=== PATIENT | male | born 1950 | race Caucasian/White ===

== ENCOUNTER 2017-02-04 16:15 | Outpatient (CLI) ==
[2015-03-07 20:37] VITALS: BMI 20.8
--- NOTE | 2017-02-04 17:00 | CT ---
Exam: CT exam of the brain without intravenous contrast. Comparison: 10/20/2013. Reason for exam: Hypertension. FINDINGS: No acute intracranial hemorrhage, mass effect, ventricular dilatation, or territorial inf arction. The quadrigeminal and ambient cisterns are patent. There is no extraaxial fluid collection . Parenchymal changes are seen throughout consistent with chronic microvascular disease. Hypodensit ies in the basal ganglia, thalamus, and vaughn are consistent with previous infarcts. The calvarium is intact. There is extensive edematous change in the white matter tracts. There is a small air-fluid level in the left frontal sinus and left sphenoid sinus. The remainder o f the imaged paranasal sinuses and mastoid air cells are unopacified. Impression: 1. No acute intracranial findings. 2. Chronic microvascular disease with old lacunar, thalamic, and pontine infarcts with edematous isaias nges in the white matter tracts. Imaging findings are likely related to hypertensive encephalopathy. Recommend noncontrast MRI of the brain on outpatient basis for further evaluation. Report faxed to [facility] at 1655 hours on 02/04/2017
--- NOTE | 2017-02-04 17:01 | US ---
EXAM: Ultrasound bilateral carotid duplex. HISTORY: Hypertension. Previous cerebrovascular accident. COMPARISON: None available. TECHNIQUE: Multiple chavis scale and color Doppler images were obtained. FINDINGS: Please note that estimates of internal carotid artery stenoses are based upon NASCET regina garsia. Right carotid: Calcified plaquing present, greatest in the carotid bulb and mid right internal madera tid artery. Possible 50% stenosis in the carotid bulb although no 50% stenosis identified in the in ternal carotid artery. Peak systolic velocity measurement in the right internal carotid artery is 0 .7 meters per second. Right internal to common carotid artery peak systolic velocity ratio measures 1.9. End diastolic velocity measurement in the right internal carotid artery is 0.2 meters per sec ond. Flow in the right vertebral artery is antegrade. Left carotid: Mixed plaquing present without visualized 50% or greater stenosis in the internal car otid artery. Plaquing is greatest in the carotid bulb, which could cause 50% stenosis. Peak systol ic velocity measurement in the left internal carotid artery is 0.9 meters per second. Left internal to common carotid artery peak systolic velocity ratio measures 1.3. End diastolic velocity measure ment in the left internal carotid artery measures 0.4 meters per second. Flow in the left vertebral artery is antegrade. IMPRESSION: 1. Mild, less than 50%, stenosis in the right and left internal carotid arteries by velocity measur ements. 2. Antegrade flow in both vertebral arteries.
[2017-02-04 17:14] VITALS: BMI 20.2
== END 2017-02-04 16:16 | disposition home or self-care (01) ==
LOC: RAD 16:15
PROVIDERS: ATTEND General Practice
DX: I10 Essential (primary) hypertension (principal); I63.9 Cerebral infarction, unspecified; E78.5 Hyperlipidemia, unspecified; E11.9 Type 2 diabetes mellitus without complications; R27.0 Ataxia, unspecified

== ENCOUNTER 2017-02-04 16:22 | Inpatient (IN) ==
[2017-02-04 17:14] VITALS: BMI 20.2
[2017-02-04] MEDS ORDERED: COZAAR ONE (18:08)
[2017-02-04] MEDS: NORVASC PO SCH (18:09)
[2017-02-04] MEDS: COZAAR PO SCH ×3 (18:09→21:02)
[2017-02-04] MEDS: SODIUM CHLORIDE 1,000 ML IV SCH (18:12)
[2017-02-04 18:13] LABS: BASOPHILS % (AUTO) 0.4 % (0.0-3.0); EOSINOPHILS % (AUTO) 0.4 % (0.0-7.0); HEMATOCRIT 50.4 % (42.0-52.0); HEMOGLOBIN 17.4 g/dl (14.0-18.0); IMMATURE GRANULOCYTE % (AUTO) 0.2 % (0.0-5.0); LYMPHOCYTES # (AUTO) 2.9 K/uL (0.60-3.4); LYMPHOCYTES % (AUTO) 34.1 (10.0-50.0); MEAN CORPUSCULAR HEMOGLOBIN 31.2 pg (27.0-31.0); MEAN CORPUSCULAR HGB CONC 34.5 (31.8-35.4); MEAN CORPUSCULAR VOLUME 90.5 fl (80.0-94.0); MONOCYTES # (AUTO) 0.8 K/uL (0.4-2.0); NEUTROPHILS # (AUTO) 4.8 K/ul (2.0-6.9); NEUTROPHILS % (AUTO) 55.9; PLATELET COUNT 207 10^3/uL (140-440); RED BLOOD COUNT 5.57 10^6/ul (4.70-6.10); WHITE BLOOD COUNT 8.48 K/ul (4.2-10.2)
[2017-02-04 18:47] LABS: BILIRUBIN,URINE Negative (NEGATIVE); KETONES,URINE Negative (NEGATIVE); LEUKOCYTE ESTERASE ,URINE Negative (NEGATIVE); NITRITE,URINE Negative (NEGATIVE); PROTEIN,URINE Negative (NEGATIVE); URINE, BLOOD Trace-intact (NEGATIVE)
[2017-02-04 18:48] LABS: ADD URINE MICROSCOPIC YES
[2017-02-04 18:52] LABS: ALBUMIN/GLOBULIN RATIO 1.14; ANION GAP 12.6; CALCIUM 9.8 mg/dL (8.2-10.2); POTASSIUM 3.6 mmol/L (3.5-5.1); TOTAL PROTEIN 7.5 g/dL (5.8-8.1)
[2017-02-04 18:53] LABS: BILIRUBIN,TOTAL 0.91 mg/dL (0.00-1.20); BUN/CREATININE RATIO 12.6; CHOL/HDL RATIO 5.1 (4.5-6.4); CREATININE 1.19 mg/dL (0.60-1.10)
--- NOTE | 2017-02-04 20:48 | CT ---
Exam: CT thorax without contrast. Clinical indication: Chronic cough and chronic smoker. Coarse lung sounds. TECHNIQUE: Axial unenhanced CT images of the thorax were obtained followed by coronal and sagittal reformats. Comparison is made to the prior study dated 03/07/2015. Findings: There is severe underlying centrilobular emphysema. There are pulmonary granulomas scattered bilaterally, consistent with incidental old healed granulom atous disease. There are no worrisome pulmonary parenchymal nodules. There is a calcified pleural plaque at the right lung base. The remainder of the pleural surface is unremarkable. There are no enlarged axillary, hilar or mediastinal lymph nodes, by size criteria. There are coronary artery calcifications. There are two left-sided nonobstructive renal calculi and the largest of which measures 0.5 cm in di ameter. There are two right-sided renal calculi the largest of which measures 0.3 cm in diameter. The visualized bony structures are unremarkable for the patient's age. Impression: 1. Severe underlying centrilobular emphysema. 2. Coronary artery calcifications. 3. Bilateral nonobstructive renal calculi. 4. Incidental evidence of old healed granulomatous disease.
[2017-02-04] MEDS: LOVENOX SUBCUT SCH (21:02)
[2017-02-05] MEDS: HUMULIN R SUBCUT PRN ×2 (06:06→11:59)
[2017-02-05] MEDS ORDERED: MAG-OX PO SCH (09:00)
[2017-02-05] MEDS ORDERED: NON-FORMULARY MEDICATION (Zinc [Zinc] 50 MG) PO SCH (09:00)
[2017-02-05] MEDS ORDERED: EPA PO SCH (09:00)
[2017-02-05] MEDS ORDERED: DHA PO SCH (09:00)
[2017-02-05] MEDS ORDERED: FISH OIL PO SCH (09:00)
[2017-02-05] MEDS: LOVENOX SUBCUT SCH (09:22)
[2017-02-05] MEDS: NORVASC PO SCH (09:23)
[2017-02-05] MEDS: COZAAR PO SCH ×2 (09:23→20:09)
[2017-02-05] MEDS: ZINC-220 PO SCH (09:23)
[2017-02-05] MEDS: NON-FORMULARY MEDICATION (Cinnamon Bark [Cinnamon] 1,500 MG) PO SCH (09:24)
[2017-02-05] MEDS: MAGNESIUM 600 MG PO SCH (09:25)
[2017-02-05] MEDS: OMEGA-3 FISH OIL PO SCH (09:28)
--- NOTE | 2017-02-05 12:11 | MRI ---
EXAM: MRI brain without IV contrast. DATE: 05 Feb 2017. HISTORY: Right-sided weakness, hypertension, encephalopathy. TECHNIQUE: Sagittal T1W, axial T2W, axial FLAIR, axial T1W, axial DWI, and coronal T2W GRE sequence s of the brain were obtained using 1.2 Sachi magnet. No IV contrast. COMPARISON: CT head 02/04/2017. FINDINGS: The lateral ventricles, temporal tips, third ventricle, Sylvian fissures and many frontal lobe sulci are enlarged due to atrophy. No midline shift, mass effect or abnormal extra-axial flui d collection is apparent. No acute hemorrhage or neoplasm is identified. Broad areas of T2W/FLAIR hyperintensity are observed in the white matter abutting each lateral ventricle, and extending into the miller radiata and centrum semiovale bilaterally. Small number of subcentimeter T2W/FLAIR brigh t foci are scattered within the subcortical white matter of both cerebral hemispheres. Old right ba karl ganglia infarct (9.5 x 13 mm), left internal capsule infarct (2.7 x 4 mm), and left putamen infa rct (2 mm) are demonstrated on axial image #14. Old right parietal subcortical white matter lacunar infarct (4 mm) is seen on axial image #16. A nearby small region of T2W/FLAIR hyperintensity is de tected. Old left paramidline pontine infarct (5 x 3 mm) is evident. Small areas of IR hyperintens e are also seen within the brachium pontis bilaterally. T2W/T1W slightly bright, DWI bright, acute infarcts are observed within right thalamus (4.5 mm focus ), left thalamus (6.5 mm focus), right external capsule/basal ganglia extending into the right front al miller radiata ( 8 x 5 x 10 mm focus), and left high parietal centrum semiovale / subcortical whi te matter ( 8 x 6.5 x 10 mm focus). The chavis - white matter differentiation is overall normal. The 7th/8th cranial nerve complexes, cerebellopontine angles, and visible cervical spinal cord are norm al. There is no cerebellar tonsillar ectopia. The pituitary gland is small in size, with CSF filli ng part of the pituitary fossa. Corpus callosum body is bowed upward due to ventricular prominence. Flow voids are present in the major intracranial arteries and in the dural venous sinuses. No ane urysm, AVM or dural venous sinus thrombosis is apparent. No orbit abnormality is identified. The m astoid air cells are unremarkable. There is no acute sinusitis. No neck mass or lymphadenopathy is detected. No calvarial neoplasm or acute fracture is evident. Disc space narrowing, small posterio r osteophytes, and mild central canal stenoses are evident at C3-4. IMPRESSIONS: 1. Acute, non-hemorrhagic bilateral thalamic, right basal ganglia/frontal chorionic, and left parie last infarcts. Consider embolic event. No associated vasogenic edema or mass effect. 2. Old bilateral basal ganglia, right parietal lobe, and left internal capsule infarcts. 3. No acute hemorrhage, neoplasm or hydrocephalus. 4. Mild cerebral and minor cerebellar atrophy. 5. Marked supratentorial white matter changes. DDX: Small vessel disease or chronic hypertensive e ncephalopathy is likely. Demyelinating disease (multiple sclerosis), vasculitis, sequelae of infect ion, or metabolic disorders could look similar. 6. C3-4 disc disease and mild central stenosis. 7. Small pituitary gland. No pituitary lesion.
[2017-02-05] MEDS: ASPIRIN EC PO SCH (14:10)
[2017-02-05] MEDS: PLAVIX PO SCH (14:10)
[2017-02-06] MEDS: SODIUM CHLORIDE 1,000 ML IV SCH (02:20)
[2017-02-06] MEDS: ASPIRIN EC PO SCH (08:08)
[2017-02-06] MEDS: ZINC-220 PO SCH (08:08)
[2017-02-06] MEDS: COZAAR PO SCH ×2 (08:08→20:18)
[2017-02-06] MEDS: OMEGA-3 FISH OIL PO SCH (08:08)
[2017-02-06] MEDS: NORVASC PO SCH (08:08)
[2017-02-06] MEDS: PLAVIX PO SCH (08:09)
[2017-02-06] MEDS: NON-FORMULARY MEDICATION (Cinnamon Bark [Cinnamon] 1,500 MG) PO SCH (08:09)
[2017-02-06] MEDS: MAGNESIUM 600 MG PO SCH (08:09)
[2017-02-06] MEDS: HUMULIN R SUBCUT PRN ×2 (11:04→17:24)
[2017-02-06] MEDS: HYDROCHLOROTHIAZIDE PO SCH (20:41)
[2017-02-07 05:01] LABS: BASOPHILS % (AUTO) 0.3 % (0.0-3.0); EOSINOPHILS # (AUTO) 0.1 K/ul (0.0-0.7); EOSINOPHILS % (AUTO) 0.9 % (0.0-7.0); HEMATOCRIT 45.3 % (42.0-52.0); HEMOGLOBIN 15.4 g/dl (14.0-18.0); IMMATURE GRANULOCYTE % (AUTO) 0.4 % (0.0-5.0); LYMPHOCYTES # (AUTO) 3.2 K/uL (0.60-3.4); MEAN CORPUSCULAR HEMOGLOBIN 30.7 pg (27.0-31.0); MEAN CORPUSCULAR VOLUME 90.4 fl (80.0-94.0); MONOCYTES # (AUTO) 0.8 K/uL (0.4-2.0); MONOCYTES % (AUTO) 9.7 (0-10); NEUTROPHILS # (AUTO) 3.9 K/ul (2.0-6.9); NEUTROPHILS % (AUTO) 48.7; PLATELET COUNT 203 10^3/uL (140-440); RED BLOOD COUNT 5.01 10^6/ul (4.70-6.10); WHITE BLOOD COUNT 7.97 K/ul (4.2-10.2)
[2017-02-07 05:57] LABS: ALBUMIN 3.4 g/dL (3.4-5.0); ALBUMIN/GLOBULIN RATIO 1.21; ANION GAP 11.7; BILIRUBIN,TOTAL 1.08 mg/dL (0.00-1.20); BUN/CREATININE RATIO 13.59; CALCIUM 9.3 mg/dL (8.2-10.2); CREATININE 1.03 mg/dL (0.60-1.10); POTASSIUM 3.7 mmol/L (3.5-5.1); TOTAL PROTEIN 6.2 g/dL (5.8-8.1)
[2017-02-07] MEDS: HYDROCHLOROTHIAZIDE PO SCH (08:00)
[2017-02-07] MEDS: NORVASC PO SCH (08:01)
[2017-02-07] MEDS: COZAAR PO SCH ×2 (08:01→20:28)
[2017-02-07] MEDS: ZINC-220 PO SCH (08:01)
[2017-02-07] MEDS: PLAVIX PO SCH (08:01)
[2017-02-07] MEDS: ASPIRIN EC PO SCH (08:01)
[2017-02-07] MEDS: OMEGA-3 FISH OIL PO SCH (08:01)
[2017-02-07] MEDS: NON-FORMULARY MEDICATION (Cinnamon Bark [Cinnamon] 1,500 MG) PO SCH (08:02)
[2017-02-07] MEDS: MAGNESIUM 600 MG PO SCH (08:02)
[2017-02-07] MEDS: HUMULIN R SUBCUT PRN (11:02)
[2017-02-07] MEDS: SODIUM CHLORIDE 1,000 ML IV SCH (12:17)
[2017-02-07] MEDS ORDERED: CRESTOR PO SCH (22:00)
[2017-02-08] MEDS: HUMULIN R SUBCUT PRN ×2 (06:17→11:23)
[2017-02-08] MEDS: ASPIRIN EC PO SCH (08:21)
[2017-02-08] MEDS: NON-FORMULARY MEDICATION (Cinnamon Bark [Cinnamon] 1,500 MG) PO SCH (08:21)
[2017-02-08] MEDS: COZAAR PO SCH (08:22)
[2017-02-08] MEDS: HYDROCHLOROTHIAZIDE PO SCH (08:23)
[2017-02-08] MEDS: MAGNESIUM 600 MG PO SCH (08:24)
[2017-02-08] MEDS: NORVASC PO SCH (08:27)
[2017-02-08] MEDS: OMEGA-3 FISH OIL PO SCH (08:28)
[2017-02-08] MEDS: PLAVIX PO SCH (08:29)
[2017-02-08] MEDS: ZINC-220 PO SCH (08:29)
--- NOTE | 2017-02-08 08:41 | ECHO2D ---
Date of Exam: 02/05/17 [facility] Reason for Echo: THROMBOEMBOLIC CVA, SOB, DM, HTN, DYSLIPIDEMIA M-Mode Normal Adult Results LV Dimensions Normal Adult Results AoV Opening excursions >1.6 >1.6 LVEDD-base- 3.5-5.8 4.7 Ao root dimensions 2.0-3.7 3.3 LVESD-base- 3.1-4.6 L. Atrium dimensions 1.9-3.8 3.7 Post. Wall thickness 0.8-1.1 1.2 IV septum (thickness) 0.7-1.2 1.2 Post. Wall excursion 0.72-1.3 NORMAL Septal motion NORMAL Systolic motion R. Ventricular cavity 1.5-2.0 NORMAL LVEF 60% 51% Paradoxical septal wall motion NORMAL 2-D : 2-D M Mode Echocardiogram was performed using apical four chamber and left parasternal long and short axis views. Mitral, tricuspid and aortic valves appear to be normal. Contractility of the left ventricle seems to be normal, so is the cavity size. Left atrial cavity size and aortic root appear to be normal. There is no pericardial effusion. There is no thrombus noted in the left ventricular or left aortic cavity. No mitral valve prolapse noted. M-MODE: MV: NORMAL AV: NORMAL TV: NORMAL PV: CHAMBER SIZE: NORMAL WALL MOTION: NORMAL PERICARDIUM: NORMAL INTERPRETATION: 1. BORDERLINE LEFT VENTRICULAR HYPERTROPHY 2. NORMAL LEFT VENTRICULAR CONTRACTILITY--NORMAL VALVES (SUBCOSTAL APPROACH BECAUSE OF COPD) MTDD
--- NOTE | 2017-02-08 12:05 | RS.PTINEVL ---
Subjective - Patient information Date of Evaluation: 02/08/17 Date of Arrival on Unit: 02/04/17 Usual Living Arrangement: With Spouse Living Arrangement Comments: lives with Home Environment: House Medical History: Hypertension, CVA/TIA, COPD, Diabetes Subjective Information/ Patient Comments:: Patient reports having trouble walking. States at home he was bumping into stacy and holding onto furniture. - Level of function Prior to this admission, the patient could do the following:: Independent Selfcare, Independent ADL's, Independent Ambulation Interventions - Objective Patient Orientation: Person, Place, Time, Situation Current Interventions: IV's Range of Motion - ROM Right Upper Extremity AROM: WFL's Left Upper Extremity AROM: WFL's Right Lower Extremity AROM: WFL's Left Lower Extremity AROM: WFL's Muscle Strength - Muscle Strength Right Upper Extremity Strength: Normal Left Upper Extremity Strength: Normal Right Lower Extremity Strength: Mild Weakness Left Lower Extremity Strength: Normal Balance - Sitting Balance and Reactions Static Sitting Balance: Good Dynamic Sitting Balance: Good - Standing Balance and Reactions Static Standing Balance: Fair (+) Dynamic Standing Balance: Fair Functional Mobility - Bed Mobility Rolling R/L: Independent Scooting: Independent Supine to Sit: Independent Sit to Supine: Independent - Transfers Sit to Stand: Independent Stand to Sit: Independent Stand Pivot Transfers: Supervision - Safety Awareness Safety Awareness: Fair (patient is impulsive) Ambulation - Ambulation Weight Bearing Status: FWB Assistance needed with Ambulation: Supervision, CGA Quality of Ambulation: Pt amb. without walker, with a straight cane, and with a rolling walker. Without an assistive device or using st. cane, patient is unsteady and presents to be at a high risk for falls. With rolling walker, patient is much steadier and safe. He agrees that he is safer with using the RW. Ambulation Comments: Patient demonstrates decreased right hip and knee flexion during swing phase. Also demonstrates less right ankle DF with fatigue. Patient does not consistently clear his right foot. Factors Affecting Ambulation: Decreased Safety Treatment time - Units charged Gait trainin - Time with patient Total treatment time: 28 (mins) Patient Education - Education Patient Education: Education of diagnosis, Home Safety Assessment - Assessment Comments: Recommend 5 inch fixed wheeled walker for safety with ambulation. Plan Duration of Treatment: One Time Treatment Anticipated Discharge Destination: Home
[2017-02-08 14:11] VITALS: BP 143/86; TEMP 97.9
--- NOTE | 2017-02-09 15:23 | HP ---
CHIEF COMPLAINT: Weakness right upper and lower extremities. SOURCE OF HISTORY: Patient and . HISTORY OF PRESENT ILLNESS: The patient, last January 22, 2017 about 6 p.m., stood up from sitting and had problems with the right leg. He claimed that the right foot is digging into the carpet. He fell soon after that striking the right shoulder against the wall and hitting his right buttock on the floor. He since then had been dragging the right foot until 02/01/2017, when he was able to bring his foot better. He denied any speech problems or headaches. The patient never presented to the emergency room even at the urging of his . He was seen at the office on the day of admission and the patient still has weakness of the right upper and lower extremity. CT scan of the head was done on as an outpatient showing no acute intracranial findings, chronic microvascular disease with old lacunar infarct, thalamic and pontine infarcts with edematous changes in the white matter. Imaging findings are likely related to hypertensive encephalopathy. Recommend noncontrast MRI of the brain. The carotid ultrasound showed less than 50% stenosis of the right and left internal carotid. Antegrade flow of both vertebral arteries. The patient was advised admission because of the weakness of the right upper and lower extremities and also because of the edema of the brain. The patient was agreeable. PAST PERSONAL HISTORY: This patient had cerebral vascular accident in 2008. A cyst was removed in his head in 1963. Injections to the left eye probably secondary to macular degeneration. Cerebral vascular accident in 03/2009. Vasectomy years ago. Medical conditions consisted of hypertension, peripheral arterial disease and diabetes mellitus. The patient has markedly diminished hearing. FAMILY HISTORY: Father of gastric malignancy at age 51. Mother had diabetes mellitus. SOCIAL HISTORY: The patient is and retired from one job and began working with another job. He works at [employer]. His children are grown and he returned to smoking after four months without and smokes about a pack or more a day. He used to smoke more than 2 packs a day. The patient had stopped all of his medications, except over the counter medications and I had not seen him for about two years. MEDICATIONS: Prior to admission. Vitamin E 800 units daily Fish oil 1,200 mg four a day Cinnamon bark 1,500 mg daily Vitamin B complex one daily Zinc 50 mg tablet daily Saw Ripley 1,350 mg daily Magnesium 600 mg daily Red yeast rice 600 mg capsule daily Other over the counter medications daily ALLERGIES: No known drug allergies. REVIEW OF SYSTEMS: CONSTITUTIONAL: The patient had no fever and no chills, but has some fatigue with weakness of the right upper and lower extremity. 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 He denies any seizures or syncopal episodes. He had fallen because of the weakness of the right lower extremity. VISUAL: The patient has problems with the left eye and had injection from the retina MD. He denies any double vision or transient loss of vision. He had been to the retinologist on the day that he was seen at the office since the retina MD told him to come and see his primary provider. AUDITORY: The patient has markedly decreased hearing, but denies any tinnitus, pain or drainage. RESPIRATORY: The patient has cough that is chronic. This patient is known to have chronic obstructive pulmonary disease and had respiratory failure at one time and shortness of breath, plus wheezing. This patient had stopped smoking lasting for about four months, but is back to the old habit of smoking. He claims that he smokes a pack or more a day. CARDIOVASCULAR: Denies any chest pain or chest oppression. GASTROINTESTINAL: The patient denies any anorexia or nausea or change in bowel habits. GENITOURINARY: Denies any pain, frequency or urgency or urination. MUSCULOSKELETAL: The patient has pain in the right shoulder, which is much, much less now and also pain in the right buttock, but also much less. That did not bother him with his ambulation. He still has weakness of the right lower extremity. 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 INTEGUMENT: No rash or pruritus. ENDOCRINE: The patient has diabetes mellitus, but no polyuria or polydipsia. He had stopped his medications. HEMATOLOGIC: No history of prolonged bleeding. No easy bruising. PSYCHIATRIC: Negative. Affect appears to be normal. PHYSICAL EXAMINATION: GENERAL: We have a 66 year old male admitted to the hospital because of weakness on the right upper and lower extremities since 01/22/2017, sudden onset. VITAL SIGNS: Blood pressure was elevated at the office beyond 200 systolic. Vital signs on admission showed a temperature 97.1, pulse 84, blood pressure, left 207/112, right 207/113. Respiratory rate 14, oxygen saturation 96 on room air. He is 5'11" and 144 pounds and 14.4 ounces. BMI 20.2. HEAD: Unremarkable. FACE: Symmetrical and equal with no facial weakness and no significant tenderness in the frontal or maxillary sinus areas to palpation under pressure. EYES: Pupils are widely dilated. These had been dilated at the Retinologist office. EARS: No inflammation of the external canals. No significant cerumen. Light reflects good. MOUTH: No dentures. THROAT: No inflammation, tumors or exudate. NECK: No masses. No bruit. No tenderness. No rigidity. CHEST: Essentially symmetrical and equal with good expansion and no remarkable tenderness. LUNGS: Breath sounds are heard in both sides and diminished and no wheezing. HEART: Audible and regular with good tones. No murmurs. ABDOMEN: Flat, soft with no remarkable tenderness. No guarding. Bowel sounds are active. No masses palpable and no bruit. EXTERNAL GENITALIA: Not examined. RECTAL: Not performed. LOWER EXTREMITIES: Essentially symmetrical with no significant edema. No tenderness in the calf muscles. Tibial pulses are absent. Right lower extremity is slightly weaker than the left. UPPER EXTREMITIES: Symmetrical and equal. 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 ASSESSMENT: 1. RIGHT HEMIPARESIS, SECONDARY TO LEFT CVA 2. HYPERTENSION, UNCONTROLLED 3. DIABETES MELLITUS TYPE II BY HISTORY 4. PERIPHERAL ARTERIAL DISEASE, ABSENT POSTERIOR AND ANTERIOR TIBIALS 5. HISTORY OF CVA ON PLAVIX 2008 6. HISTORY OF CHRONIC TOBACCO USE AND ABUSE, PERSISTENT 7. HISTORY OF NECK PAIN 8. 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 HISTORY OF MASS RIGHT LATERAL LEFT PROGNOSIS: Guarded. Note: The patient also had fallen again on 01/23/2017 while in the kitchen and his had to get him up since he was unable to get up without assistance. He also had staggered in the bathroom, but had not fallen according to him. This patient is noncompliant and I did advise him that he needed to take his medication, since that more or less reduces the chances of having another stroke. This patient probably should have an MRA to see if his condition had completely stabilized. He will be given Plavix, as well as Aspirin and the anti -hypertensive medication. He probably also will need statin medication. He is advised to stop smoking. MTDD
--- NOTE | 2017-02-10 10:52 | PN ---
DATE OF VISIT: 02/05/17 SUBJECTIVE: The patient is alert and responsive with movement of both upper and lower extremities. Temperature is 97.9, pulse 73, blood pressure 180/108, respiratory rate 20 and oxygen saturation 95% at room. The patient's blood pressure is down from where it was. We will try to bring it down to 160. We will see what the blood pressure is by tomorrow. LUNG: Diminished breath sounds in both sides. Some course rales, few. HEART: Normal sinus rhythm. ABDOMEN: Non tender. MTDD
--- NOTE | 2017-02-10 10:57 | PN ---
DATE OF VISIT: 02/06/17 SUBJECTIVE: The patient is alert and oriented times four and no dyspneic and tachypneic. His color is good. Temperature 97.2,. pulse 68, blood pressure 178/98, respiratory rate 20 and oxygen saturation 96% at room air. Hydrochlorothiazide will be added to his regimen. MTDD
--- NOTE | 2017-02-10 11:04 | PN ---
DATE OF VISIT: 02/07/17 SUBJECTIVE: Today the patient is alert and oriented times and responsive with good movement of both upper and lower extremities. The patient denies any dragging of his left leg or foot anymore. His strength has improved remarkably. The patient was advised that I needed an evaluation for physical therapy since he would need that at least for the next six weeks and it could be done as an outpatient. I would also refer him to a neurologist who had seen before when he had a previous CVA and see if they agree with the present regimen consisting of Plavix 75mg plus aspiring 81mg. I repeated again that he could not smoke anymore with his problems of COPD that is severe as well as the cerebral vascular accident that had repeated. VITAL SIGNS: Temperature 97.1, pulse 66, blood pressure 174/96, respiratory rate 20 and oxygen saturation 95% at room air. Hydrochlorothiazide was added to the regimen and hopefully bringing the blood pressure down to 160 and maybe to 150. It was will be initiated on a Statin, Crestor. JUAN
--- NOTE | 2017-02-16 11:45 | DS ---
PATIENT IDENTIFICATION: 66 year old male admitted to the hospital from the office because of weakness of the right upper and lower extremities beginning January 22, 2017 about 6 p.m. The patient claimed that he was sitting in a chair and tried to stand up and noted that his right leg is digging into the carpet and meaning that he is not able to lift it up. The patient fell to the floor landing on his right shoulder and his right buttock. He had fallen a couple of times and needed assistance from his to get him up. This patient had drug his right lower extremity until 02/01/2017. He still had persistent weakness. He was seen at the office on 02/04/[address] scan of the head showing no acute intracranial findings, chronic microvascular disease with old lacunar, thalamic and pontine infarcts. Some edematous changes in the white matter. Findings related to hypertensive encephalopathy. This patient was admitted to the hospital because of these findings, as well as the persistent right hemiparesis. This patient had a previous CVA in 2008. The patient had stopped all of his medications, except over the counter medications since about two years ago. HOSPITAL COURSE: VITAL SIGNS: The patient's vital signs on admission revealed a temperature of 97.1 at 5:01 p.m. 02/04/2017. Blood pressure 207/112 and 207/113. Respiratory rate 14, oxygen saturation 96 at room air. 5'11", 144 pounds and 14 ounces, BMI 20. EYES: Pupils were widely dilated, since it was dilated at the [facility] office. MOUTH: Mouth has no dentures. NECK: No masses and no bruit and no rigidity. CHEST: Symmetrical and equal with good expansion. No remarkable tenderness. LUNGS: Breath sounds are diminished, but no wheezing and no rales. HEART: Normal sinus rhythm with good tones. No murmurs. ABDOMEN: Flat, soft with no remarkable tenderness. No guarding. Bowel sounds are active. No masses palpable. LOWER EXTREMITIES: The right leg is weaker than the left side, slight. UPPER EXTREMITIES: Right upper extremity is also slightly weaker compared to left on hand virginia line attendant. The patient was admitted with right hemiparesis, hypertension uncontrolled, history of diabetes mellitus type II, peripheral arterial disease, posterior anterior tibials absent. He had a history of CVA in 2008. The patient while in the hospital remained alert with movement of the right lower and upper extremities with no significant headaches and no visual disturbances. CT of the chest done 02/04/2017 showed severe underlying centrilobular emphysema, coronary artery calcifications, bilateral nonobstructive renal calculi, old healed granulomatous disease of the lung. CT of the head showed some edematous white matter on 02/04/2017 and MRI without contrast done 02/05/2017 revealed acute nonhemorrhagic bilateral thalamic infarct, right basal ganglia/frontal chorionic and left parietal infarcts. Consider embolic event. No associated vasogenic edema or mass effect. Old bilateral basal ganglia, right parietal lobe and left internal capsule infarcts. No acute hemorrhage, neoplasm or hydrocephalus. The patient had been placed on his previous medications of Plavix 75 mg a day, as well as Aspirin 81 mg daily. This patient also was advised to stop smoking, more so that this is the second episode of cerebral vascular accident. The next one would probably be devastating. The patient's labs, CBC times two showed no significant abnormalities, no significant changes. Chemistry showed some mild changes. Fasting blood sugar 122, A1C 6.4. Repeat chemistry on 02/07/17 showed the sugar 135. The Fructosamine level 237, within normal. The rest of chemistries were slightly abnormal, but not remarkable and not clinically significant. Urinalysis showed trace of blood intact and RBC 5 to 10. This was discussed with him thoroughly with regards to microscopic hematuria. The patient was placed on Humulin R sliding scale while in the hospital. The blood pressure was treated with Amlodipine 5 mg daily, Losartan 50 mg twice a day. He also was given Enoxaparin 40 mg subq daily. Given Plavix 75 mg daily, Aspirin 81 mg daily, Hydrochlorothiazide 12.5 mg daily and Crestor 20 mg daily. The patient appears to tolerate all of the medications. Blood pressure remained elevated 164 systolic and diastolic 98 to 102. The patient's blood pressure remained at that level until the day of discharge where the blood pressure recorded at the time of discharge was 143/86, temperature 97.9, pulse rate entry is wrong. Oxygen saturation at room air 93, questionable. The patient had dyspnea, nor tachypnea and no cyanosis and was not complaining of any shortness of breath at all. The patient continued to remain stable and was gaining more strength in the right lower extremity. The patient was felt ready to go home and appointment with Physical Therapy for physical rehab was then made. The patient will be referred to a neurologist for further care. The patient at the time of discharge was alert, ambulatory with no distress and no chest pain, no abdominal pain, no headaches, no visual disturbances. EYES: The pupils are now smaller and reactive. LUNGS: Breath sounds are heard in both sides with no rales or wheezing, but diminished. HEART: Audible and regular with good tones. ABDOMEN: Nontender. PLAN: The patient was given prescriptions on discharge consisting of Amlodipine 5 mg daily, Aspirin 81 mg daily, Plavix 75 mg daily, Hydrochlorothiazide 12.5 mg daily, Losartan 50 twice a day, Crestor 20 mg daily , orally. He should continue his Cinnamon Bark, Fish oil, Magnesium and nonformulary medication. The patient was advised to stop smoking. Take the medications that was prescribed. Keep appointment with Dr. Aponte 2016. Appointment 11:30 in the morning. Use a walker while walking. The patient is to see me in one week and before if there is any problems. Consideration will be given to prescription of Keppra 500 mg twice a day when he comes back to the office. FINAL DIAGNOSES: 1. RIGHT HEMIPARESIS 2. HYPERTENSION, UNCONTROLLED 3. CHRONIC TOBACCO USE AND ABUSE 4. HISTORY OF DIABETES MELLITUS TYPE II 5. PERIPHERAL ARTERIAL DISEASE, ABSENT POSTERIOR AND ANTERIOR TIBIALS 6. DYSLIPIDEMIA 7. HISTORY OF NECK PAIN 8. HISTORY OF MASS RIGHT LATERAL CHEST MTDD
== END 2017-02-08 16:45 | disposition home or self-care (01) | DRG 65 ==
LOC: MEDSURG B 16:22
PROVIDERS: ADMIT General Practice; ATTEND General Practice
DX: I63.9 Cerebral infarction, unspecified (principal); G81.91 Hemiplegia, unspecified affecting right dominant side; I67.4 Hypertensive encephalopathy; I10 Essential (primary) hypertension; R27.0 Ataxia, unspecified; E11.9 Type 2 diabetes mellitus without complications; J43.2 Centrilobular emphysema; I73.9 Peripheral vascular disease, unspecified; E78.5 Hyperlipidemia, unspecified; R31.21 Asymptomatic microscopic hematuria; F17.200 Nicotine dependence, unspecified, uncomplicated; Z86.73 Personal history of transient ischemic attack (TIA), and cerebral infarction without residual deficits; Z91.14 Patient's other noncompliance with medication regimen; Z79.899 Other long term (current) drug therapy
CPT/HCPCS: 36415; 80053; 80061; 81001; 82962; 82985; 83036; 83880; 84443; 85025; 93005; 93010; 99223; 99231; 99232; 99239

== ENCOUNTER → 2017-02-24 | Outpatient (RCR) ==
[2017-02-04 17:14] VITALS: BMI 20.2
--- NOTE | 2017-02-24 15:51 | RS.OTEVAL ---
Subjective Date of Note: 02/24/17 Visit #: 1 Date of Evaluation: 02/24/17 Payer Source: MEDICARE Date of Onset/Injury/Change in Status: 01/22/17 Surgery Performed?: No Treatment Diagnosis: RUE impaired coordination, RUE weakness Treatment Side (optional): Right *Precautions: SOA Prior Level of Function.....Patient was independent with: ADL's, Self Care, Work /Vocation, Caregiving, Ambulation/Mobility, Community Integration/Access History of Condition/Mechanism of Injury: Pt reports he was walking in the room to get to his computer and fell to the right to the floor. Current Complaints/Gains: Pt complains of impaired RUE fine motor coordination, difficulty with handwriting, coffee cup shakes due to weakness, impaired balance. Medical History Medical History: Hypertension, CVA/TIA, COPD, Diabetes Medical History Comments:: CVA, Right side weakness, HTN, Diabetes, smoker Smoking Status: Current every day smoker Patient's Goals: To get stronger and improve her handwriting and fine motor coordination, improve her balance. Pain Assessment - Pain Description Pain Description: Aching Pain Location: Right shoulder Pain Description: soreness intermittently Current Pain Intensity: 0 Worst Pain Intensity: 6 Functional Outcome Measures UE Functional Index: 67 - G Codes & Severity Modifier G Codes: Carry current status G8984 67.5% impaired (CL). Carry D/C Status G8986 is 0% impaired (CH) Source of G Code score: Carrying, moving, and handling Observation - Observation Posture: Forward Head Handedness: Right Shoulder ROM: Bilaterally WFL's Shoulder Muscle Strength: Left WFL's - Right Shoulder Strength Right Shoulder Flexion: 4 Good Right Shoulder Extension: 4 Good Right Shoulder Abduction: 4 Good Right Shoulder Adduction: 4 Good Right Shoulder External Rotation: 4 Good Right Shoulder Internal Rotation: 4 Good - Special Tests Shoulder Empty Can (Supraspinatus) Test: Negative Left Shoulder Speed's Sign Test: Negative Left Elbow ROM: Bilaterally WFL's Elbow Muscle Strength: Bilaterally WFL's Wrist ROM: Bilaterally WFL's Wrist Muscle Strength: Bilaterally WFL's - Wire Frame Maker Strength Left Wire Frame Maker Strength: 64 Right Wire Frame Maker Strength: 69 Wire Frame Maker Strength Left Hand Wire Frame Maker Strength: 64 Right Hand Wire Frame Maker Strength: 69 Dynamometer Testing Position: 2nd Position Sensation Right Upper Extremity: Intact/Normal Left Upper Extremity: Intact/Normal Sensation Description: Within Normal Limits Coordination - Tests Right Finger Opposition: Moderate Deviation Finger to Nose: Normal/Intact Interventions - Exercise/Activities Exercise/Activities/Manual Therapy: EX HOME EXERCISE PROGRAM: Fine motor activities, - Charges Total Direct Minutes: 45 Total Treatment Time: 15 Procedures billed for this date of service:: Yesika Heller, Assessment Assessment: Pt has impaired coordination of the Right hand with a possible dupeytrens of the small digit. Patient Education: Education of diagnosis, Home Exercise Program, Education of Plan of Care Rehab Potential: Good Problems/Comments: difficulty with fine motor tasks. RUE shoulder weakness Short Term Goals Goal #1: Pt to improve handwriting of RUE to be intact. Goal to be met by: 03/10/17 Goal #2: Pt to improve dyn. stand balance for fine motor activity to be good. Goal to be met by: 03/10/17 Goal #3: Pt to increase RUE shoulder strength to 4+/5 Goal to be met by: 03/10/17 Goal #4: Pt to increase RUE coordination to be intact Goal to be met by: 03/10/17 Rn Home Care Goals Goal #1: Pt to improve RUE coordination to be intact. Goal to be met by: 03/31/17 Goal #2: Pt to increase dyn. standing balance to Good + for fine motor activities. Goal to be met by: 03/31/17 Goal #3: Pt to increase RUE strength to 5/5 Goal to be met by: 03/31/17 Goal #4: Pt to increase fine motor skills to be intact. Goal to be met by: 03/31/17 Plan - Treatment to be provided Procedures: Therapeutic Exercises, Therapeutic Activity, Neuromuscular Rehab, Patient Education Modalities: Electrical Stimulation, Ultrasound/Phonophoresis, Class IV Laser, Cryotherapy, Hot Packs - Treatment Plan Frequency: 2 X week Duration: 4 weeks ORDER # VISITS AND/OR THROUGH DATE: March 31, 2017 - Treatment Code (1) Muscle weakness of right arm Comments: M62.81 muscle weakness (2) Impaired coordination of upper extremity Comments: R27.8 impaired coordination
== END ==
PROVIDERS: ATTEND General Practice
DX: I63.9 Cerebral infarction, unspecified (principal); G81.91 Hemiplegia, unspecified affecting right dominant side

== ENCOUNTER 2017-03-09 13:00 | Outpatient (RCR) ==
--- NOTE | 2017-02-25 15:37 | RS.OTDNOTE ---
Subjective Date of Note: 02/25/17 Visit #: 2 Date of Evaluation: 02/24/17 Payer Source: MEDICARE Date of Onset/Injury/Change in Status: 01/22/17 Surgery Performed?: No Treatment Diagnosis: RUE impaired coordination, RUE weakness Treatment Side (optional): Right *Precautions: SOA Prior Level of Function.....Patient was independent with: ADL's, Self Care, Work /Vocation, Caregiving, Ambulation/Mobility, Community Integration/Access History of Condition/Mechanism of Injury: Pt reports he was walking in the room to get to his computer and fell to the right to the floor. Current Complaints/Gains: Pt states c/o "stabbing maya pain in shoulder." States decreased ability to write and becomes tearful when ed on importance of quick medical attention with stroke symptoms. Pain Assessment - Pain Description Pain Description: Sharp, Aching, Acute Pain Location: Right shoulder Pain Description: soreness intermittently Current Pain Intensity: 2 Worst Pain Intensity: 8 Other comments regarding pain:: Pain and tenderness with palpation/trigger point therapy. Modalities - Treatment Modality: Ultrasound Parameters/Method Applied: 1.5w/cm2 x 7 mins x 2 locations each Patient Position: Sitting - Hot Pack/Cryotherapy Treatment: Hot Pack (HP x 15 mins ) Interventions - Exercise/Activities Exercise/Activities/Manual Therapy: Manual therapy/trigger point therapy, ISO x 4 directions, /, green t-band shoulder retraction and bicep curl along with red t-putty ex for GS and FMC. Pt and spouse ed on HEP along with utilizing HP/ CP for pain relief. HOME EXERCISE PROGRAM: Fine motor activities, green t-band and ISO ex x 4 directions. - Charges Total Direct Minutes: 47 Total Treatment Time: 62 Procedures billed for this date of service:: HP US EX MT Assessment Patient Education: Education of diagnosis, Body/Joint mechanics, Home Exercise Program, Home Safety, Activity Modification, Education of Plan of Care Patient demonstrates compliance with HEP?: Yes Short Term Goals Goal #1: Pt to improve handwriting of RUE to be intact. Goal to be met by: 03/10/17 Progress towards goal: Progressing Goal #2: Pt to improve dyn. stand balance for fine motor activity to be good. Goal to be met by: 03/10/17 Progress towards goal: Progressing Goal #3: Pt to increase RUE shoulder strength to 4+/5 Goal to be met by: 03/10/17 Progress towards goal: Progressing Goal #4: Pt to increase RUE coordination to be intact Goal to be met by: 03/10/17 Progress towards goal: Progressing Penitentiary Goals Goal #1: Pt to improve RUE coordination to be intact. Goal to be met by: 03/31/17 Progress towards goal: Progressing Goal #2: Pt to increase dyn. standing balance to Good + for fine motor activities. Goal to be met by: 03/31/17 Progress towards goal: Progressing Goal #3: Pt to increase RUE strength to 5/5 Goal to be met by: 03/31/17 Progress towards goal: Progressing Goal #4: Pt to increase fine motor skills to be intact. Goal to be met by: 03/31/17 Progress towards goal: Progressing Plan PLAN OF CARE EXPIRES ON:: 03/31/17 ORDER # VISITS AND/OR THROUGH DATE: March 31, 2017 PLAN: Continue Plan of Care Frequency: 2 X week Duration: 4 weeks
--- NOTE | 2017-03-02 15:08 | RS.OTDNOTE ---
Subjective Date of Note: 03/02/17 Visit #: 3 Date of Evaluation: 02/24/17 Payer Source: MEDICARE Date of Onset/Injury/Change in Status: 01/22/17 Surgery Performed?: No Treatment Diagnosis: RUE impaired coordination, RUE weakness Treatment Side (optional): Right *Precautions: SOA Prior Level of Function.....Patient was independent with: ADL's, Self Care, Work /Vocation, Caregiving, Ambulation/Mobility, Community Integration/Access History of Condition/Mechanism of Injury: Pt reports he was walking in the room to get to his computer and fell to the right to the floor. Current Complaints/Gains: Pt states he has c/o LOB in his bathroom 2* walking sideways 2* size of room and furnishings. States his dizziness and LOB is improving and is much better now vs when he first went home from hospital. States numerous falls and that he feels like he is leaning forward. Pain Assessment - Pain Description Pain Description: Sharp, Aching, Acute Pain Location: Right shoulder Pain Description: soreness intermittently Current Pain Intensity: 2-3 Worst Pain Intensity: 7 Other comments regarding pain:: (R) shoulder and cervical Modalities - Treatment Modality: Ultrasound Parameters/Method Applied: 1.5w/cm2 x 10 mins. Treatment Area: cervical/shouldre Patient Position: Sitting - Hot Pack/Cryotherapy Treatment: Hot Pack Interventions - Exercise/Activities Exercise/Activities/Manual Therapy: ISO x 4 directions, 06/27, green t-band/3# hand weight RTC series, shoulder retraction and bicep curl along with red t- putty ex/red and blue digi-flex for GS and FMC. NMR in sitting(ball) and standing with high fx bending/reaching along with side-steps to L/R. Weight shifting x 4 directions with pt correcting with CGA. HOME EXERCISE PROGRAM: Fine motor activities, green t-band and ISO ex x 4 directions. - Charges Total Direct Minutes: 42 Total Treatment Time: 57 Procedures billed for this date of service:: HP US EX NMR Assessment Patient Education: Education of diagnosis, Body/Joint mechanics, Home Exercise Program, Home Safety, Activity Modification, Education of Plan of Care Patient demonstrates compliance with HEP?: Yes Short Term Goals Goal #1: Pt to improve handwriting of RUE to be intact. Goal to be met by: 03/10/17 Progress towards goal: Progressing Comments: States "getting better" Goal #2: Pt to improve dyn. stand balance for fine motor activity to be good. Goal to be met by: 03/10/17 Progress towards goal: Progressing Goal #3: Pt to increase RUE shoulder strength to 4+/5 Goal to be met by: 03/10/17 Progress towards goal: Partially Met Goal #4: Pt to increase RUE coordination to be intact Goal to be met by: 03/10/17 Progress towards goal: Partially Met Shelter Goals Goal #1: Pt to improve RUE coordination to be intact. Goal to be met by: 03/31/17 Progress towards goal: Progressing Goal #2: Pt to increase dyn. standing balance to Good + for fine motor activities. Goal to be met by: 03/31/17 Progress towards goal: Progressing Goal #3: Pt to increase RUE strength to 5/5 Goal to be met by: 03/31/17 Progress towards goal: Progressing Goal #4: Pt to increase fine motor skills to be intact. Goal to be met by: 03/31/17 Progress towards goal: Progressing Plan PLAN OF CARE EXPIRES ON:: 03/31/17 ORDER # VISITS AND/OR THROUGH DATE: March 31, 2017 PLAN: Continue Plan of Care Frequency: 2 X week Duration: 4 weeks
--- NOTE | 2017-03-04 14:28 | RS.OTDNOTE ---
Subjective Date of Note: 03/04/17 Visit #: 4 Date of Evaluation: 02/24/17 Payer Source: MEDICARE Date of Onset/Injury/Change in Status: 01/22/17 Surgery Performed?: No Treatment Diagnosis: RUE impaired coordination, RUE weakness Treatment Side (optional): Right *Precautions: SOA Prior Level of Function.....Patient was independent with: ADL's, Self Care, Work /Vocation, Caregiving, Ambulation/Mobility, Community Integration/Access History of Condition/Mechanism of Injury: Pt reports he was walking in the room to get to his computer and fell to the right to the floor. Current Complaints/Gains: pt states he has the most difficulty with applying the right amount of pressure with his UE with hand writing and shaving. States he has always had "beautiful hand writing" but states he does not know his signature now. Pain Assessment - Pain Description Pain Description: Tightness, Dull Pain Location: Right shoulder Pain Description: soreness intermittently Current Pain Intensity: 1 Worst Pain Intensity: 2-3 Modalities - Treatment Modality: Ultrasound Parameters/Method Applied: 1.5w/cm2 x 10 mins Treatment Area: scapula/cervical Patient Position: Sitting - Hot Pack/Cryotherapy Treatment: Hot Pack Interventions - Exercise/Activities Exercise/Activities/Manual Therapy: Green t-band/3# hand weight RTC series, shoulder retraction and bicep curl along with red blue and green digi-flex for GS and FMC. NMR in sitting(ball) and standing with high fx bending/reaching along with side-steps to L/R. Weight shifting x 4 directions with pt correcting with CGA. Pt also performed standing tree pose B LE"s with CGA/Min A to regain DAKSHA. Handwriting skills trng also performed with pt sent home with practice sheets for wave, point, loop, and hill shapes HOME EXERCISE PROGRAM: Fine motor activities, - Charges Total Direct Minutes: 48 Total Treatment Time: 62 Procedures billed for this date of service:: US ACT NMR Assessment Patient Education: Education of diagnosis, Body/Joint mechanics, Home Exercise Program, Home Safety, Activity Modification, Education of Plan of Care Patient demonstrates compliance with HEP?: Yes Short Term Goals Goal #1: Pt to improve handwriting of RUE to be intact. Goal to be met by: 03/10/17 Progress towards goal: Progressing Goal #2: Pt to improve dyn. stand balance for fine motor activity to be good. Goal to be met by: 03/10/17 Progress towards goal: Progressing Goal #3: Pt to increase RUE shoulder strength to 4+/5 Goal to be met by: 03/10/17 Progress towards goal: Met Goal #4: Pt to increase RUE coordination to be intact Goal to be met by: 03/10/17 Progress towards goal: Met Jockey Room Custodian Goals Goal #1: Pt to improve RUE coordination to be intact. Goal to be met by: 03/31/17 Progress towards goal: Progressing Goal #2: Pt to increase dyn. standing balance to Good + for fine motor activities. Goal to be met by: 03/31/17 Progress towards goal: Progressing Goal #3: Pt to increase RUE strength to 5/5 Goal to be met by: 03/31/17 Progress towards goal: Progressing Goal #4: Pt to increase fine motor skills to be intact. Goal to be met by: 03/31/17 Progress towards goal: Progressing Plan PLAN OF CARE EXPIRES ON:: 01/29/17 ORDER # VISITS AND/OR THROUGH DATE: March 31, 2017 PLAN: Continue Plan of Care Frequency: 2 X week Duration: 3 weeks
--- NOTE | 2017-03-09 13:59 | RS.OTDNOTE ---
Subjective Date of Note: 03/09/17 Visit #: 5 Date of Evaluation: 02/24/17 Payer Source: MEDICARE Date of Onset/Injury/Change in Status: 01/22/17 Surgery Performed?: No Treatment Diagnosis: RUE impaired coordination, RUE weakness Treatment Side (optional): Right *Precautions: SOA Prior Level of Function.....Patient was independent with: ADL's, Self Care, Work /Vocation, Caregiving, Ambulation/Mobility, Community Integration/Access History of Condition/Mechanism of Injury: Pt reports he was walking in the room to get to his computer and fell to the right to the floor. Current Complaints/Gains: Pt states UE pain is "completely gone." States his breathing and being out of breath is his only trouble. States he can barely walk one room to another without becoming SOA. Pt ed on pulmonary rehab-taken to dept. Pt states he believes that is a good idea and gives his info to dept for referral. Pain Assessment - Pain Description Pain Location: Right shoulder Pain Description: soreness intermittently Current Pain Intensity: 0 Worst Pain Intensity: 0 Interventions - Exercise/Activities Exercise/Activities/Manual Therapy: Green t-band HEP instruction along with handwriting skills trng performed with pt sent home with practice sheets for wave, point, loop, and hill shapes HOME EXERCISE PROGRAM: Fine motor activities, - Charges Total Direct Minutes: 25 Total Treatment Time: 25 Procedures billed for this date of service:: EX Assessment Patient Education: Education of diagnosis, Body/Joint mechanics, Home Exercise Program, Home Safety, Activity Modification, Education of Plan of Care Patient demonstrates compliance with HEP?: Yes Short Term Goals Goal #1: Pt to improve handwriting of RUE to be intact. Goal to be met by: 03/10/17 Progress towards goal: Met Goal #2: Pt to improve dyn. stand balance for fine motor activity to be good. Goal to be met by: 03/10/17 Progress towards goal: Partially Met Goal #3: Pt to increase RUE shoulder strength to 4+/5 Goal to be met by: 03/10/17 Progress towards goal: Met Goal #4: Pt to increase RUE coordination to be intact Goal to be met by: 03/10/17 Progress towards goal: Met Brim Pouncer Machine Operator Goals Goal #1: Pt to improve RUE coordination to be intact. Goal to be met by: 03/31/17 Progress towards goal: Met Goal #2: Pt to increase dyn. standing balance to Good + for fine motor activities. Goal to be met by: 03/31/17 Progress towards goal: Not Met Goal #3: Pt to increase RUE strength to 5/5 Goal to be met by: 03/31/17 Progress towards goal: Partially Met Goal #4: Pt to increase fine motor skills to be intact. Goal to be met by: 03/31/17 Progress towards goal: Met Plan PLAN OF CARE EXPIRES ON:: 03/31/17 ORDER # VISITS AND/OR THROUGH DATE: March 31, 2017 PLAN: Plan for Discharge Frequency: DC Duration: DC (Pt D/C'd at this time. Pt states no problems with arms, breathing is my problem.)
--- NOTE | 2017-03-22 15:28 | RS.OTQKDC ---
OT Discharge Date of Discharge: 03/09/17 Number of Visits: 5 Reason for Discharge: No pain in UE. Most trouble with breathing. [place] eating and doing dishes and runs OOB easily. Pt referred to pulmonary rehab. Strength is 4+/5-5/5. G Codes: Carry, moving, and handling. Goal: CH, Discharge CI
== END 2017-03-26 ==
PROVIDERS: ATTEND General Practice
DX: I63.9 Cerebral infarction, unspecified (principal); G81.91 Hemiplegia, unspecified affecting right dominant side

== ENCOUNTER 2017-03-17 08:53 | Outpatient (CLI) | END 2017-03-17 08:54 | disposition home or self-care (01) | LOC: CAR 08:53 | PROVIDERS: ATTEND General Practice | DX: J44.9 Chronic obstructive pulmonary disease, unspecified (principal) ==

== ENCOUNTER 2017-03-23 13:40 | Outpatient (RCR) ==
[2017-03-23 14:20] VITALS: BP 128/60
== END 2017-03-26 ==
LOC: CAR.REHAB 13:40
PROVIDERS: ATTEND General Practice
DX: J44.9 Chronic obstructive pulmonary disease, unspecified (principal)

== ENCOUNTER 2017-03-29 08:24 | Outpatient (RCR) ==
[2017-04-22 13:57] VITALS: BP 132/62
== END 2017-04-26 ==
LOC: PUL.REHAB 08:24
PROVIDERS: ATTEND General Practice
DX: J44.9 Chronic obstructive pulmonary disease, unspecified (principal)

== ENCOUNTER 2017-04-27 07:15 | Outpatient (RCR) ==
[2017-05-25 13:20] VITALS: BP 138/68
== END 2017-05-27 ==
LOC: PUL.REHAB 07:15
PROVIDERS: ATTEND General Practice
DX: J44.9 Chronic obstructive pulmonary disease, unspecified (principal)

== ENCOUNTER 2017-05-24 10:28 | Outpatient (CLI) ==
--- NOTE | 2017-05-24 12:07 | DI ---
EXAM: CHEST FRONTAL AND LATERAL VIEWS HISTORY: Acute upper respiratory infection. COMPARISON: 05/22/2015 FINDINGS: Heart size remains normal. There is at least mild aortic atherosclerosis. There is diffu se, chronic appearing interstitial accentuation. Lungs are hyperinflated and there is relative luce ncy of the lung zones suggesting emphysema. There are scattered calcifications suggesting old granu lomatous disease. No acute infiltrates are seen. No vascular congestion. There is no consolidatio n, visible pleural fluid or pneumothorax. Bones reveal no acute fracture. IMPRESSION: Probable chronic obstructive pulmonary disease, correlate clinically. No acute cardiop ulmonary process.
== END 2017-05-24 10:29 | disposition home or self-care (01) ==
LOC: RAD 10:28
PROVIDERS: ATTEND Emergency Medicine
DX: J06.9 Acute upper respiratory infection, unspecified (principal)

== ENCOUNTER 2017-05-28 08:47 | Outpatient (RCR) ==
[2017-06-24 13:11] VITALS: BP 144/58
== END 2017-06-26 ==
LOC: PUL.REHAB 08:47
PROVIDERS: ATTEND General Practice
DX: J44.9 Chronic obstructive pulmonary disease, unspecified (principal)

== ENCOUNTER 2017-07-06 09:57 | Outpatient (CLI) ==
[2017-07-06 10:23] LABS: BASOPHILS % (AUTO) 0.1 % (0.0-3.0); EOSINOPHILS % (AUTO) 0.5 % (0.0-7.0); HEMATOCRIT 44.2 % (42.0-52.0); HEMOGLOBIN 15.4 g/dl (14.0-18.0); IMMATURE GRANULOCYTE % (AUTO) 0.1 % (0.0-5.0); LYMPHOCYTES # (AUTO) 3.1 K/uL (0.60-3.4); LYMPHOCYTES % (AUTO) 41.7 (10.0-50.0); MEAN CORPUSCULAR HEMOGLOBIN 31.8 pg (27.0-31.0); MEAN CORPUSCULAR HGB CONC 34.8 (31.8-35.4); MEAN CORPUSCULAR VOLUME 91.3 fl (80.0-94.0); MONOCYTES # (AUTO) 0.7 K/uL (0.4-2.0); MONOCYTES % (AUTO) 9.3 (0-10); NEUTROPHILS # (AUTO) 3.6 K/ul (2.0-6.9); NEUTROPHILS % (AUTO) 48.3; PLATELET COUNT 234 10^3/uL (140-440); RED BLOOD COUNT 4.84 10^6/ul (4.70-6.10)
[2017-07-06 10:24] LABS: BILIRUBIN,URINE Negative (NEGATIVE); KETONES,URINE Negative (NEGATIVE); LEUKOCYTE ESTERASE ,URINE Negative (NEGATIVE); NITRITE,URINE Negative (NEGATIVE); PROTEIN,URINE Negative (NEGATIVE); URINE, BLOOD Negative (NEGATIVE)
[2017-07-06 10:25] LABS: ADD URINE MICROSCOPIC NO
[2017-07-06 10:40] LABS: ALBUMIN 3.7 g/dL (3.4-5.0); ANION GAP 12.8; BILIRUBIN,TOTAL 0.85 mg/dL (0.00-1.20); BUN/CREATININE RATIO 14.51; CALCIUM 10.6 mg/dL (8.2-10.2); CHOL/HDL RATIO 3.4 (4.5-6.4); CREATININE 1.24 mg/dL (0.60-1.10); POTASSIUM 3.8 mmol/L (3.5-5.1); TOTAL PROTEIN 7.4 g/dL (5.8-8.1)
== END 2017-07-06 09:58 | disposition home or self-care (01) ==
LOC: LAB 09:57
DX: I10 Essential (primary) hypertension (principal); E11.9 Type 2 diabetes mellitus without complications; I63.9 Cerebral infarction, unspecified; E78.5 Hyperlipidemia, unspecified; Z79.899 Other long term (current) drug therapy; Z12.5 Encounter for screening for malignant neoplasm of prostate
CPT/HCPCS: 36415; 80053; 80061; 81001; 83036; 85025; 93005; 93010

== ENCOUNTER 2017-07-28 07:08 | Outpatient (RCR) ==
[2017-08-17 13:28] VITALS: BP 126/54
== END 2017-08-26 ==
LOC: PUL.REHAB 07:08
PROVIDERS: ATTEND General Practice
DX: J44.9 Chronic obstructive pulmonary disease, unspecified (principal)

== ENCOUNTER 2017-12-29 16:22 | Outpatient (CLI) | END 2017-12-29 16:23 | disposition home or self-care (01) | LOC: FCC-LAB 16:22 | PROVIDERS: ATTEND General Practice | DX: N40.0 Benign prostatic hyperplasia without lower urinary tract symptoms (principal); I10 Essential (primary) hypertension; E78.5 Hyperlipidemia, unspecified; I63.9 Cerebral infarction, unspecified; E11.9 Type 2 diabetes mellitus without complications; J44.9 Chronic obstructive pulmonary disease, unspecified; I20.9 Angina pectoris, unspecified; F17.200 Nicotine dependence, unspecified, uncomplicated; Z79.899 Other long term (current) drug therapy | CPT/HCPCS: 36415; 80053; 80061; 81001; 85025 ==

== ENCOUNTER 2018-08-02 13:14 | Outpatient (POV) | END 2018-08-02 17:00 | LOC: OUTPT 13:14 | PROVIDERS: ATTEND Otolaryngology | DX: H91.90 Unspecified hearing loss, unspecified ear (principal) | CPT/HCPCS: 92557; 92567 ==

== ENCOUNTER 2019-01-25 16:00 | Outpatient (CLI) | END 2019-01-25 16:01 | disposition home or self-care (01) | LOC: RHC-LAB 16:00 | PROVIDERS: ATTEND General Practice | DX: E78.5 Hyperlipidemia, unspecified (principal); I10 Essential (primary) hypertension; E11.9 Type 2 diabetes mellitus without complications; J44.9 Chronic obstructive pulmonary disease, unspecified; F17.200 Nicotine dependence, unspecified, uncomplicated; Z79.899 Other long term (current) drug therapy | CPT/HCPCS: 36415; 80053; 80061; 81001; 85025 ==

== ENCOUNTER 2019-05-24 07:58 | Outpatient (CLI) | END 2019-05-24 07:59 | disposition home or self-care (01) | LOC: RHC-LAB 07:58 | PROVIDERS: ATTEND General Practice | DX: E78.5 Hyperlipidemia, unspecified (principal); I10 Essential (primary) hypertension; E11.9 Type 2 diabetes mellitus without complications; F17.200 Nicotine dependence, unspecified, uncomplicated; J44.9 Chronic obstructive pulmonary disease, unspecified; Z79.899 Other long term (current) drug therapy | CPT/HCPCS: 36415; 80053; 80061; 81001; 85025 ==

== ENCOUNTER 2019-05-30 11:48 | Outpatient (CLI) | END 2019-05-30 11:49 | disposition home or self-care (01) | LOC: RHC-LAB 11:48 | PROVIDERS: ATTEND General Practice | DX: E11.9 Type 2 diabetes mellitus without complications (principal) | CPT/HCPCS: 36415; 83037 ==

== ENCOUNTER 2024-08-22 23:19 | Inpatient (IN) ==
[2024-08-22 23:38] VITALS: BMI 17.8
--- NOTE | 2024-08-22 23:51 | ED.PDOC ---
General ED Provider: Dr. MAX CHOUDHURY MD Chief Complaint: Multiple Trauma Stated Complaint: 73-year-old male history of hyperlipidemia, BPH, diabetes, COPD, CVA, presenting to the emergency department status post fall. The details of which are unknown. Patient has reported right-sided chest posterior back pain where he fell. He is having difficulty getting full breaths due to the fall. He is unable to provide too much history due to his distress. He denies any extremity pain. Does not have abdominal pain or headache. Time Seen by Provider: 08/22/24 23:29 Information Source: Patient Primary Care Provider: RUSSEL STEINER MD Nursing and Triage Documentation Reviewed and Agree: Yes What is Opioid Naive?: *Opioid Naive implies the patient is not already taking opioids or not chronically receiving opioids on a daily basis. *PRN dosing is not "usually" associated with tolerance. *Patients are at higher risk of over-sedation and aspiration. What is Opioid Tolerant?: *Opioid Tolerance implies less than the expected response to an opioid. *Acquired tolerance is defined by the patient taking 60mg of oral morphine daily (or equianalgesic dose of another opioid) for 1 week or more. *Often associated with chronic pain. *May take more than usual dose to achieve desired pain control. Review of Systems Review Of Systems Constitutional: Denies Chills or Fever Respiratory: Reports Shortness of Breath; Denies Cough or Wheezing Cardiac: Reports Chest pain; Denies Edema [facility] Medical History Encounter for Medicare annual wellness exam Z00.00 - Encounter for general adult medical examination without abnormal findings (ICD-10) Weight loss, non-intentional R63.4 - Abnormal weight loss (ICD-10) Abnormal stress test R94.39 - Abnormal result of other cardiovascular function study (ICD-10) Hypertension I10 - Essential (primary) hypertension (ICD-10) Contact with and (suspected) exposure to environmental tobacco smoke (acute) (chronic) Z77.22 - Contact with and (suspected) exposure to environmental tobacco smoke (acute) (chronic) (ICD-10) PAD (peripheral artery disease) I73.9 - Peripheral vascular disease, unspecified (ICD-10) Subconjunctival hemorrhage of right eye H11.31 - Conjunctival hemorrhage, right eye (ICD-10) Olecranon bursitis M70.20 - Olecranon bursitis, unspecified elbow (ICD-10) Family History (Updated 08/23/24 @ 04:13 by DIRK RODRIGUES RN) Other No known health problems Social History (Updated 08/23/24 @ 04:13 by DIRK RODRIGUES RN) Smoking and tobacco status: Current every day smoker Tobacco type: cigarettes Alcohol intake: current Alcohol intake frequency: 0-2 drinks per day Alcohol type: beer Substance use type: does not use Special nolberto needs: No Agree to transfusion: Yes Adopted: No Caregiver/support person: No Foster care: No Household members: spouse Housing: house Marital status: M Lives independently: Yes Daycare: no daycare Number of children: 2 service: Yes status: retired FDC: No Current occupational status: retired History of recent travel: No Do you think of yourself as: straight/heterosexual Current gender identity: male Seatbelt use: always Drives intoxicated or rides with intoxicated 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 Current diet type/program: regular Water heater temperature set < 120 degrees: Yes Working smoke detector in home: No Fire extinguisher in home: No Carbon monoxide detector in home: No Surgical History H/O vasectomy Z98.52 - Vasectomy status (ICD-10) Physical Exam Physical Exam Appearance: Reports Ill-appearing Pain Distress: Moderate Eyes: Reports VERNON, EOMI and Conjunctiva clear ENT: Reports Ears normal, Nose normal and Dry mucosa Neck: Supple Respiratory: Reports Airway patent and Breath sounds clear; Denies Rhonchi or Wheezes Cardiovascular: Reports RRR and Other (ttp r chest wall and post) GI/: Reports Soft and Nontender Musculoskeletal: Reports Normal strength and ROM intact Skin: Reports Warm Neurological: Reports Sensation intact and Motor intact Psychiatric: Reports Affect appropriate Interpretation EKG Interpretation EKG Interpretation By: ED Physician Time of EKG #1: 03:04 Rate: Normal Rhythm: Sinus [place]: NL ST Segment: Normal Critical Care Note Critical Care Note Total Critical Care Time (mins): 35 Comments: Patient required frequent reevaluations, oxygen to fix hypoxic respiratory failure likely due to COPD exacerbation. Read medication. Course Course 08/23/24 05:06 08/23/24 05:06 Orders, Labs, Meds: Lab Review 08/22/24 08/22/24 08/23/24 23:35 23:36 00:29 WBC 11.81 H RBC 4.65 L Hgb 13.6 L Hct 42.0 MCV 90.3 MCH 29.2 MCHC 32.4 RDW Coeff of Katie 13.1 Plt Count 256 Immature Gran % (Auto) 0.3 Neut % (Auto) 76.4 H Lymph % (Auto) 14.0 [place] % (Auto) 8.6 Eos % (Auto) 0.6 Baso % (Auto) 0.1 Neut # (Auto) 9.0 H Lymph # (Auto) 1.7 [place] # (Auto) 1.0 Eos # (Auto) 0.1 Baso # (Auto) 0.0 Immature Gran # (Auto) 0.0 PT 10.2 INR 0.98 VBG pH VBG pCO2 VBG pO2 VBG HCO3 VBG O2 Saturation Sodium 134.1 L Potassium 3.54 Chloride 94.5 L Carbon Dioxide 27.4 Anion Gap 15.74 BUN 11.3 Creatinine 0.96 Estimated GFR (MDRD) 76.00 BUN/Creatinine Ratio 11.77 Glucose 231.4 H Calcium 9.53 Total Bilirubin 1.49 H AST 24.2 ALT 12.5 Alkaline Phosphatase 92.0 Troponin I < 0.012 Total Protein 7.76 Albumin 4.37 Globulin 3.39 Albumin/Globulin Ratio 1.28 SARS CoV-2 RNA Rapid MING 08/23/24 08/23/24 00:39 01:15 WBC RBC Hgb Hct MCV MCH MCHC RDW Coeff of Katie Plt Count Immature Gran % (Auto) Neut % (Auto) Lymph % (Auto) [place] % (Auto) Eos % (Auto) Baso % (Auto) Neut # (Auto) Lymph # (Auto) [place] # (Auto) Eos # (Auto) Baso # (Auto) Immature Gran # (Auto) PT INR VBG pH 7.39 VBG pCO2 46 VBG pO2 43 H VBG HCO3 27.8 H VBG O2 Saturation 78.1 Sodium Potassium Chloride Carbon Dioxide Anion Gap BUN Creatinine Estimated GFR (MDRD) BUN/Creatinine Ratio Glucose Calcium Total Bilirubin AST ALT Alkaline Phosphatase Troponin I Total Protein Albumin Globulin Albumin/Globulin Ratio SARS CoV-2 RNA Rapid MING Negative Orders Category Date Time Status ADMIT PATIENT INPATIENT .TO [facility] (MONITORED BED) ADMISSION 08/23/24 03:08 Active EKG-(ED ONLY) Stat CARDIO 08/23/24 02:56 Completed NEBULIZER TREATMENT Stat CARDIO 08/23/24 01:00 Completed VBG DRAW REQUEST Stat CARDIO 08/23/24 01:33 Completed BLOOD GLUCOSE MONITORING (MED/SURG) ACHS2 CARE 08/23/24 03:08 Active TELEMETRY MONITORING TELE CARE 08/23/24 03:08 Active VITAL SIGNS Q4HR CARE 08/23/24 03:08 Active VTE PREVENTION .SCD 24 Hours CARE 08/23/24 03:08 Active CBC W/ AUTO DIFF Stat LAB 08/22/24 23:36 Completed CBC W/ AUTO DIFF Timed LAB 08/23/24 05:06 Completed CMP [COMPREHENSIVE METABOLIC PANEL] Stat LAB 08/22/24 23:36 Completed COMPREHENSIVE METABOLIC PANEL Timed LAB 08/23/24 05:06 Completed INR [PT WITH INR] Stat LAB 08/22/24 23:35 Completed MAGNESIUM Timed LAB 08/23/24 05:06 Completed PROBNP ED [NT-PROBNP(ED)] Stat LAB 08/23/24 Completed SARS COV-2 RNA RAPID MING Stat LAB 08/23/24 01:15 Completed TROPONIN I Stat LAB 08/23/24 00:29 Completed VBG [VENOUS BLOOD GAS] Stat LAB 08/23/24 00:39 Completed Acetaminophen [Tylenol] Meds 08/22/24 23:35 Discontinued 1,000 mg PO ONCE ONE Acetaminophen [Tylenol] Meds 08/23/24 03:08 Active 650 mg PO Q4H PRN Azithromycin Inj [Zithromax] 500 mg Meds 08/23/24 00:48 Discontinued 0.9 % Sodium Chloride [Sodium Chloride] 250 ml IV ONCE Ipratropium/Albuterol Neb [Duoneb] Meds 08/23/24 00:29 Discontinued 3 ml NEB ONCE ONE Ipratropium/Albuterol Neb [Duoneb] Meds 08/23/24 00:48 Discontinued 3 ml NEB ONCE ONE Ipratropium/Albuterol Neb [Duoneb] Meds 08/23/24 00:48 Discontinued 3 ml NEB ONCE ONE Lidocaine Patch [Lidoderm 5 % Patch] Meds 08/22/24 23:35 Discontinued 1 patch TP ONCE ONE Methylprednisolone Sod Succ/Pf [Solu-Medrol 40 mg] Meds 08/23/24 00:29 Discontinued 60 mg IVP ONCE ONE Morphine Sulfate [Morphine 2 mg/ml Syringe] Meds 08/22/24 23:47 Discontinued 2 mg IVP ONCE ONE Morphine Sulfate [Morphine 2 mg/ml Syringe] Meds 08/23/24 01:07 Discontinued 2 mg IVP ONCE ONE Ondansetron HCl/Pf [Zofran 4 mg/2 ml] Meds 08/23/24 00:11 Discontinued 4 mg IVP ONCE ONE CHEST, 2 VIEWS PA & LAT Stat RADS 08/22/24 23:[address] ABDOMEN W/O CONTRAST Stat RADS 08/22/24 23:[address] CERVICAL SPINE W/O CONTRAST Stat RADS 08/22/24 23:[address] CHEST W/O CONTRAST Stat RADS 08/22/24 23:[address] HEAD W/O CONTRAST Stat RADS 08/22/24 23:35 Completed Medications Generic Name Dose Route Start Last Admin Trade Name Freq PRN Reason Stop Dose Admin Acetaminophen 650 mg 08/23/24 03:08 Acetaminophen 325 Mg Tablet PO Q4H PRN Mild Pain Albuterol/Ipratropium 3 ml 08/23/24 06:00 08/23/24 05:37 Ipratropium/Albuterol Vial.Neb NEB 3 ml RTQ4H YARED Administration Metformin HCl 1,000 mg 08/23/24 07:30 Metformin Hcl 500 Mg Tablet PO BIDWM2 YARED Oxycodone HCl 5 mg 08/23/24 03:12 Oxycodone Hcl 5 Mg Tablet PO Q6H PRN severe pain Discontinued Medications Generic Name Dose Route Start Last Admin Trade Name Freq PRN Reason Stop Dose Admin Acetaminophen 1,000 mg 08/22/24 23:35 08/23/24 00:29 Acetaminophen 500 Mg Tablet PO 08/22/24 23:36 1,000 mg ONCE ONE Administration Albuterol/Ipratropium 3 ml 08/23/24 00:29 08/23/24 00:55 Ipratropium/Albuterol Vial.Neb NEB 08/23/24 00:30 3 ml ONCE ONE Administration Albuterol/Ipratropium 3 ml 08/23/24 00:48 08/23/24 01:07 Ipratropium/Albuterol Vial.Neb NEB 08/23/24 00:49 3 ml ONCE ONE Administration Albuterol/Ipratropium 3 ml 08/23/24 00:48 08/23/24 01:17 Ipratropium/Albuterol Vial.Neb NEB 08/23/24 00:49 3 ml ONCE ONE Administration Azithromycin 500 mg/ Sodium 250 mls @ 250 mls/hr 08/23/24 00:48 08/23/24 01:05 Chloride IV 08/23/24 01:47 250 mls/hr ONCE ONE Administration Ibuprofen 400 mg 08/23/24 03:15 08/23/24 04:03 Ibuprofen 400 Mg Tablet PO 08/23/24 03:16 400 mg ONCE ONE Administration Lidocaine 1 patch 08/22/24 23:35 08/23/24 00:29 Lidocaine 5% Patch TP 08/22/24 23:36 1 patch ONCE ONE Administration Methylprednisolone Sodium Succinate 60 mg 08/23/24 00:29 08/23/24 00:46 Methylprednisolone Sod Succ/Pf 40 Mg/Ml Vial IVP 08/23/24 00:30 60 mg ONCE ONE Administration Morphine Sulfate 2 mg 08/22/24 23:47 08/23/24 00:31 Morphine Sulfate 2 Mg/Ml Syringe IVP 08/22/24 23:48 2 mg ONCE ONE Administration Morphine Sulfate 2 mg 08/23/24 01:07 08/23/24 01:10 Morphine Sulfate 2 Mg/Ml Syringe IVP 08/23/24 01:08 2 mg ONCE ONE Administration Ondansetron HCl 4 mg 08/23/24 00:11 08/23/24 00:29 Ondansetron Hcl/Pf 4 Mg/2 Ml Sdv IVP 08/23/24 00:12 4 mg ONCE ONE Administration Vital Signs: Temp Pulse Resp BP Pulse Ox 08/22/24 23:21 97.9 F 112 H 30 H 158/110 H 97 Discharge Plan Discharge Patient Disposition: ADMITTED INPATIENT Discharge Problem: Shortness of breath, Hypoxia Chronic obstructive pulmonary disease Qualifiers: COPD type: COPD with acute exacerbation Qualified Code(s): J44.1 - Chronic obstructive pulmonary disease with (acute) exacerbation Did you review [place] [employer] for ALL controlled substances?: Not Applicable ED Provider: MAX CHOUDHURY Condition: Stable Physician Progress Note: 73-year-old male history of COPD, diabetes, hypertension, presenting status post fall patient is unable to give the details. He is having difficulty getting up. He is having right-sided chest/flank pain. He is not reporting any other pain. He is tachycardic tachypneic however satting well. Difficult to appreciate if he has diminished breath sounds. Will get chest x-ray possible pneumothorax if visible will place a chest tube will also get CT head C-spine chest abdomen pelvis pain control Went to x-ray to evaluate patient to make sure he was doing okay. He seems like his pain is improved however he did vomit. I did not see any obvious pneumothorax on the chest x-ray however it was sideways when I looked at it there. I reevaluated him and he is significantly wheezy bilaterally. Concern for COPD exacerbation possibly this will cause fall, will give Solu-Medrol and breathing treatment. No obvious pneumothorax on the CT chest. Patient scans were negative read is negative for trauma. Troponin negative, lab work unremarkable, not hypercarbic. Patient has improved with the medications and is stable on 2 L. Heart rate currently 88 satting 88%, respiratory rate 18 blood pressure 122/80. I would like to admit the patient for COPD exacerbation. I did talk to the hospitalist will place bridging orders.
[2024-08-23] MEDS: TYLENOL PO ONE (00:29)
[2024-08-23] MEDS: LIDODERM 5 % PATCH TP ONE (00:29)
[2024-08-23] MEDS: ZOFRAN SDV IVP ONE (00:29)
[2024-08-23] MEDS: MORPHINE 2 MG/ML SYRINGE IVP ONE ×2 (00:31→01:10)
--- NOTE | 2024-08-23 00:39 | CT ---
EXAM: CT OF THE CERVICAL SPINE WITHOUT CONTRAST TECHNIQUE: Noncontrast CT of the cervical spine performed with multiplanar reformats. HISTORY: Trauma. COMPARISON: None. FINDINGS: No acute fracture. Trace degenerative retrolisthesis at C3-4. Advanced multilevel degenerative spondylosis. Multilevel high-grade spinal canal or neural foraminal stenosis. Multifocal atherosclerotic calcifications. Severe emphysema. Calcified granuloma right upper lobe. Subcutaneous inclusion cyst in the posterior neck. No apical pneumothorax. IMPRESSION: No fracture of the cervical spine. All CT scans are performed using dose optimization techniques as appropriate to the performed exam an d include at least one of the following: Automated exposure control, adjustment of the mA and/or kV according t o size, and the use of iterative reconstruction technique.
--- NOTE | 2024-08-23 00:39 | CT ---
EXAM: CT CHEST WITHOUT CONTRAST History: Trauma Technique: [address] chest without contrast FINDINGS: Lung windows show severe emphysema. No pleural fluid or pneumothorax. Atherosclerotic ca lcification of the aorta with maximum ascending diameter 3.9 cm. No pathologic lymph node enlargemen t. No acute chest wall abnormality. See abdominal CT for upper abdomen. Impression: 1. No acute post-traumatic change of the chest 2. Severe emphysema All CT scans are performed using dose optimization techniques as appropriate to the performed exam an d include at least one of the following: Automated exposure control, adjustment of the mA and/or kV according t o size, and the use of iterative reconstruction technique.
[2024-08-23 00:43] LABS: BASOPHILS % (AUTO) 0.1 % (0.0-3.0); EOSINOPHILS # (AUTO) 0.1 K/ul (0.0-0.7); EOSINOPHILS % (AUTO) 0.6 % (0.0-7.0); HEMOGLOBIN 13.6 g/dl (14.0-18.0); IMMATURE GRANULOCYTE % (AUTO) 0.3 % (0.0-5.0); LYMPHOCYTES # (AUTO) 1.7 K/uL (0.60-3.4); MEAN CORPUSCULAR HEMOGLOBIN 29.2 pg (27.0-31.0); MEAN CORPUSCULAR HGB CONC 32.4 (31.8-35.4); MEAN CORPUSCULAR VOLUME 90.3 fl (80.0-94.0); MONOCYTES % (AUTO) 8.6 (0-10); NEUTROPHILS % (AUTO) 76.4 % (42.2-75.2); PLATELET COUNT 256 10^3/uL (140-440); RDW COEFFICIENT OF VARIATION 13.1 % (11.6-14.8); RED BLOOD COUNT 4.65 10^6/ul (4.70-6.10); WHITE BLOOD COUNT 11.81 K/ul (4.2-10.2)
--- NOTE | 2024-08-23 00:45 | CT ---
EXAM: CT ABDOMEN WITHOUT CONTRAST History: Trauma Technique: 2.[address] abdomen without contrast. The exam includes through the acetabular roofs bilat erally. FINDINGS: Emphysema in the otherwise clear lung bases. No significant liver abnormality. The adren als, pancreas and spleen are unremarkable. The stomach and hiatus are unremarkable.The gallbladder a ppears normal. Atherosclerotic calcification of the aorta with maximum infrarenal aorta diameter 3.1 cm. Nonobstructing calcifications versus vascular calcifications both kidneys. No hydronephrosis, inflammation or hydroureter. No ascites. The appendix is normal. Bowel loops demonstrate normal ca liber. No inflamatory change seen in the mesentery or retroperitoneum. Multiple sigmoid colonic div erticula. No acute findings of the skeleton. Chronic L5 pars interarticularis defects. Impression: 1. No evidence of injury to solid or hollow intra-abdominal viscera by noncontrast CT 2. Possible nonobstructing nephrolithiasis versus vascular calcifications 3. Abdominal aortic aneurysm 3.9 cm 4. No acute findings All CT scans are performed using dose optimization techniques as appropriate to the performed exam an d include at least one of the following: Automated exposure control, adjustment of the mA and/or kV according t o size, and the use of iterative reconstruction technique.
[2024-08-23] MEDS: SOLU-MEDROL 40 MG IVP ONE (00:46)
--- NOTE | 2024-08-23 00:46 | CT ---
EXAM: CT HEAD WITHOUT CONTRAST TECHNIQUE: Noncontrast CT of the head with multiple reformats. HISTORY: Trauma. COMPARISON: Brain MRI 02/05/2017. FINDINGS: No acute intracranial hemorrhage. Old lacunar infarcts in the basal ganglia and thalami bilaterally, left vaughn, and bilateral cerebellu m. Severe chronic microvascular changes of the white matter. Moderate brain volume loss. No brain herniation. Patent basilar cisterns. Partially empty sella. Ventricles are proportional to brain volume. No acute osseous abnormality. Lens replacement of the left globe. Atherosclerotic calcifications of the carotid siphons. Scattered dental caries and periapical lucencies. Mastoid air cells and paranasal sinuses are predominately clear. IMPRESSION: No acute intracranial abnormality. Old lacunar infarcts in the basal ganglia, thalami, and cerebellum bilaterally and in the left vaughn. Advanced senescent changes. All CT scans are performed using dose optimization techniques as appropriate to the performed exam an d include at least one of the following: Automated exposure control, adjustment of the mA and/or kV according t o size, and the use of iterative reconstruction technique.
--- NOTE | 2024-08-23 00:47 | DI ---
EXAM: CHEST TWO VIEWS HISTORY: Trauma FINDINGS: Normal cardiac and mediastinal contours. Normal pulmonary vasculature. Lungs are clear. The lungs are hyperexpanded. No significant abnormality of the bony thorax. IMPRESSION: Emphysema No acute cardiopulmonary disease
[2024-08-23 00:50] LABS: VBG HCO3 27.8 (22-26); VBG OXYGEN SATURATION 78.1 (60-80); VBG PH 7.39 (7.30-7.40)
[2024-08-23] MEDS: DUONEB NEB ONE ×3 (00:55→01:17)
[2024-08-23 00:56] LABS: PROTHROMBIN TIME 10.2 SEC (9.3-11.0)
[2024-08-23 00:56] LABS: ALANINE AMINOTRANSFERASE 12.5 U/L (0-50); ALBUMIN 4.37 g/dL (3.5-5.0); ASPARTATE AMINO TRANSFERASE 24.2 U/L (17-59); BILIRUBIN,TOTAL 1.49 mg/dL (0.2-1.3); BLOOD UREA NITROGEN 11.3 mg/dL (9-20); CALCIUM 9.53 mg/dL (8.4-10.2); CARBON DIOXIDE 27.4 mmol/L (22-30.0); CHLORIDE 94.5 mmol/L (98-107); CREATININE 0.96 mg/dL (0.60-1.10); GLUCOSE 231.4 mg/dL (74-106); POTASSIUM 3.54 mmol/L (3.5-5.1); SODIUM 134.1 mmol/L (134.5-145); TOTAL PROTEIN 7.76 g/dL (6.3-8.2)
[2024-08-23] MEDS: ZITHROMAX 500 MG in SODIUM CHLORIDE 250 ML IV ONE (01:05)
[2024-08-23 01:46] LABS: SARS COV-2 RNA RAPID NAAT NEGATIVE (NEGATIVE)
[2024-08-23] MEDS ORDERED: TYLENOL PO PRN (03:08)
[2024-08-23] MEDS: MOTRIN PO ONE (04:03)
[2024-08-23 05:31] LABS: HEMATOCRIT 38.7 % (42.0-52.0); HEMOGLOBIN 12.4 g/dl (14.0-18.0); IMMATURE GRANULOCYTE % (AUTO) 0.2 % (0.0-5.0); LYMPHOCYTES # (AUTO) 0.3 K/uL (0.60-3.4); MEAN CORPUSCULAR HEMOGLOBIN 28.8 pg (27.0-31.0); MONOCYTES # (AUTO) 0.1 K/uL (0.4-2.0); MONOCYTES % (AUTO) 1.1 (0-10); NEUTROPHILS # (AUTO) 7.8 K/ul (2.0-6.9); NEUTROPHILS % (AUTO) 94.7 % (42.2-75.2); PLATELET COUNT 232 10^3/uL (140-440); RDW COEFFICIENT OF VARIATION 13.1 % (11.6-14.8); WHITE BLOOD COUNT 8.27 K/ul (4.2-10.2)
[2024-08-23] MEDS: DUONEB NEB SCH (05:37)
[2024-08-23 05:41] LABS: ALBUMIN 3.8 g/dL (3.5-5.0); BILIRUBIN,TOTAL 1.1 mg/dL (0.2-1.3); CALCIUM 8.9 mg/dL (8.4-10.2); CREATININE 0.9 mg/dL (0.60-1.10); MAGNESIUM 1.7 mg/dL (1.6-2.3); POTASSIUM 3.4 mmol/L (3.5-5.1); TOTAL PROTEIN 6.8 g/dL (6.3-8.2)
[2024-08-23] MEDS: GLUCOPHAGE PO SCH (08:31)
[2024-08-23] MEDS ORDERED: NON-FORMULARY MEDICATION (Budesonide-Glycopyr-Formoterol [Breztri Aerosphere] 160-9-4.8 mc IH SCH ×2 (09:00)
[2024-08-23] MEDS: SOLU-MEDROL 40 MG IVP SCH (09:04)
[2024-08-23] MEDS: SYMBICORT 160-4.5 MCG INHALER IH SCH (09:04)
[2024-08-23] MEDS: LIDODERM 5 % PATCH TP PRN (09:05)
[2024-08-23] MEDS: SPIRIVA IH SCH (09:05)
[2024-08-23] MEDS: PLAVIX PO SCH (09:09)
[2024-08-23] MEDS: JANUVIA PO SCH (09:09)
[2024-08-23] MEDS: CRESTOR PO SCH (09:09)
[2024-08-23] MEDS: FLOMAX PO SCH (09:09)
[2024-08-23] MEDS: DITROPAN XL PO SCH (09:10)
[2024-08-23 09:40] LABS: BILIRUBIN,URINE Negative (NEGATIVE); CLARITY,URINE Clear (CLEAR); COLOR,URINE Yellow (YELLOW); KETONES,URINE Trace (NEGATIVE); LEUKOCYTE ESTERASE ,URINE Negative (NEGATIVE); NITRITE,URINE Negative (NEGATIVE); PH,URINE 5.5 (5-9); PROTEIN,URINE 1+ (NEGATIVE); URINE, BLOOD Trace-lysed (NEGATIVE); UROBILINOGEN,URINE 0.2 (0.2)
[2024-08-23 09:43] LABS: GLUCOSE, URINE (UA) 3+ (NEGATIVE)
[2024-08-23 09:46] LABS: BACTERIA,URINE TRACE (NOT PRESENT); RENAL EPITHELIAL CELLS,URINE 0-2 (NOT PRESENT); SQUAMOUS EPITHELIAL CELL,UR 0-2 (0-5); TRANSITIONAL EPI CELLS,URINE 0-2 (NOT PRESENT); URINE RBC, MICROSCOPIC 0-2 (0-2); URINE WBC, MICROSCOPIC 0-2 (0-2)
--- NOTE | 2024-08-23 11:43 | PCM ---
Date of Service Date Seen by Provider: 08/23/24 Time Seen by Provider: 08:30 Admit Day/Time Admission Date: 08/23/24 Admission Time: 03:08 Reason for Admission Chief Complaint: COPD EXACERBATION, HYPOXIA Hospital Provider Hospital Provider: RENETTA EARL PA-C, [facility] [place] Primary Care Physician: RUSSEL STEINER MD History of Present Illness History of Present Illness: Patient is a 73 year old male from home with pmhx of CVA, COPD, BPH, hyperlipidemia, diabetes type 2, hypertension who presented to the ER for multiple falls and right-sided rib pain. He was seen by his PCP on Wednesday for a fall and then fell again last night hurting his right side. Family had concerns about possible broken ribs. He had multiple imaging modalities done in the ER including CT head, CT cervical spine, CT chest, CT abdomen pelvis without any acute findings. He was found to be hypoxic in the 80s and felt to be in a COPD exacerbation. Concern that this was leading to his falls. He was given Solu- Medrol, azithromycin, and DuoNebs. He was placed on 2 L. He was given IV pain medication as well. And he was admitted to [facility] for further treatment. is at bedside today and states that he has had 3 falls in the last 4 days. He was reluctant to come to the hospital. She denies that he has had any worsening confusion, just states that he tends to get angry easily. She states that he has been eating and drinking fine at home. He normally does not use an assistive device. He does not usually require oxygen. He does continue to smoke. Patient is able to answer most questions appropriately but is very hard of hearing. He only complains of right rib pain. Case Discussed With Case Discussed With: Patient's case was discussed with the ER Physicians, Dr. Aguilar. [facility] Medical History Encounter for Medicare annual wellness exam Z00.00 - Encounter for general adult medical examination without abnormal findings (ICD-10) Weight loss, non-intentional R63.4 - Abnormal weight loss (ICD-10) Abnormal stress test R94.39 - Abnormal result of other cardiovascular function study (ICD-10) Hypertension I10 - Essential (primary) hypertension (ICD-10) Contact with and (suspected) exposure to environmental tobacco smoke (acute) (chronic) Z77.22 - Contact with and (suspected) exposure to environmental tobacco smoke (acute) (chronic) (ICD-10) PAD (peripheral artery disease) I73.9 - Peripheral vascular disease, unspecified (ICD-10) Subconjunctival hemorrhage of right eye H11.31 - Conjunctival hemorrhage, right eye (ICD-10) Olecranon bursitis M70.20 - Olecranon bursitis, unspecified elbow (ICD-10) Surgical History H/O vasectomy Z98.52 - Vasectomy status (ICD-10) Family History Other No known health problems Social History Smoking and tobacco status: Current every day smoker Tobacco type: cigarettes Alcohol intake: current Alcohol intake frequency: 0-2 drinks per day Alcohol type: beer Substance use type: does not use Special nolberto needs: No Agree to transfusion: Yes Adopted: No Caregiver/support person: No Foster care: No Household members: spouse Housing: house Marital status: M Lives independently: Yes Daycare: no daycare Number of children: 2 service: Yes status: retired custodial: No Current occupational status: retired History of recent travel: No Do you think of yourself as: straight/heterosexual Current gender identity: male Seatbelt use: always Drives intoxicated or rides with intoxicated refrigerated company driver: No Current diet type/program: regular Water heater temperature set < 120 degrees: Yes Working smoke detector in home: No Fire extinguisher in home: No Carbon monoxide detector in home: No Allergies Allergies Allergy/AdvReac Type Severity Reaction Status Date / Time No Known Allergies Allergy Verified 08/22/24 23:38 Current Medications Home Medications clopidogrel 75 mg tablet 75 mg PO QDAY #90 tabs 09/13/23 [Rx Confirmed 08/22/24 Last Taken Unknown] hydrochlorothiazide 12.5 mg capsule 12.5 mg PO QDAY #90 caps 02/14/24 [Rx Confirmed 08/22/24 Last Taken Unknown] tamsulosin 0.4 mg capsule 0.4 mg PO DAILY #90 caps 02/14/24 [Rx Confirmed 08/22/24 Last Taken Unknown] losartan 50 mg tablet See Rx Instructions .Route .COMPLEX #60 tabs 03/13/24 [Rx Confirmed 08/22/24 Last Taken Unknown] amlodipine 5 mg tablet 5 mg PO DAILY #90 tabs 04/26/24 [Rx Confirmed 08/22/24 Last Taken Unknown] metformin 1,000 mg tablet See Rx Instructions .Route .COMPLEX #60 tabs 05/01/24 [Rx Confirmed 08/22/24 Last Taken Unknown] sitagliptin phosphate 100 mg tablet (Januvia) 100 mg PO QDAY #30 tabs 05/23/24 [Rx Confirmed 08/22/24 Last Taken Unknown] oxybutynin chloride 10 mg tablet,extended release 24 hr 10 mg PO DAILY #30 tabs 07/13/24 [Rx Confirmed 08/22/24 Last Taken Unknown] rosuvastatin 20 mg tablet See Rx Instructions .Route .COMPLEX #30 tabs 08/07/24 [Rx Confirmed 08/22/24 Last Taken Unknown] budesonide 160 mcg-glycopyr 9 mcg-formot 4.8 mcg/actuation HFA inhaler (Breztri Aerosphere) 2 inh inhalation QAM #10.7 grams 08/21/24 [Rx Confirmed 08/22/24 Last Taken Unknown] ipratropium 0.5 mg-albuterol 3 mg (2.5 mg base)/3 mL nebulization soln 3 ml inhalation QID 30 days #180 mL 08/21/24 [Rx Confirmed 08/22/24 Last Taken Unknown] potassium chloride 10 mEq tablet,extended release 10 meq PO QDAY #30 tabs 08/21/24 [Rx Confirmed 08/22/24 Last Taken Unknown] Home Acetaminophen (Acetaminophen 325 Mg Tablet) 650 mg PO Q4H PRN PRN Reason: Mild Pain Albuterol/Ipratropium (Ipratropium/Albuterol Vial.Neb) 3 ml NEB RTQ4H YARED Last Admin: 08/23/24 13:38 Dose: 3 ml Azithromycin (Azithromycin 250 Mg Tablet) 500 mg PO BEDTIME YARED Stop: 08/26/24 20:59 Budesonide/Formoterol Fumarate (Budesonide/Formoterol Fumarate 160/4.5 Mcg Inhaler) 2 puff IH BID [facility] Last Admin: 08/23/24 09:04 Dose: 2 puff Clopidogrel Bisulfate (Clopidogrel Bisulfate 75 Mg Tablet) 75 mg PO DAILY [facility] Last Admin: 08/23/24 09:09 Dose: 75 mg Guaifenesin/Dextromethorphan (Guaifenesin/Dextromethorphan 200/20 Mg/10 Ml Cup) 10 ml PO Q6HR PRN PRN Reason: Cough Last Admin: 08/23/24 12:04 Dose: 10 ml Insulin Human Lispro (Insulin Lispro 100 Unit/Ml (10 Ml Vial)) 0 unit SUBCUT PRN PRN; Protocol PRN Reason: Hyperglycemia Last Admin: 08/23/24 17:09 Dose: 5 unit Lidocaine (Lidocaine 5% Patch) 1 patch TP DAILY PRN PRN Reason: muscle pain Last Admin: 08/23/24 09:05 Dose: 1 patch Metformin HCl (Metformin Hcl 500 Mg Tablet) 1,000 mg PO BIDWM2 [facility] Last Admin: 08/23/24 08:31 Dose: 1,000 mg Methylprednisolone Sodium Succinate (Methylprednisolone Sod Succ/Pf 40 Mg/Ml Vial) 40 mg IVP Q8HR [facility] Last Admin: 08/23/24 13:31 Dose: 40 mg Oxybutynin Chloride (Oxybutynin Chloride 5 Mg Tab.Er.24) 10 mg PO DAILY [facility] Last Admin: 08/23/24 09:10 Dose: 10 mg Oxycodone HCl (Oxycodone Hcl 5 Mg Tablet) 5 mg PO Q6H PRN PRN Reason: severe pain Rosuvastatin Calcium (Rosuvastatin Calcium 10 Mg Tablet) 20 mg PO DAILY [facility] Last Admin: 08/23/24 09:09 Dose: 20 mg Sitagliptin Phosphate (Sitagliptin Phosphate 50 Mg Tablet) 100 mg PO DAILY [facility] Last Admin: 08/23/24 09:09 Dose: 100 mg Sodium Chloride (0.9% Sodium Chloride 10 Ml Disp.Syrin) 1 syr IVF Q8HR [facility] Sodium Chloride (0.9% Sodium Chloride 10 Ml Disp.Syrin) 1 syr IVF PRN PRN PRN Reason: Maintain IV Patency Tamsulosin HCl (Tamsulosin Hcl 0.4 Mg Cap.Er.24h) 0.4 mg PO DAILY [facility] Last Admin: 08/23/24 09:09 Dose: 0.4 mg Tiotropium [place] (Tiotropium [place] 18 Mcg Cap.W.Dev) 1 cap IH DAILY YARED Last Admin: 08/23/24 09:05 Dose: 1 cap Discontinued Medications Acetaminophen (Acetaminophen 500 Mg Tablet) 1,000 mg PO ONCE ONE Stop: 08/22/24 23:36 Last Admin: 08/23/24 00:29 Dose: 1,000 mg Albuterol/Ipratropium (Ipratropium/Albuterol Vial.Neb) 3 ml NEB ONCE ONE Stop: 08/23/24 00:30 Last Admin: 08/23/24 00:55 Dose: 3 ml Albuterol/Ipratropium (Ipratropium/Albuterol Vial.Neb) 3 ml NEB ONCE ONE Stop: 08/23/24 00:49 Last Admin: 08/23/24 01:07 Dose: 3 ml Albuterol/Ipratropium (Ipratropium/Albuterol Vial.Neb) 3 ml NEB ONCE ONE Stop: 08/23/24 00:49 Last Admin: 08/23/24 01:17 Dose: 3 ml Azithromycin 500 mg/ Sodium (Chloride) 250 mls @ 250 mls/hr IV ONCE ONE Stop: 08/23/24 01:47 Last Admin: 08/23/24 01:05 Dose: 250 mls/hr Ibuprofen (Ibuprofen 400 Mg Tablet) 400 mg PO ONCE ONE Stop: 08/23/24 03:16 Last Admin: 08/23/24 04:03 Dose: 400 mg Insulin Human Lispro (Insulin Lispro 100 Unit/Ml (10 Ml Vial)) 8 unit SUBCUT ONCE ONE Stop: 08/23/24 11:54 Last Admin: 08/23/24 12:03 Dose: 8 unit Lidocaine (Lidocaine 5% Patch) 1 patch TP ONCE ONE Stop: 08/22/24 23:36 Last Admin: 08/23/24 00:29 Dose: 1 patch Methylprednisolone Sodium Succinate (Methylprednisolone Sod Succ/Pf 40 Mg/Ml Vial) 60 mg IVP ONCE ONE Stop: 08/23/24 00:30 Last Admin: 08/23/24 00:46 Dose: 60 mg Morphine Sulfate (Morphine Sulfate 2 Mg/Ml Syringe) 2 mg IVP ONCE ONE Stop: 08/22/24 23:48 Last Admin: 08/23/24 00:31 Dose: 2 mg Morphine Sulfate (Morphine Sulfate 2 Mg/Ml Syringe) 2 mg IVP ONCE ONE Stop: 08/23/24 01:08 Last Admin: 08/23/24 01:10 Dose: 2 mg Non-Formulary Medication (Fpdytqifcf-Owmqquam-Xboudhlcwt [Breztri Aerosphere]) 2 inh IH BID YARED Ondansetron HCl (Ondansetron Hcl/Pf 4 Mg/2 Ml Sdv) 4 mg IVP ONCE ONE Stop: 08/23/24 00:12 Last Admin: 08/23/24 00:29 Dose: 4 mg Opioid Naive vs. Tolerant Does Patient Take Opioids?: No Is Patient Opioid Naive?: Yes What is Opioid Naive?: *Opioid Naive implies the patient is not already taking opioids or not chronically receiving opioids on a daily basis. *PRN dosing is not "usually" associated with tolerance. *Patients are at higher risk of over-sedation and aspiration. Is Patient Opioid Tolerant?: No What is Opioid Tolerant?: *Opioid Tolerance implies less than the expected response to an opioid. *Acquired tolerance is defined by the patient taking 60mg of oral morphine daily (or equianalgesic dose of another opioid) for 1 week or more. *Often associated with chronic pain. *May take more than usual dose to achieve desired pain control. Review of Systems Constitutional: Denies Fever or Fatigue Head: Reports Normocephalic and Atraumatic Cardiovascular: Reports Other (+right posterior chest wall pain); Denies Chest pain, Chest Pressure or Edema Respiratory: Reports Cough and Shortness of air Gastrointestinal: Denies Nausea, Vomiting, Diarrhea, Abdominal pain or Melena Genitourinary: Denies Dysuria or Hematuria Neurological: Reports Weakness and Problems with walking; Denies Headache Physical examination Most Recent Vital Signs: Most Recent Vital Signs Temperature 97.5 F L 08/23/24 10:00 Temperature Source Temporal Artery Scan 08/23/24 10:00 Temperature Source Oral 08/22/24 23:21 Pulse Rate 92 08/23/24 10:00 Respiratory Rate 20 08/23/24 10:00 Blood Pressure 136/83 08/23/24 10:00 Blood Pressure Mean 100 08/23/24 10:00 Blood Pressure Right Arm 151/82 08/23/24 03:45 Blood Pressure Location Right Arm 08/23/24 10:00 Blood Pressure Position Standing 08/23/24 10:00 O2 Sat by Pulse Oximetry 98 08/23/24 10:00 Oxygen Delivery Method Room Air 08/23/24 10:00 Oxygen Flow Rate 0.5 08/23/24 09:36 Height 6 ft 08/23/24 03:45 Weight 59.6 kg 08/23/24 03:45 Telemetry Type Remote Telemetry 08/23/24 07:00 Telemetry Monitoring Continues 08/23/24 07:00 Telemetry Heart Rate 93 08/23/24 07:00 Telemetry SPO2 99 08/23/24 07:00 EKG MD Interval 0.17 08/23/24 07:00 EKG QRS Interval 0.05 L 08/23/24 07:00 Telemetry Strip Reading NSR 08/23/24 07:00 Appearance: Positive No Apparent Distress, Alert and Oriented x3 and Cachectic Skin: Positive [place], Warm and Good Turgor; Negative Rashes HEENT: Positive Normocephalic and Atraumatic Neck: Positive Supple and Midline Trachea Chest/Lungs: Positive Wheezes; Negative Rales or Rhonci Heart: Positive RRR GI/: Positive Soft, Nontender, Bowel Sounds Normal and No Distention Extremities: Negative Edema Neurological: Positive Cranial Nerves Intact, Alert, Oriented ([place]) and Other (+generalized weakness ) Labs This Visit Labs This Visit: Labs This Visit 08/22/24 08/22/24 08/23/24 23:35 23:36 00:29 WBC 11.81 H RBC 4.65 L Hgb 13.6 L Hct 42.0 MCV 90.3 MCH 29.2 MCHC 32.4 RDW Coeff of Katie 13.1 Plt Count 256 Immature Gran % (Auto) 0.3 Neut % (Auto) 76.4 H Lymph % (Auto) 14.0 [place] % (Auto) 8.6 Eos % (Auto) 0.6 Baso % (Auto) 0.1 Neut # (Auto) 9.0 H Lymph # (Auto) 1.7 [place] # (Auto) 1.0 Eos # (Auto) 0.1 Baso # (Auto) 0.0 Immature Gran # (Auto) 0.0 PT 10.2 INR 0.98 VBG pH VBG pCO2 VBG pO2 VBG HCO3 VBG O2 Saturation Sodium 134.1 L Potassium 3.54 Chloride 94.5 L Carbon Dioxide 27.4 Anion Gap 15.74 BUN 11.3 Creatinine 0.96 Estimated GFR (MDRD) 76.00 BUN/Creatinine Ratio 11.77 Glucose 231.4 H Calcium 9.53 Magnesium Total Bilirubin 1.49 H AST 24.2 ALT 12.5 Alkaline Phosphatase 92.0 Troponin I < 0.012 NT-Pro-B Natriuret Pep Total Protein 7.76 Albumin 4.37 Globulin 3.39 Albumin/Globulin Ratio 1.28 Urine Color Urine Clarity Urine pH Ur Specific [place] Urine Protein Urine Glucose (UA) Urine Ketones Urine Blood Urine Nitrite Urine Bilirubin Urine Urobilinogen Ur Leukocyte Esterase Urine Microscopic RBC Urine Microscopic WBC Ur Squamous Epith Cells Ur Transition Epith Cell Ur Renal Epithelial Cell Urine Bacteria SARS CoV-2 RNA Rapid MING 08/23/24 08/23/24 08/23/24 00:39 01:15 05:06 WBC 8.27 RBC 4.30 L Hgb 12.4 L Hct 38.7 L MCV 90.0 MCH 28.8 MCHC 32.0 RDW Coeff of Katie 13.1 Plt Count 232 Immature Gran % (Auto) 0.2 Neut % (Auto) 94.7 H Lymph % (Auto) 4.0 L [place] % (Auto) 1.1 Eos % (Auto) 0.0 Baso % (Auto) 0.0 Neut # (Auto) 7.8 H Lymph # (Auto) 0.3 L [place] # (Auto) 0.1 L Eos # (Auto) 0.0 Baso # (Auto) 0.0 Immature Gran # (Auto) 0.0 PT INR VBG pH 7.39 VBG pCO2 46 VBG pO2 43 H VBG HCO3 27.8 H VBG O2 Saturation 78.1 Sodium 132.0 L Potassium 3.40 L Chloride 93.0 L Carbon Dioxide 29.0 Anion Gap 13.40 BUN 13.0 Creatinine 0.90 Estimated GFR (MDRD) 82.00 BUN/Creatinine Ratio 14.44 Glucose 328.0 H D Calcium 8.90 Magnesium 1.70 Total Bilirubin 1.10 AST 20.0 ALT 13.0 Alkaline Phosphatase 79.0 Troponin I NT-Pro-B Natriuret Pep Total Protein 6.80 Albumin 3.80 Globulin 3.00 Albumin/Globulin Ratio 1.26 Urine Color Urine Clarity Urine pH Ur Specific [place] Urine Protein Urine Glucose (UA) Urine Ketones Urine Blood Urine Nitrite Urine Bilirubin Urine Urobilinogen Ur Leukocyte Esterase Urine Microscopic RBC Urine Microscopic WBC Ur Squamous Epith Cells Ur Transition Epith Cell Ur Renal Epithelial Cell Urine Bacteria SARS CoV-2 RNA Rapid MING Negative 08/23/24 08/23/24 08:27 Unknown WBC RBC Hgb Hct MCV MCH MCHC RDW Coeff of Katie Plt Count Immature Gran % (Auto) Neut % (Auto) Lymph % (Auto) [place] % (Auto) Eos % (Auto) Baso % (Auto) Neut # (Auto) Lymph # (Auto) [place] # (Auto) Eos # (Auto) Baso # (Auto) Immature Gran # (Auto) PT INR VBG pH VBG pCO2 VBG pO2 VBG HCO3 VBG O2 Saturation Sodium Potassium Chloride Carbon Dioxide Anion Gap BUN Creatinine Estimated GFR (MDRD) BUN/Creatinine Ratio Glucose Calcium Magnesium Total Bilirubin AST ALT Alkaline Phosphatase Troponin I NT-Pro-B Natriuret Pep 436 H Total Protein Albumin Globulin Albumin/Globulin Ratio Urine Color Yellow Urine Clarity Clear Urine pH 5.5 Ur Specific [place] 1.025 Urine Protein 1+ H Urine Glucose (UA) 3+ H Urine Ketones Trace H Urine Blood Trace-lysed Urine Nitrite Negative Urine Bilirubin Negative Urine Urobilinogen 0.2 Ur Leukocyte Esterase Negative Urine Microscopic RBC 0-2 Urine Microscopic WBC 0-2 Ur Squamous Epith Cells 0-2 Ur Transition Epith Cell 0-2 Ur Renal Epithelial Cell 0-2 Urine Bacteria Trace SARS CoV-2 RNA Rapid MING Imaging Imaging: EXAM: CHEST TWO VIEWS HISTORY: Trauma FINDINGS: Normal cardiac and mediastinal contours. Normal pulmonary vasculature. Lungs are clear. The lungs are hyperexpanded. No significant abnormality of the bony thorax. IMPRESSION: Emphysema No acute cardiopulmonary disease EXAM: CT CHEST WITHOUT CONTRAST History: Trauma Technique: [address] chest without contrast FINDINGS: Lung windows show severe emphysema. No pleural fluid or pn eumothorax. Atherosclerotic calcification of the aorta with maximum ascending diameter 3.9 cm. No pathologic lymph node enlargement. No acute chest wall abnormality. See abdominal CT for upper abdomen. Impression: 1. No acute post-traumatic change of the chest 2. Severe emphysema EXAM: CT OF THE CERVICAL SPINE WITHOUT CONTRAST TECHNIQUE: Noncontrast CT of the cervical spine performed with multiplanar reformats. HISTORY: Trauma. COMPARISON: None. FINDINGS: No acute fracture. Trace degenerative retrolisthesis at C3-4. Advanced multilevel degenerative spondylosis. Multilevel high-grade spinal canal or neural foraminal stenosis. Multifocal atherosclerotic calcifications. Severe emphysema. Calcified granuloma right upper lobe. Subcutaneous inclusion cyst in the posterior neck. No apical pneumothorax. IMPRESSION: No fracture of the cervical spine. EXAM: CT HEAD WITHOUT CONTRAST TECHNIQUE: Noncontrast CT of the head with multiple reformats. HISTORY: Trauma. COMPARISON: Brain MRI 02/05/2017. FINDINGS: No acute intracranial hemorrhage. Old lacunar infarcts in the basal ganglia and thalami bilaterally, left vaughn, and bilateral cerebellum. Severe chronic microvascular changes of the white matter. Moderate brain volume loss. No brain herniation. Patent basilar cisterns. Partially empty sella. Ventricles are proportional to brain volume. No acute osseous abnormality. Lens replacement of the left globe. Atherosclerotic calcifications of the carotid siphons. Scattered dental caries and periapical lucencies. Mastoid air cells and paranasal sinuses are predominately clear. IMPRESSION: No acute intracranial abnormality. Old lacunar infarcts in the basal ganglia, thalami, and cerebellum bilaterally and in the left vaughn. Advanced senescent changes. EXAM: CT ABDOMEN WITHOUT CONTRAST History: Trauma Technique: 2.[address] abdomen without contrast. The exam includes through the acetabular roofs bilaterally. FINDINGS: Emphysema in the otherwise clear lung bases. No significant liver abnormality. The adrenals, pancreas and spleen are unremarkable. The stomach and hiatus are unremarkable.The gallbladder appears normal. Atherosclerotic calcification of the aorta with maximum infrarenal aorta diameter 3.1 cm. Nonobstructing calcifications versus vascular calcifications both kidneys. No hydronephrosis, inflammation or hydroureter. No ascites. The appendix is normal. Bowel loops demonstrate normal caliber. No inflamatory change seen in the mesentery or retroperitoneum. Multiple sigmoid colonic diverticula. No ac [place] findings of the skeleton. Chronic L5 pars interarticularis defects. Impression: 1. No evidence of injury to solid or hollow intra-abdominal viscera by noncontrast CT 2. Possible nonobstructing nephrolithiasis versus vascular calcifications 3. Abdominal aortic aneurysm 3.9 cm 4. No acute findings Review Statement Review Statement: I have independently reviewed and interpreted the labs/EKGs/imaging that were ordered by the ER provider. I have reviewed all outside records that are available currently in our EMR including imaging/notes/labs from previous visits. Plan Plan: 1. Acute hypoxic respiratory failure in setting of COPD exacerbation - O2, duonebs, azith, solumedrol. Wean when able. 2. Acute COPD exacerbation - Plan as above. Smoking cessation. Cont home inhalers. Robitussin. 3. Frequent falls - PT OT. Orthostats negative. 4. Right sided posterior chest wall pain - Lidocaine patch, oxy prn, pt/ot. No fracture seen on CT. 5. Hypertension - Cont home meds 6. DMT2 - Diabetic diet, humalog ss., hold metformin 7. BPH - Cont home meds 8. Hyperlipidemia - Cont home meds DVT Prophylaxis: Ambulation Time Spent: Greater than 80 minutes spent with patient, 50% of the time spent with this patient was devoted to counseling and coordination of care. [facility]annin minutes spent discussing advance care planning. Smoking Cessation: 3 minutes spent discussing smoking cessation. Admit to: Inpatient Discussed Plan of Care with Dr. Ashley Steiner. Medications Medication Orders: Medications Ordered Category Date Time Status Acetaminophen [Tylenol] Meds 08/23/24 03:08 Active 650 mg PO Q4H PRN Azithromycin [Zithromax] Meds 08/23/24 21:00 Active 500 mg PO BEDTIME Budesonide/Formoterol Fumarate [Symbicort 160-4.5 Mcg Meds 08/23/24 09:00 Active Inhaler] 2 puff IH BID Clopidogrel Bisulfate [Plavix] Meds 08/23/24 09:00 Active 75 mg PO DAILY Guaifenesin/Dextromethorphan [Robitussin Dm Syrup] Meds 08/23/24 11:39 Ordered 10 ml PO Q6HR PRN Ipratropium/Albuterol Neb [Duoneb] Meds 08/23/24 06:00 Active 3 ml NEB RTQ4H Lidocaine Patch [Lidoderm 5 % Patch] Meds 08/23/24 08:27 Active 1 patch TP DAILY PRN Metformin HCl [Glucophage] Meds 08/23/24 07:30 Hold 1,000 mg PO BIDWM2 Methylprednisolone Sod Succ/Pf [Solu-Medrol 40 mg] Meds 08/23/24 08:35 Active 40 mg IVP Q8HR Oxybutynin Chloride [Ditropan Xl] Meds 08/23/24 09:00 Active 10 mg PO DAILY Oxycodone HCl [Oxycodone] Meds 08/23/24 03:12 Active 5 mg PO Q6H PRN Rosuvastatin Calcium [Crestor] Meds 08/23/24 09:00 Active 20 mg PO DAILY Sitagliptin Phosphate [Januvia] Meds 08/23/24 09:00 Active 100 mg PO DAILY Tamsulosin HCl [Flomax] Meds 08/23/24 09:00 Active 0.4 mg PO DAILY Tiotropium [place] [Spiriva] Meds 08/23/24 09:00 Active 1 cap IH DAILY
--- NOTE | 2024-08-23 11:55 | RS.PTINEVL ---
Subjective Patient information Date of Evaluation: 08/23/24 Date of Arrival on Unit: 08/23/24 Admitted From:: Home Diagnosis: COPD exacerbation, s/p fall Usual Living Arrangement: With Spouse Living Arrangement Comments: lives with and son Home Environment: House, Stairs (few) (5) and Rail Medical History: Hypertension, CVA/TIA, COPD and Arthritis Medical History Comments:: BPH, PAD, very [place] LATEX ALLERGY?: No Medications: see chart Subjective Information/ Patient Comments:: pt states that he will try to walk. pt very [place] requires loud, simple, single step commands. Level of function Prior to this admission, the patient could do the following:: Independent Selfcare, Independent ADL's and Independent Ambulation Abilities prior to this admission: pt did not use AD Current Level of Function: Partially Dependent Current Equipment Used at Home: GLUCOMETER, NEBULIZER Pain Assessement Location ribs: Description: Tightness and Aching Intensity: 4 Pain Behavior: Facial Grimacing Pain Aggravating Factors: Changing Position Pain Alleviating Factors: Position Change Interventions Objective Patient Orientation: Person and Place Current Interventions: Telemetry Observation: pt with thin, frail appearance with increased thoracic kyphosis Range of Motion ROM Right Upper Extremity AROM: WFL's Left Upper Extremity AROM: WFL's Right Lower Extremity AROM: WFL's Left Lower Extremity AROM: WFL's Muscle Strength Muscle Strength Right Upper Extremity: Mild Weakness (grossly 4/5) Left Upper Extremity: Mild Weakness (grossly 4/5 ) Right Lower Extremity: Mild Weakness (hip flex 4-/5, knee flex/ext 4/5, ankle DF/PF 4/5 ) Left Lower Extremity: Mild Weakness (hip flex 4-/5, knee flex/ext 4/5, ankle DF/PF 4/5 ) Sensation Sensation Right Upper Extremity: Intact/Normal Left Upper Extremity: Intact/Normal Right Lower Extremity: Intact/Normal Left Lower Extremity: Intact/Normal Palpation Palpation Findings: Tenderness (ribs) Balance Sitting Balance and Reactions Static Sitting Balance: Fair Dynamic Sitting Balance: Poor Standing Balance and Reactions Static Standing Balance: Poor Dynamic Standing Balance: Poor Functional Mobility Bed Mobility Rolling R/L: Supervision Scooting: Min Assist Supine to Sit: CGA Sit to Supine: CGA Transfers Sit to Stand: CGA Stand to Sit: CGA Safety Awareness Safety Awareness: Poor [place] INDEX SCORE: n/a Ambulation Ambulation Assistive Device Used: Rolling Walker Orthotic/Prosthetic Device: No Distance: 70ft Assistance needed with Ambulation: CGA and 1 person assist Gait Deviations: Wide Based gait, Forward posture and Short stride Ambulation Comments: pt amb with flexed posture, decreased step length Factors Affecting Ambulation: Decreased Balance, Pain, Weakness, Decreased Coordination, Decreased Safety, Cognitive Status and Limited Endurance Treatment time Units charged Gait trainin Time with patient Length of Evaluation: 18 Total treatment time: 27 Patient Education Education Patient Education: Activity Modification and Education of Plan of Care Teaching Recipient: Patient Teaching Methods: Discussion Comments: discussion regarding POC as well as dc planning with pt and spouse Assessment Assessment Problem List:: Decreased level of function, Requires training/education, Decreased safety/Risk of falls, Weakness, Pain limits previous level of function and Cognitive status limits abilities Rehab Potential: Fair Further Therapy Indicated?: Yes Candidate for Swing Bed for Therapy Services?: Feel pt may not be a candidate for swing bed due to high functional level Evaluation Complexity: HISTORY: Medium, EXAM OF BODY SYSTEMS: Medium, CLINICAL PRESENTATION: Medium and CLINICAL DECISION MAKING: Medium Patient's Goal(s): Go home Short Term Goals GOAL #1: pt demonstrate rolling in bed and bridging independently. Goal to be met by: 08/26/24 GOAL #2: Transfer sup to/from sit SBA Goal to be met by: 08/26/24 GOAL #3: Transfer sit to/from stand SBA Goal to be met by: 08/26/24 GOAL #4: pt amb 100ft with RWX CGA x 1 Goal to be met by: 08/26/24 GOAL #5: Improve BLE strength 4+/5 Goal to be met by: 08/26/24 Coke Worker Goals GOAL #1: pt amb functional household distances with rwx SBA to independent. Goal to be met by: 08/28/24 GOAL #2: Transfer sup to/from sit to/from stand independnetly. Goal to be met by: 08/28/24 GOAL #3: pt ascend/descend 5 steps w handrail CGA Goal to be met by: 08/28/24 Plan Plan of Care: Therapeutic EX and Therapeutic Activity Other:: gait training Frequency of Treatment: 1-2 X day, as tolerated Duration of Treatment: 5 days Anticipated Discharge Destination: Home Treatment Diagnosis (ICD 10 Codes): impaired balance R 26.81 gait difficulty R26.2 weakness M62.81 Has the Physician been added for Co-signature?: Yes
[2024-08-23] MEDS: HUMALOG (10 ML VIAL) SUBCUT ONE (12:03)
[2024-08-23] MEDS: ROBITUSSIN DM SYRUP PO PRN (12:04)
--- NOTE | 2024-08-23 13:37 | RS.OTINEVL ---
Subjective Patient information Date of Evaluation: 08/23/24 Date of Arrival on Unit: 08/23/24 Admitted From:: Emergency Dept Diagnosis: COPD Exacerbation, DMII, Hypoxia PRECAUTIONS: R posterior rib pain Usual Living Arrangement: With Spouse Living Arrangement Comments: lives with at home Home Environment: House Medical History: Hypertension, CVA/TIA, COPD and Diabetes Medical History Comments:: CVA, Right side weakness, HTN, Diabetes, smoker Subjective Information/ Patient Comments:: "No." (Pt does not use a RW at home) Pt reports he still drives. Level of function Prior to this admission, the patient could do the following:: Independent Selfcare, Independent ADL's, Independent Ambulation and Drive Abilities prior to this admission: Pt leans against the wall while he urinates. Pt has a difficult time with his aim and a difficult time urinating. Current Level of Function: Partially Dependent Comments: Pt is weak and becomes SOA with activity. Current Equipment Used at Home: GLUCOMETER, NEBULIZER Pain Assessment Pain Pain Score: 4 Side: right Pain Location Body Site: Back (Ribs) Pain Aggravating Factors: Changing Position Pain Alleviating Factors: Medication Interventions Objective Patient Orientation: Person, Place and Situation Current Interventions: Oxygen Observation: Pt appears weak during ambulation and functional mobility from EOB to bathroom. Pt is in bed with head elevated. Interventions ROM Right Upper Extremity AROM: WFL's Left Upper Extremity AROM: WFL's Strength Right Upper Extremity: Mild Weakness Left Upper Extremity: Mild Weakness Sensation Right Upper Extremity: Intact/Normal Left Upper Extremity: Intact/Normal Balance Sitting Balance Static Sitting Balance: Good Dynamic Sitting Balance: Good Standing Balance Static Standing Balance: Poor Dynamic Standing Balance: Poor ADL Skills Self Feeding Self Feeding: Independent Grooming Grooming: Min Assist Grooming Set-up: Sitting Bathing Bathing UE: Min Assist Bathing LE: Mod Assist Bathing Set-up: Shower Dressing Dressing UE: CGA Dressing LE: Max Assist Toilet Management Toilet Hygiene: CGA and 1 person assist Toilet Clothing Management: Independent Functional Mobility Bed Mobility Rolling R/L: Independent Scooting: Independent Supine to Sit: Independent Transfers Sit to Stand: CGA Stand to Sit: CGA Stand Pivot Transfers: CGA Ambulation Weight Bearing Status: FWB Assistive Device Used: Rolling Walker Assistance needed with Ambulation: CGA (Pt reported he does not use a RW at home.) Safety Awareness Safety Awareness: Fair [place] INDEX SCORE: . Additional Treatment Performed Additional units charged ADL: 12 Time with patient Length of Evaluation: 18 Total treatment time: 30 Activities Patient Interests:: Watching Television and Visiting/Socializing Patient Education Patient Education: Education of diagnosis, Home Exercise Program and Education of Plan of Care Teaching Recipient: Patient Teaching Methods: Discussion and Demonstration Assessment Problem List:: Decreased level of function, Requires training/education, Decreased safety/Risk of falls and Weakness Rehab Potential: Fair Further Therapy Indicated?: Yes Evaluation Complexity: HISTORY: Medium, EXAM OF BODY SYSTEMS: Medium and CLINICAL DECISION MAKING: Medium Patient's Goal(s): To get well and go home. Short Term Goals Goals GOAL 1: Pt to increase BUE strength to 4+/5. Goal to be met by: 08/26/24 GOAL 2: Pt to be I with toileting. Goal to be met by: 08/26/24 GOAL 3: Pt to increase dyn. std. bal. to Fair+. Goal to be met by: 08/26/24 GOAL 4: Pt to be able to stand at sink to complete combing his hair. Goal to be met by: 08/26/24 Residential Goals GOAL 1: Pt to be I with ADLs. Goal to be met by: 08/28/24 GOAL 2: Pt to increase dyn. std. bal. to G-. Goal to be met by: 08/28/24 GOAL 3: Pt to increase BUE strength to 5/5. Goal to be met by: 08/28/24 Plan Plan of Care: Therapeutic EX, Therapeutic Activity and Self-Care/Home Management Frequency of Treatment: 1-2 X day, as tolerated Duration of Treatment: 5 days Anticipated Discharge Destination: Home Treatment Diagnosis (ICD 10 Codes): Weakness M62.81, Z74.1 Need for assistance with personal care. Has the Physician been added for Co-signature?: Yes
[2024-08-23] MEDS: HUMALOG (10 ML VIAL) SUBCUT PRN (17:09)
[2024-08-23] MEDS: ZITHROMAX PO SCH (20:30)
[2024-08-23] MEDS: NICODERM 14 MG TD SCH (21:25)
[2024-08-23] MEDS: OXYCODONE PO PRN (21:25)
[2024-08-24 08:10] LABS: BASOPHILS % (AUTO) 0.1 % (0.0-3.0); HEMATOCRIT 38.5 % (42.0-52.0); HEMOGLOBIN 12.4 g/dl (14.0-18.0); IMMATURE GRANULOCYTE # (AUTO) 0.1 (0.0-1.0); IMMATURE GRANULOCYTE % (AUTO) 0.3 % (0.0-5.0); LYMPHOCYTES # (AUTO) 0.7 K/uL (0.60-3.4); LYMPHOCYTES % (AUTO) 4.2 (10.0-50.0); MEAN CORPUSCULAR HEMOGLOBIN 29.4 pg (27.0-31.0); MEAN CORPUSCULAR HGB CONC 32.2 (31.8-35.4); MEAN CORPUSCULAR VOLUME 91.2 fl (80.0-94.0); MONOCYTES # (AUTO) 0.7 K/uL (0.4-2.0); MONOCYTES % (AUTO) 4.4 (0-10); NEUTROPHILS # (AUTO) 14.2 K/ul (2.0-6.9); PLATELET COUNT 257 10^3/uL (140-440); RDW COEFFICIENT OF VARIATION 13.4 % (11.6-14.8); RED BLOOD COUNT 4.22 10^6/ul (4.70-6.10)
[2024-08-24 08:17] LABS: ALBUMIN 4.32 g/dL (3.5-5.0); ALKALINE PHOSPHATASE 69.1 U/L (56-119); BILIRUBIN,TOTAL 0.97 mg/dL (0.2-1.3); CALCIUM 9.56 mg/dL (8.4-10.2); CARBON DIOXIDE 27.9 mmol/L (22-30.0); CHLORIDE 90.4 mmol/L (98-107); CREATININE 1.07 mg/dL (0.60-1.10); GLUCOSE 186.1 mg/dL (74-106); MAGNESIUM 1.97 mg/dL (1.6-2.3); POTASSIUM 4.32 mmol/L (3.5-5.1); SODIUM 131.9 mmol/L (134.5-145); TOTAL PROTEIN 7.65 g/dL (6.3-8.2)
--- NOTE | 2024-08-24 08:48 | PCM.PROG ---
Date/Time Seen Date Seen by Provider: 08/24/24 Time Seen by Provider: 08:00 Provider Provider: RENETTA EARL [facility]-C, [facility] Chief Complaint Chief Complaint: COPD EXACERBATION, HYPOXIA Subjective Subjective: Patient is more alert and interactive today. More conversational. Answering questions appropriately. Complains of right rib pain. Has a cough. Has been ambulatory to the bathroom. Required 2L overnight, dropped into 80s. Objective Appearance: Positive No Apparent Distress and Alert and Oriented x3 Chest/Lungs: Positive Clear to Auscultation Bilaterally and Wheezes (mild yana ) Heart: Positive RRR GI/: Positive Soft, Nontender, Bowel Sounds Normal and No Distention Neurological: Positive Cranial Nerves Intact, Alert, Oriented and Other (+generalized weakness, frail, thin) Vital Signs Vital Signs: Vital Signs: Last 24 Hours 08/23/24 09:36 08/23/24 10:00 08/23/24 13:00 Temperature 97.5 F L Temperature Source Temporal Artery Scan Pulse Rate 92 Respiratory Rate 20 Blood Pressure 136/83 Blood Pressure Mean 100 Blood Pressure Location Right Arm Blood Pressure Position Standing O2 Sat by Pulse Oximetry 97 98 Oxygen Delivery Method Nasal Cannula Room Air Oxygen Flow Rate 0.5 Telemetry Type Remote Telemetry Telemetry Monitoring Continues Telemetry Heart Rate 82 Telemetry SPO2 93 EKG [place] Interval 0.17 EKG QRS Interval 0.07 Telemetry Strip Reading NSR 08/23/24 13:37 08/23/24 14:00 08/23/24 17:32 Temperature 98.9 F 97.9 F Temperature Source Temporal Artery Scan Temporal Artery Scan Pulse Rate 91 92 Respiratory Rate 16 16 Blood Pressure 136/76 100/73 Blood Pressure Mean 96 82 Blood Pressure Location Right Arm Right Arm Blood Pressure Position Sitting Sitting O2 Sat by Pulse Oximetry 95 96 97 Oxygen Delivery Method Room Air Room Air Room Air Oxygen Flow Rate Telemetry Type Telemetry Monitoring Telemetry Heart Rate Telemetry SPO2 EKG [place] Interval EKG QRS Interval Telemetry Strip Reading 08/23/24 19:00 08/23/24 20:00 08/23/24 20:00 Temperature Temperature Source Pulse Rate Respiratory Rate 20 Blood Pressure Blood Pressure Mean Blood Pressure Location Blood Pressure Position O2 Sat by Pulse Oximetry 90 L Oxygen Delivery Method Room Air Oxygen Flow Rate Telemetry Type Remote Telemetry Telemetry Monitoring Continues Telemetry Heart Rate 86 Telemetry SPO2 92 L EKG [place] Interval 0.12 EKG QRS Interval 0.08 Telemetry Strip Reading Sinus Rhythm 08/23/24 21:22 08/24/24 01:00 08/24/24 04:51 Temperature 97.9 F 96.8 F L Temperature Source Temporal Artery Scan Temporal Artery Scan Pulse Rate 93 92 Respiratory Rate 16 18 Blood Pressure 135/89 123/71 Blood Pressure Mean 104 88 Blood Pressure Location Left Arm Left Arm Blood Pressure Position Supine Supine O2 Sat by Pulse Oximetry 95 95 Oxygen Delivery Method Room Air Nasal Cannula Oxygen Flow Rate 2 Telemetry Type Remote Telemetry Telemetry Monitoring Continues Telemetry Heart Rate 91 Telemetry SPO2 96 EKG [place] Interval 0.15 EKG QRS Interval 0.07 Telemetry Strip Reading Sinus Rhythm 08/24/24 05:16 08/24/24 07:00 Temperature Temperature Source Pulse Rate Respiratory Rate Blood Pressure Blood Pressure Mean Blood Pressure Location Blood Pressure Position O2 Sat by Pulse Oximetry 95 Oxygen Delivery Method Nasal Cannula Oxygen Flow Rate 2 Telemetry Type Remote Telemetry Telemetry Monitoring Continues Telemetry Heart Rate 88 Telemetry SPO2 95 EKG [place] Interval 0.14 EKG QRS Interval 0.06 Telemetry Strip Reading SR Lab Results Lab Results: Lab Results: Last 24 Hours 08/24/24 08/23/24 08:00 08:27 WBC 15.60 H D RBC 4.22 L Hgb 12.4 L Hct 38.5 L MCV 91.2 MCH 29.4 MCHC 32.2 RDW Coeff of Katie 13.4 Plt Count 257 Immature Gran % (Auto) 0.3 Neut % (Auto) 91.0 H Lymph % (Auto) 4.2 L Bryan % (Auto) 4.4 Eos % (Auto) 0.0 Baso % (Auto) 0.1 Neut # (Auto) 14.2 H Lymph # (Auto) 0.7 Bryan # (Auto) 0.7 Eos # (Auto) 0.0 Baso # (Auto) 0.0 Immature Gran # (Auto) 0.1 Sodium 131.9 L Potassium 4.32 Chloride 90.4 L Carbon Dioxide 27.9 Anion Gap 17.92 BUN 27.0 H Creatinine 1.07 Estimated GFR (MDRD) 67.00 BUN/Creatinine Ratio 25.23 Glucose 186.1 H Calcium 9.56 Magnesium 1.97 Total Bilirubin 0.97 Alkaline Phosphatase 69.1 Total Protein 7.65 Albumin 4.32 Globulin 3.33 Albumin/Globulin Ratio 1.29 Urine Color Yellow Urine Clarity Clear Urine pH 5.5 Ur Specific [place] 1.025 Urine Protein 1+ H Urine Glucose (UA) 3+ H Urine Ketones Trace H Urine Blood Trace-lysed Urine Nitrite Negative Urine Bilirubin Negative Urine Urobilinogen 0.2 Ur Leukocyte Esterase Negative Urine Microscopic RBC 0-2 Urine Microscopic WBC 0-2 Ur Squamous Epith Cells 0-2 Ur Transition Epith Cell 0-2 Ur Renal Epithelial Cell 0-2 Urine Bacteria Trace Additional Comments Additional Comments: I have independently reviewed and interpreted the labs/EKGs/imaging ordered during this hospital stay. I have reviewed outside records that are available in our EMR that pertain to medical stay including imaging/notes/labs from previous visits. Active Medications Active Medications: Medications Generic Name Dose Route Start Last Admin Trade Name Freq PRN Reason Stop Dose Admin Acetaminophen 650 mg 08/23/24 03:08 Acetaminophen 325 Mg Tablet PO Q4H PRN Mild Pain Albuterol/Ipratropium 3 ml 08/23/24 06:00 08/24/24 05:17 Ipratropium/Albuterol Vial.Neb NEB 3 ml RTQ4H YARED Administration Azithromycin 500 mg 08/23/24 21:00 08/23/24 20:30 Azithromycin 250 Mg Tablet PO 08/26/24 20:59 500 mg BEDTIME YARED Administration Budesonide/Formoterol Fumarate 2 puff 08/23/24 09:00 08/24/24 08:36 Budesonide/Formoterol Fumarate 160/4.5 Mcg Inhaler IH 2 puff BID YARED Administration Clopidogrel Bisulfate 75 mg 08/23/24 09:00 08/24/24 08:37 Clopidogrel Bisulfate 75 Mg Tablet PO 75 mg DAILY YARED Administration Guaifenesin/Dextromethorphan 10 ml 08/23/24 11:39 08/23/24 12:04 Guaifenesin/Dextromethorphan 200/20 Mg/10 Ml Cup PO 10 ml Q6HR PRN Administration Cough Insulin Human Lispro 0 unit 08/23/24 11:43 08/24/24 05:18 Insulin Lispro 100 Unit/Ml (10 Ml Vial) SUBCUT 5 unit PRN PRN Administration Hyperglycemia Protocol Lidocaine 1 patch 08/23/24 08:27 08/23/24 09:05 Lidocaine 5% Patch TP 1 patch DAILY PRN Administration muscle pain Metformin HCl 1,000 mg 08/23/24 07:30 08/23/24 08:31 Metformin Hcl 500 Mg Tablet PO 1,000 mg BIDWM2 YARED Administration Methylprednisolone Sodium Succinate 40 mg 08/23/24 08:35 08/24/24 04:50 Methylprednisolone Sod Succ/Pf 40 Mg/Ml Vial IVP 40 mg Q8HR YARED Administration Nicotine 1 patch 08/23/24 20:55 08/24/24 08:36 Nicotine 14 Mg Patch.Td24 TD 1 patch DAILY YARED Administration Oxybutynin Chloride 10 mg 08/23/24 09:00 08/24/24 08:36 Oxybutynin Chloride 5 Mg Tab.Er.24 PO 10 mg DAILY YARED Administration Oxycodone HCl 5 mg 08/23/24 03:12 08/24/24 08:36 Oxycodone Hcl 5 Mg Tablet PO 5 mg Q6H PRN Administration severe pain Rosuvastatin Calcium 20 mg 08/23/24 09:00 08/24/24 08:37 Rosuvastatin Calcium 10 Mg Tablet PO 20 mg DAILY YARED Administration Sitagliptin Phosphate 100 mg 08/23/24 09:00 08/24/24 08:37 Sitagliptin Phosphate 50 Mg Tablet PO 100 mg DAILY YARED Administration Sodium Chloride 1 syr 08/23/24 21:00 08/24/24 04:50 0.9% Sodium Chloride 10 Ml Disp.Syrin IVF 1 syr Q8HR YARED Administration Sodium Chloride 1 syr 08/23/24 13:35 0.9% Sodium Chloride 10 Ml Disp.Syrin IVF PRN PRN Maintain IV Patency Tamsulosin HCl 0.4 mg 08/23/24 09:00 08/24/24 08:37 Tamsulosin Hcl 0.4 Mg Cap.Er.24h PO 0.4 mg DAILY YARED Administration Tiotropium Pierce 1 cap 08/23/24 09:00 08/24/24 08:36 Tiotropium Pierce 18 Mcg Cap.W.Dev IH 1 cap DAILY YARED Administration Plan Plan: 1. Acute hypoxic respiratory failure in setting of COPD exacerbation - O2, duonebs, azith, solumedrol. Wean when able. 2. Acute COPD exacerbation - Plan as above. Smoking cessation. Cont home inhalers. Robitussin. 3. Frequent falls - PT OT. Orthostats negative. 4. Right sided posterior chest wall pain - Lidocaine patch, oxy prn, pt/ot. No fracture seen on CT. 5. Hypertension - Cont home meds 6. DMT2 - Diabetic diet, humalog ss., hold metformin 7. BPH - Cont home meds 8. Hyperlipidemia - Cont home meds DVT: lovenox Dispo: Possible discharge tomorrow Review Statement Review Statement: I have personally discussed and reviewed the patient's visit/currently labs/imaging/decision making with Dr. Morris, my supervising attending. Greater that 50 minutes spent with patient, 50% of the time spent with this patient was devoted to counseling and coordination of care.
[2024-08-24 09:00] LABS: ALANINE AMINOTRANSFERASE 36.1 U/L (0-50)
[2024-08-24 09:10] LABS: ASPARTATE AMINO TRANSFERASE 36.5 U/L (17-59)
[2024-08-24] MEDS: SODIUM CHLORIDE 1,000 ML IV SCH (10:22)
[2024-08-24 21:00] VITALS: PULSE 80
[2024-08-24] MEDS: FLOMAX PO ONE (21:04)
[2024-08-25 05:08] VITALS: BP 168/90; TEMP 97.6
[2024-08-25 08:50] LABS: BASOPHILS % (AUTO) 0.1 % (0.0-3.0); EOSINOPHILS % (AUTO) 0.1 % (0.0-7.0); HEMATOCRIT 39.6 % (42.0-52.0); HEMOGLOBIN 12.3 g/dl (14.0-18.0); IMMATURE GRANULOCYTE # (AUTO) 0.1 (0.0-1.0); IMMATURE GRANULOCYTE % (AUTO) 0.6 % (0.0-5.0); LYMPHOCYTES # (AUTO) 0.4 K/uL (0.60-3.4); LYMPHOCYTES % (AUTO) 2.3 (10.0-50.0); MEAN CORPUSCULAR HEMOGLOBIN 28.4 pg (27.0-31.0); MEAN CORPUSCULAR HGB CONC 31.1 (31.8-35.4); MEAN CORPUSCULAR VOLUME 91.5 fl (80.0-94.0); MONOCYTES % (AUTO) 6.3 (0-10); NEUTROPHILS # (AUTO) 13.9 K/ul (2.0-6.9); NEUTROPHILS % (AUTO) 90.6 % (42.2-75.2); PLATELET COUNT 282 10^3/uL (140-440); RDW COEFFICIENT OF VARIATION 13.5 % (11.6-14.8); RED BLOOD COUNT 4.33 10^6/ul (4.70-6.10); WHITE BLOOD COUNT 15.39 K/ul (4.2-10.2)
[2024-08-25 09:04] LABS: ALBUMIN 4.12 g/dL (3.5-5.0); BILIRUBIN,TOTAL 0.88 mg/dL (0.2-1.3); BLOOD UREA NITROGEN 25.7 mg/dL (9-20); CALCIUM 9.29 mg/dL (8.4-10.2); CARBON DIOXIDE 25.5 mmol/L (22-30.0); CREATININE 1.01 mg/dL (0.60-1.10); GLUCOSE 279.1 mg/dL (74-106); POTASSIUM 4.2 mmol/L (3.5-5.1); SODIUM 131.7 mmol/L (134.5-145); TOTAL PROTEIN 7.26 g/dL (6.3-8.2)
[2024-08-25 09:10] LABS: ASPARTATE AMINO TRANSFERASE 41.1 U/L (17-59)
[2024-08-25 09:11] LABS: ALANINE AMINOTRANSFERASE 33.3 U/L (0-50)
[2024-08-25] MEDS: PROSCAR PO SCH (09:29)
[2024-08-25 10:55] VITALS: RESP 20
--- NOTE | 2024-08-25 11:05 | DCSUM ---
Admission Date Admission Date: 08/23/24 Discharge Date Discharge Date: 08/25/24 Admission Diagnosis Admission Diagnosis: 1. Acute hypoxic respiratory failure in setting of COPD exacerbation 2. Acute COPD exacerbation 3. Frequent falls 4. Right sided posterior chest wall pain Discharge Diagnosis Discharge Diagnosis: 1. Acute hypoxic respiratory failure in setting of COPD exacerbation - resolved 2. Acute COPD exacerbation - improved 3. Frequent falls 4. Right sided posterior chest wall pain - improved 5. Hypertension 6. DMT2 7. BPH 8. Hyperlipidemia 9. Urinary retention likely in setting of BPH - finasteride bel, marcel, uro referral Hospital Provider Hospital Provider: RENETTA EARL PA-C, [facility] Primary Care Physician Primary Care Physician: RUSSEL MORRIS MD Summary of History and Physical Summary of History and Physical: Patient is a 73 year old male from home with pmhx of CVA, COPD, BPH, hyp erlipidemia, diabetes type 2, hypertension who presented to the ER for multiple falls and right-sided rib pain. He was seen by his PCP on Wednesday for a fall and then fell again last night hurting his right side. Family had concerns about possible broken ribs. He had multiple imaging modalities done in the ER including CT head, CT cervical spine, CT chest, CT abdomen pelvis without any acute findings. He was found to be hypoxic in the 80s and felt to be in a COPD exacerbation. Concern that this was leading to his falls. He was given Solu- Medrol, azithromycin, and DuoNebs. He was placed on 2 L. He was given IV pain medication as well. And he was admitted to [facility] for further treatment. is at bedside today and states that he has had 3 falls in the last 4 days. He was reluctant to come to the hospital. She denies that he has had any worsening confusion, just states that he tends to get angry easily. She states that he has been eating and drinking fine at home. He normally does not use an assistive device. He does not usually require oxygen. He does continue to smoke. Patient is able to answer most questions appropriately but is very hard of hearing. He only complains of right rib pain. Hospital Course Subjective: Patient was treated with O2, solumedrol, and azithromycin for acute COPD e xacerbation. He was weaned to RA. He has done well overall. He was noted to have difficulty urinating, mostly dribbling. He contributes to "everyone watching me pee." Although he continued to have issues despite being provided privacy. He continued to have urinary retention despite trying to straight cath. A lombardo catheter was placed morning on 08/25. Discussed adding finasteride to his medication regimen and following up outpatient with urology. CT abdomen performed in ER due to his fall, did not show any hydronephrosis, hydroureter, or obstructing stones at that time. and patient educated on catheter care. Home health ordered. Pt worked with therapy and did well overall, seems to be impulsive though and doesn't want to use walker. F/u with pcp within 1 week. He has completed azith. Will discharge on steroids and finasteride. Pt agrees to plan of care. He has been requesting discharge since yesterday. Unable to make uro follow up today due to holiday weekend, offices are closed. Message left with social media marketer to address on Wednesday. Also updated patient's PCP Dr. Kinjal Morris. Appearance: Pleasant, No Apparent Distress, Alert and Other (+thin, frail ) HEENT: MMM CVS: Other (RRR) Abdomen: Soft, Non-Tender and No Distention Respiratory: No Accessory Muscle Use Extremities: No Edema Vital Signs: Most Recent Vital Signs Temperature 97.6 F 08/25/24 05:07 Temperature Source Temporal Artery Scan 08/25/24 05:07 Temperature Source Oral 08/22/24 23:21 Pulse Rate 80 08/25/24 05:07 Respiratory Rate 20 08/25/24 08:00 Blood Pressure 168/90 H 08/25/24 05:07 Blood Pressure Mean 116 08/25/24 05:07 Blood Pressure Right Arm 151/82 08/23/24 03:45 Blood Pressure Location Left Arm 08/25/24 05:07 Blood Pressure Position Supine 08/25/24 05:07 O2 Sat by Pulse Oximetry 92 L 08/25/24 05:26 Oxygen Delivery Method Room Air 08/25/24 08:00 Oxygen Flow Rate 1 08/25/24 05:26 Height 6 ft 08/23/24 03:45 Weight 59.6 kg 08/23/24 03:45 Telemetry Type Remote Telemetry 08/25/24 07:00 Telemetry Monitoring Continues 08/25/24 07:00 Telemetry Heart Rate 79 08/25/24 07:00 Telemetry SPO2 90 L 08/24/24 13:00 EKG MS Interval 0.14 08/25/24 07:00 EKG QRS Interval 0.06 08/25/24 07:00 Telemetry Strip Reading NSR 08/25/24 07:00 Imaging: EXAM: CHEST TWO VIEWS HISTORY: Trauma FINDINGS: Normal cardiac and mediastinal contours. Normal pulmonary vasculature. Lungs are clear. The lungs are hyperexpanded. No significant abnormality of the bony thorax. IMPRESSION: Emphysema No acute cardiopulmonary disease EXAM: CT CHEST WITHOUT CONTRAST History: Trauma Technique: [address] chest without contrast FINDINGS: Lung windows show severe emphysema. No pleural fluid or pneumothorax. Atherosclerotic calcification of the aorta with maximum ascending diameter 3.9 cm. No pathologic lymph node enlargement. No acute chest wall abnormality. See abdominal CT for upper abdomen. Impression: 1. No acute post-traumatic change of the chest 2. Severe emphysema EXAM: CT OF THE CERVICAL SPINE WITHOUT CONTRAST TECHNIQUE: Noncontrast CT of the cervical spine performed with multiplanar reformats. HISTORY: Trauma. COMPARISON: None. FINDINGS: No acute fracture. Trace degenerative retrolisthesis at C3-4. Advanced multilevel degenerative spondylosis. Multilevel high-grade spinal canal or neural foraminal stenosis. Multifocal atherosclerotic calcifications. Severe emphysema. Calcified granuloma right upper lobe. Subcutaneous inclusion cyst in the posterior neck. No apical pneumothorax. IMPRESSION: No fracture of the cervical spine. EXAM: CT HEAD WITHOUT CONTRAST TECHNIQUE: Noncontrast CT of the head with multiple reformats. HISTORY: Trauma. COMPARISON: Brain MRI 02/05/2017. FINDINGS: No acute intracranial hemorrhage. Old lacunar infarcts in the basal ganglia and thalami bilaterally, left vaughn, and bilateral cerebellum. Severe chronic microvascular changes of the white matter. Moderate brain volume loss. No brain herniation. Patent basilar cisterns. Partially empty sella. Ventricles are proportional to brain volume. No acute osseous abnormality. Lens replacement of the left globe. Atherosclerotic calcifications of the carotid siphons. Scattered dental caries and periapical lucencies. Mastoid air cells and paranasal sinuses are predominately clear. IMPRESSION: No acute intracranial abnormality. Old lacunar infarcts in the basal ganglia, thalami, and cerebellum bilaterally and in the left vaughn. Advanced senescent changes. EXAM: CT ABDOMEN WITHOUT CONTRAST History: Trauma Technique: 2.[address] abdomen without contrast. The exam includes through the acetabular roofs bilaterally. FINDINGS: Emphysema in the otherwise clear lung bases. No significant liver abnormality. The adrenals, pancreas and spleen are unremarkable. The stomach and hiatus are unremarkable.The gallbladder appears normal. Atherosclerotic calcification of the aorta with maximum infrarenal aorta diameter 3.1 cm. Nonobstructing calcifications versus vascular calcifications both kidneys. No hydronephrosis, inflammation or hydroureter. No ascites. The appendix is normal. Bowel loops demonstrate normal caliber. No inflamatory change seen in the mesentery or retroperitoneum. Multiple sigmoid colonic diverticula. No acute findings of the skeleton. Chronic L5 pars interarticularis defects. Impression: 1. No evidence of injury to solid or hollow intra-abdominal viscera by noncont rast CT 2. Possible nonobstructing nephrolithiasis versus vascular calcifications 3. Abdominal aortic aneurysm 3.9 cm 4. No acute findings Lab Results Last 24 Hours: 08/25/24 08:43 WBC 15.39 H RBC 4.33 L Hgb 12.3 L Hct 39.6 L MCV 91.5 MCH 28.4 MCHC 31.1 L RDW Coeff of Katie 13.5 Plt Count 282 Immature Gran % (Auto) 0.6 Neut % (Auto) 90.6 H Lymph % (Auto) 2.3 L [place] % (Auto) 6.3 Eos % (Auto) 0.1 Baso % (Auto) 0.1 Neut # (Auto) 13.9 H Lymph # (Auto) 0.4 L [place] # (Auto) 1.0 Eos # (Auto) 0.0 Baso # (Auto) 0.0 Immature Gran # (Auto) 0.1 Sodium 131.7 L Potassium 4.20 Chloride 92.0 L Carbon Dioxide 25.5 Anion Gap 18.40 BUN 25.7 H Creatinine 1.01 Estimated GFR (MDRD) 72.00 BUN/Creatinine Ratio 25.44 Glucose 279.1 H Calcium 9.29 Total Bilirubin 0.88 AST 41.1 ALT 33.3 Alkaline Phosphatase 69.0 Total Protein 7.26 Albumin 4.12 Globulin 3.14 Albumin/Globulin Ratio 1.31 Discharge Instructions Discharge Planning: Discharge Planning > [address] Ashley Morris. Discharge Medications: Medications at Discharge (Home Meds & RX) Discharge Plan Discharge Discharge Orders: Discharge Patient (ONCE); Ordered 08/25/24 Ordered By: RENETTA EARL Activity Restrictions/Additional Instructions: DISCHARGE TO HOME DX: ACUTE COPD EXACERBATION, FALL, URINARY RETENTION YOU'VE HAD A LOMBARDO CATHETER PLACED DUE TO RETAINING URINE IN YOUR BLADDER MULTIPLE TIMES СЕРГЕЙ LEFT A MESSAGE WITH OUR ANESTHESIOLOGY FELLOW TO MAKE YOU A REFERRAL TO UROLOGY (UROLOGY OFFICES ARE CLOSED TODAY) YOU SHOULD HEAR FROM HER ON WEDNESDAY OR WEDNESDAY PHARMACY: NALLELY YOU'VE BEEN PRESCRIBED STEROIDS AND A NEW PROSTATE MEDICATION CALLED FINASTERIDE [facility] ORDERED Instructions: COPD (Chronic Obstructive Pulmonary Disease) (GEN) Patient Disposition: HOME SELF-CARE Prescriptions: New finasteride 5 mg Tablet 5 mg PO DAILY Qty: 30 0RF prednisone 20 mg tablet 20 mg PO BID 5 Days Qty: 10 0RF Continued clopidogrel 75 mg tablet 75 mg PO QDAY Qty: 90 1RF hydrochlorothiazide 12.5 mg capsule 12.5 mg PO QDAY Qty: 90 1RF losartan 50 mg tablet See Rx Instructions .ROUTE .COMPLEX Qty: 60 5RF Dose Instruction: TAKE ONE TABLET TWICE DAILY Rx Instructions: TAKE ONE TABLET TWICE DAILY amlodipine 5 mg tablet 5 mg PO DAILY Qty: 90 1RF metformin 1,000 mg tablet See Rx Instructions .ROUTE .COMPLEX Qty: 60 2RF Dose Instruction: TAKE ONE TABLET TWICE DAILY WITH MEALS Rx Instructions: TAKE ONE TABLET TWICE DAILY WITH MEALS Januvia 100 mg tablet 100 mg PO QDAY Qty: 30 1RF oxybutynin chloride 10 mg tablet extended release 24hr 10 mg PO DAILY Qty: 30 3RF rosuvastatin 20 mg tablet See Rx Instructions .ROUTE .COMPLEX Qty: 30 3RF Dose Instruction: TAKE ONE TABLET DAILY Rx Instructions: TAKE ONE TABLET DAILY ipratropium-albuterol 0.5 mg-3 mg(2.5 mg base)/3 mL solution for nebulization 3 ml inhalation QID 30 Days Qty: 180 2RF potassium chloride 10 mEq tablet extended release 10 meq PO QDAY Qty: 30 2RF Breztri Aerosphere 160-9-4.8 mcg/actuation HFA aerosol inhaler 2 inh inhalation QAM Qty: 10.7 2RF Rx Instructions: inhale 2 puffs by mouth every morning tamsulosin 0.4 mg capsule 0.4 mg PO DAILY Qty: 90 1RF Did you review [place] ASSIST[employer] PROFESSOR OF EDUCATION for ALL controlled substances?: Not Applicable Discussed opioids are addictive and Narcan is available by prescription or from pharmacy.: No Condition: Stable Referrals: RUSSEL MORRIS MD [Primary Care Provider] - 08/31/24 10:20 am
== END 2024-08-25 13:13 | disposition home or self-care (01) | DRG 189 ==
LOC: ED 23:19 → MEDSURG B 08-23 03:09
PROVIDERS: ADMIT Hospitalist; ATTEND Physician Assistant
DX: R07.89 Other chest pain; Z20.822 Contact with and (suspected) exposure to COVID-19; I71.40 Abdominal aortic aneurysm, without rupture, unspecified; J44.1 Chronic obstructive pulmonary disease with (acute) exacerbation; J96.01 Acute respiratory failure with hypoxia; R32 Unspecified urinary incontinence; N40.0 Benign prostatic hyperplasia without lower urinary tract symptoms; Z86.73 Personal history of transient ischemic attack (TIA), and cerebral infarction without residual deficits; Z79.899 Other long term (current) drug therapy; E78.5 Hyperlipidemia, unspecified; W19.XXXA Unspecified fall, initial encounter; I10 Essential (primary) hypertension; F17.210 Nicotine dependence, cigarettes, uncomplicated; Z51.81 Encounter for therapeutic drug level monitoring; R29.6 Repeated falls; Z79.84 Long term (current) use of oral hypoglycemic drugs; E11.9 Type 2 diabetes mellitus without complications

== ENCOUNTER 2024-09-17 17:00 | Inpatient (IN) ==
[2024-09-17 17:46] LABS: BILIRUBIN,URINE Negative (NEGATIVE); CLARITY,URINE Clear (CLEAR); COLOR,URINE Yellow (YELLOW); GLUCOSE, URINE (UA) Negative (NEGATIVE); KETONES,URINE Negative (NEGATIVE); LEUKOCYTE ESTERASE ,URINE 3+ (NEGATIVE); NITRITE,URINE Positive (NEGATIVE); PROTEIN,URINE 3+ (NEGATIVE); URINE, BLOOD 3+ (NEGATIVE); UROBILINOGEN,URINE 0.2 (0.2)
--- NOTE | 2024-09-17 17:47 | ED.PDOC ---
General ED Provider: Dr. NORMA BARRETT, DO Chief Complaint: Urinary Problem Stated Complaint: 73-year-old gentleman who comes to the emergency department. He has a Walsh in place with no output in the last 24 hours. This was reported by family. The patient himself has no complaint. Appears to be alert and oriented x 3 but also found to be covered in stool on arrival. Very hard of hearing but can answer questions appropriately. Walsh appears to been placed roughly 3 weeks ago for acute urinary retention. At that time no other actions were taken other than a UA and no evidence of infection at least by report. He denies abdominal or chest pain no nausea or vomiting no fever chills Time Seen by Provider: 09/17/24 17:20 Mode of Arrival: Walk-In Information Source: Patient and Family Exam Limitations: Other (Hard of hearing) Primary Care Provider: RUSSEL STEINER MD Nursing and Triage Documentation Reviewed and Agree: Yes What is Opioid Naive?: *Opioid Naive implies the patient is not already taking opioids or not chronically receiving opioids on a daily basis. *PRN dosing is not "usually" associated with tolerance. *Patients are at higher risk of over-sedation and aspiration. What is Opioid Tolerant?: *Opioid Tolerance implies less than the expected response to an opioid. *Acquired tolerance is defined by the patient taking 60mg of oral morphine daily (or equianalgesic dose of another opioid) for 1 week or more. *Often associated with chronic pain. *May take more than usual dose to achieve desired pain control. Review of Systems Review Of Systems Constitutional: Reports No symptoms Eyes: Reports No symptoms Ears, Nose, Mouth, Throat: Reports No symptoms Respiratory: Reports Cough (Chronic); Denies Shortness of Breath or Wheezing Cardiac: Reports No symptoms; Denies Chest pain, Edema, Irregular heart rate, Lightheadedness, Palpitations or Syncope GI: Reports No symptoms : Reports Other (Walsh in place) Musculoskeletal: Reports No symptoms Skin: Reports No symptoms Neurological: Reports No symptoms All Other Systems: Reviewed and Negative REPLACED BY [facility] Medical History Encounter for Medicare annual wellness exam Z00.00 - Encounter for general adult medical examination without abnormal findings (ICD-10) Weight loss, non-intentional R63.4 - Abnormal weight loss (ICD-10) Abnormal stress test R94.39 - Abnormal result of other cardiovascular function study (ICD-10) Hypertension I10 - Essential (primary) hypertension (ICD-10) Contact with and (suspected) exposure to environmental tobacco smoke (acute) (chronic) Z77.22 - Contact with and (suspected) exposure to environmental tobacco smoke (acute) (chronic) (ICD-10) PAD (peripheral artery disease) I73.9 - Peripheral vascular disease, unspecified (ICD-10) Subconjunctival hemorrhage of right eye H11.31 - Conjunctival hemorrhage, right eye (ICD-10) Olecranon bursitis M70.20 - Olecranon bursitis, unspecified elbow (ICD-10) Family History Other No known health problems Social History Smoking and tobacco status: Current every day smoker Tobacco type: cigarettes Alcohol intake: current Alcohol intake frequency: 0-2 drinks per day Alcohol type: beer Substance use type: does not use Special nolberto needs: No Agree to transfusion: Yes Adopted: No Caregiver/support person: No Foster care: No Household members: spouse Housing: house Marital status: M Lives independently: Yes Daycare: no daycare Number of children: 2 service: Yes status: retired intermediate: No Current occupational status: retired History of recent travel: No Do you think of yourself as: straight/heterosexual Current gender identity: male Seatbelt use: always Drives intoxicated or rides with intoxicated 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 Current diet type/program: regular Water heater temperature set < 120 degrees: Yes Working smoke detector in home: No Fire extinguisher in home: No Carbon monoxide detector in home: No Surgical History H/O vasectomy Z98.52 - Vasectomy status (ICD-10) Physical Exam Physical Exam Appearance: Reports Well-appearing; Denies Well-nourished (Thin) Eyes: Reports VERNON and Conjunctiva clear ENT: Reports Nose normal and Oropharynx normal Neck: Supple Respiratory: Reports Airway patent, Respirations nonlabored and Crackles (Diffuse scattered crackles) Cardiovascular: Reports RRR and Pulses normal GI/: Reports Soft, Nontender and No masses Musculoskeletal: Reports Normal strength and No edema; Denies No calf tenderness Skin: Reports Warm and Dry Neurological: Reports Sensation intact and Motor intact Psychiatric: Reports Affect appropriate Interpretation EKG Interpretation EKG Interpretation By: ED Physician Time of EKG #1: 19:06 Rate: Normal Rhythm: Sinus Ectopy: None ST Segment: Other (Twelve-lead is read by me shortly after obtaining sinus rate of 92 with normal axis and intervals with considerable motion artifact but no obvious T wave abnormalities) Re-Evaluation Re-Evaluation Time of Re-Evaluation: 18:37 Appearance: Other (Mild respiratory distress) Skin: Warm and Dry Neuro: Alert and Oriented X3 CV: Other (Patient's map was normal but now starting to trend down with an increase in his heart rate. He is currently getting ceftriaxone for urinary infection but will send lactic cardiac enzymes get an EKG and chest x-ray.) Re-Evaluation Time of Re-Evaluation: 19:05 Status: Improved Vital Signs Stable: Yes Appearance: NAD Skin: Warm and Dry Neuro: Alert and Oriented X3 CV: RRR (Twelve-lead obtained and patient in sinus heart rate is down to 90 blood pressure is improved with IV fluids. However the patient's lactate is coming back at 6. Plan to get an ABG will do a dry scan of his abdomen to make sure there is no obstructive pathology going on. He is already on ceftriaxo) Critical Care Note Critical Care Note Total Critical Care Time (mins): 45 Comments: I During my initial evaluation I found the patient to be critically Ill and in need of my immediate attention to prevent further deterioration of their condition More than one body system was considered at risk with todays visit. The following are the primary systems identified: , GI Resp During the patients ED visit I repeated re-evaluated the patient and their clinical condition reviewed laboratory testing and radiology images and intervening when needed. Signs of urosepsis As a result of the patients clinical condition and presenting problem I arranged for admission The total amount of my Critical Care time during the patients course in the ED was a minimum of 45 minutes, this excluded any time spent on other services or procedures Course Course 09/17/24 17:51 09/17/24 19:14 Orders, Labs, Meds: Lab Review 09/17/24 09/17/24 09/17/24 17:40 17:51 19:05 WBC 10.69 H RBC 4.67 L Hgb 13.2 L Hct 41.9 L MCV 89.7 MCH 28.3 MCHC 31.5 L RDW Coeff of Katie 13.2 Plt Count 376 Immature Gran % (Auto) 0.5 Neut % (Auto) 81.4 H Lymph % (Auto) 9.6 L [place] % (Auto) 7.9 Eos % (Auto) 0.5 Baso % (Auto) 0.1 Neut # (Auto) 8.7 H Lymph # (Auto) 1.0 [place] # (Auto) 0.8 Eos # (Auto) 0.1 Baso # (Auto) 0.0 Immature Gran # (Auto) 0.1 Puncture Site Rr Base Excess -1.1 O2 Saturation 96.3 ABG pH 7.43 ABG pCO2 35.0 ABG pO2 82.0 L ABG HCO3 23.2 ABG Total CO2 24.3 H Woodrow Test Pos Hemoglobin 0.6 Oxyhemoglobin 95.8 Carboxyhemoglobin 2.2 H Total Hemoglobin 12.5 O2 Delivery Device Ra FiO2 % 21.0 Sodium Cancelled Potassium Cancelled Chloride Cancelled Carbon Dioxide Cancelled Anion Gap Cancelled BUN Cancelled Creatinine Cancelled Estimated GFR (MDRD) Cancelled BUN/Creatinine Ratio Cancelled Glucose Cancelled Lactic Acid 6.02 H Calcium Cancelled Total Bilirubin Cancelled AST Cancelled ALT Cancelled Alkaline Phosphatase Cancelled Troponin I 0.014 NT-Pro-B Natriuret Pep 340 H Total Protein Cancelled Albumin Cancelled Globulin Cancelled Albumin/Globulin Ratio Cancelled Urine Color Yellow Urine Clarity Clear Urine pH 6.0 Ur Specific Draper 1.025 Urine Protein 3+ H Urine Glucose (UA) Negative Urine Ketones Negative Urine Blood 3+ H Urine Nitrite Positive H Urine Bilirubin Negative Urine Urobilinogen 0.2 Ur Leukocyte Esterase 3+ H Urine Microscopic RBC 5-10 Urine Microscopic WBC 10-20 Ur Squamous Epith Cells 2-5 Urine Bacteria 1+ SARS CoV-2 RNA Rapid MING 09/17/24 09/17/24 19:08 19:14 WBC RBC Hgb Hct MCV MCH MCHC RDW Coeff of Katie Plt Count Immature Gran % (Auto) Neut % (Auto) Lymph % (Auto) [place] % (Auto) Eos % (Auto) Baso % (Auto) Neut # (Auto) Lymph # (Auto) [place] # (Auto) Eos # (Auto) Baso # (Auto) Immature Gran # (Auto) Puncture Site Base Excess O2 Saturation ABG pH ABG pCO2 ABG pO2 ABG HCO3 ABG Total CO2 Woodrow Test Hemoglobin Oxyhemoglobin Carboxyhemoglobin Total Hemoglobin O2 Delivery Device FiO2 % Sodium 131.0 L Potassium 4.95 Chloride 96.8 L Carbon Dioxide 24.6 Anion Gap 14.55 BUN 18.9 Creatinine 1.59 H Estimated GFR (MDRD) 43.00 BUN/Creatinine Ratio 11.88 Glucose 220.7 H Lactic Acid Calcium 8.42 Total Bilirubin 0.52 AST 25.5 ALT 13.0 Alkaline Phosphatase 83.2 Troponin I NT-Pro-B Natriuret Pep Total Protein 6.16 L Albumin 3.21 L Globulin 2.95 Albumin/Globulin Ratio 1.08 Urine Color Urine Clarity Urine pH Ur Specific Draper Urine Protein Urine Glucose (UA) Urine Ketones Urine Blood Urine Nitrite Urine Bilirubin Urine Urobilinogen Ur Leukocyte Esterase Urine Microscopic RBC Urine Microscopic WBC Ur Squamous Epith Cells Urine Bacteria SARS CoV-2 RNA Rapid MING Negative Orders Category Date Time Status PLACE PATIENT OBSERVATION .TO MEDSURG (MONITORED BED ADMISSION 09/17/24 20:57 Active ) ABG DRAW REQUEST Stat CARDIO 09/17/24 18:56 Completed EKG-(ED ONLY) Stat CARDIO 09/17/24 18:35 Completed NEBULIZER TREATMENT Stat CARDIO 09/17/24 18:54 Completed ACTIVITY .Early Mobilization for VTE Prevention CARE 09/17/24 21:07 Active BLOOD GLUCOSE MONITORING (MED/SURG) 0630,1100,1700,2200 CARE 09/17/24 20:57 Active INTAKE & OUTPUT Q8HR CARE 09/17/24 21:07 Active TELEMETRY MONITORING TELE CARE 09/17/24 20:57 Active VITAL SIGNS Q4HR CARE 09/17/24 20:57 Active ADA 1800 LEXI. DIET DIETARY 09/18/24 Breakfast Ordered NOTHING BY MOUTH DIETARY 09/18/24 Breakfast Ordered Bladder Scan [ED BLADDER SCAN] .ONCE EMERGENCY 09/17/24 17:35 Active Walsh [ED CATHETER INSERTION AND CARE] .ONCE EMERGENCY 09/17/24 17:35 Active ABG COOX Stat LAB 09/17/24 19:05 Completed CBC W/ AUTO DIFF Stat LAB 09/17/24 17:51 Completed CBC W/ AUTO DIFF Timed LAB 09/18/24 06:00 Ordered COMPREHENSIVE METABOLIC PANEL Stat LAB 09/17/24 19:14 Completed COMPREHENSIVE METABOLIC PANEL Timed LAB 09/18/24 06:00 Ordered COVID [SARS COV-2 RNA RAPID MING] Stat LAB 09/17/24 19:08 Completed LACTIC ACID Stat LAB 09/17/24 17:51 Completed LACTIC ACID Stat LAB 09/17/24 20:57 Ordered NT-PROBNP(ED) Stat LAB 09/17/24 17:51 Completed TROPONIN I Stat LAB 09/17/24 17:51 Completed UA [URINALYSIS C & S IF INDICATED] Stat LAB 09/17/24 17:40 Completed URINE CULTURE Stat LAB 09/17/24 17:48 Received Acetaminophen [Tylenol] Meds 09/17/24 21:07 Ordered 650 mg PO Q4H PRN Amlodipine Besylate [Norvasc] Meds 09/18/24 09:00 Ordered 5 mg PO DAILY Ceftriaxone 1 gm Vial [Rocephin 1 gm Vial] Meds 09/17/24 17:50 Discontinued 1 gm IVP ONCE ONE Ceftriaxone/D5w 1 gm Premix [Rocephin 1 gm/50 ml D5w] Meds 09/18/24 21:00 Ordered 1 gm in 50 ml IV DAILY Clopidogrel Bisulfate [Plavix] Meds 09/18/24 09:00 Ordered 75 mg PO DAILY Insulin Regular, Human [Humulin R (10Ml)] Meds 09/17/24 21:09 Ordered See Protocol SUBCUT PRN PRN Ipratropium/Albuterol Neb [Duoneb] Meds 09/17/24 18:54 Discontinued 3 ml NEB ONCE STA Losartan Potassium [Cozaar] Meds 09/17/24 21:30 Ordered See Dose Instructions PO .COMPLEX Oxybutynin Chloride [Ditropan Xl] Meds 09/18/24 09:00 Ordered 10 mg PO DAILY Rosuvastatin Calcium [Crestor] Meds 09/17/24 21:30 Ordered See Dose Instructions PO .COMPLEX Sodium Chloride 0.9% [Sodium Chloride] 1,000 ml Meds 09/17/24 18:21 Discontinued IV BOLUS Sodium Chloride 0.9% [Sodium Chloride] 1,000 ml Meds 09/17/24 18:55 Discontinued IV BOLUS Sodium Chloride 0.9% [Sodium Chloride] 1,000 ml Meds 09/17/24 21:00 Ordered IV Q0H Tamsulosin HCl [Flomax] Meds 09/18/24 09:00 Ordered 0.4 mg PO DAILY RESUSCITATION STATUS Routine OTHERS 09/17/24 20:57 Ordered CHEST, 1V AP ONLY Stat RADS 09/17/24 18:[address] ABDOMEN/PELVIS WO CONTRAST Stat RADS 09/17/24 18:55 Completed Medications Generic Name Dose Route Start Last Admin Trade Name Araseli PRN Reason Stop Dose Admin Acetaminophen 650 mg 09/17/24 21:07 Acetaminophen 325 Mg Tablet PO Q4H PRN Mild Pain Amlodipine Besylate 5 mg 09/18/24 09:00 Amlodipine Besylate 5 Mg Tablet PO DAILY YARED Clopidogrel Bisulfate 75 mg 09/18/24 09:00 Clopidogrel Bisulfate 75 Mg Tablet PO DAILY YARED Sodium Chloride 1,000 mls @ 100 mls/hr 09/17/24 21:00 Sodium Chloride IV Q0H YARED CEFTRIAXONE/D5W 1 GM PREMIX 1 gm in 50 mls @ 100 mls/hr 09/18/24 21:00 Rocephin 1 Gm/50 Ml D5w IV 09/21/24 20:59 DAILY YARED Insulin Human Regular 0 unit 09/17/24 21:09 Insulin Regular, Human 100 Unit/Ml (10ml) Vial SUBCUT PRN PRN Hyperglycemia Protocol Losartan Potassium 0 mg 09/17/24 21:30 Losartan Potassium 25 Mg Tablet PO .COMPLEX YARED Oxybutynin Chloride 10 mg 09/18/24 09:00 Oxybutynin Chloride 5 Mg Tab.Er.24 PO DAILY YARED Rosuvastatin Calcium 0 mg 09/17/24 21:30 Rosuvastatin Calcium 10 Mg Tablet PO .COMPLEX YARED Tamsulosin HCl 0.4 mg 09/18/24 09:00 Tamsulosin Hcl 0.4 Mg Cap.Er.24h PO DAILY YARED Discontinued Medications Generic Name Dose Route Start Last Admin Trade Name Araseli PRN Reason Stop Dose Admin Albuterol/Ipratropium 3 ml 09/17/24 18:54 09/17/24 19:27 Ipratropium/Albuterol Vial.Neb NEB 09/17/24 18:55 3 ml ONCE STA Administration Ceftriaxone Sodium 1 gm 09/17/24 17:50 09/17/24 18:27 Ceftriaxone 1 Gm Vial IVP 09/17/24 17:51 1 gm ONCE ONE Administration Sodium Chloride 1,000 mls @ 1,000 mls/hr 09/17/24 18:21 09/17/24 19:47 Sodium Chloride IV 09/17/24 19:20 Infused BOLUS ONE Infusion Sodium Chloride 1,000 mls @ 1,000 mls/hr 09/17/24 18:55 09/17/24 20:50 Sodium Chloride IV 09/17/24 19:54 Infused BOLUS ONE Infusion Vital Signs: Temp Pulse Resp BP Pulse Ox 09/17/24 19:55 88 130/76 97 09/17/24 18:05 97.7 F 105 H 20 98/62 96 Discharge Plan Discharge Patient Disposition: PLACED OBSERVATION Discharge Problem: Acute UTI, Acute kidney injury Sepsis Qualifiers: Sepsis type: sepsis due to unspecified organism Sepsis acute organ dysfunction status: with acute organ dysfunction Severe sepsis acute organ dysfunction type: acute renal failure Acute renal failure type: unspecified Severe sepsis shock status: without septic shock Qualified Code(s): A41.9 - Sepsis, unspecified organism Did you review [place] CORRESPONDENCE ANALYST for ALL controlled substances?: Not Applicable ED Provider: NORMA BARRETT Physician Progress Note: Patient's vital remained stable CT has been read as likely a obstructive uropathy with what appears to be some hydroureter likely secondary to reflux. There is no evidence of stone or anything blocking and now. Also evidence of cystitis. Patient has been given 2 L of normal saline started on 100/h. He does have acute kidney injury. Case discussed with SERVICE STATION CONSOLE OPERATOR hospitalist Armando Tucker who will admit During the patients stay in the Emergency Department, and after a physical exam focused on the patients chief complaint. I have concluded that the patients condition warrants inpatient admission/observation at this time. This decision was made in conjunction with testing done in the ED and after discussing the need for admission with the patient and any family present. This decision was made in conjunction with any testing done, physical exam and information provided by the patient and any family present. I took into consideration discharge but feel that either the patients condition, social supports, access to aftercare, and/or safety justify admission at this time. I have discussed this case with the admitting physician Care was assumed by admitting provider at the time the admission request was placed. I was available for emergencies after that point or if specifically identified here: none This chart was completed using voice recognition dictation software. Please excuse any errors of benefits administrator including grammatical, punctuation and spelling errors. Please contact me with any questions regarding this chart
[2024-09-17 17:48] LABS: BACTERIA,URINE 1+ (NOT PRESENT)
[2024-09-17 17:57] LABS: BASOPHILS % (AUTO) 0.1 % (0.0-3.0); EOSINOPHILS # (AUTO) 0.1 K/ul (0.0-0.7); EOSINOPHILS % (AUTO) 0.5 % (0.0-7.0); HEMATOCRIT 41.9 % (42.0-52.0); HEMOGLOBIN 13.2 g/dl (14.0-18.0); IMMATURE GRANULOCYTE # (AUTO) 0.1 (0.0-1.0); IMMATURE GRANULOCYTE % (AUTO) 0.5 % (0.0-5.0); LYMPHOCYTES % (AUTO) 9.6 (10.0-50.0); MEAN CORPUSCULAR HEMOGLOBIN 28.3 pg (27.0-31.0); MEAN CORPUSCULAR HGB CONC 31.5 (31.8-35.4); MEAN CORPUSCULAR VOLUME 89.7 fl (80.0-94.0); MONOCYTES # (AUTO) 0.8 K/uL (0.4-2.0); MONOCYTES % (AUTO) 7.9 (0-10); NEUTROPHILS # (AUTO) 8.7 K/ul (2.0-6.9); NEUTROPHILS % (AUTO) 81.4 % (42.2-75.2); PLATELET COUNT 376 10^3/uL (140-440); RDW COEFFICIENT OF VARIATION 13.2 % (11.6-14.8); RED BLOOD COUNT 4.67 10^6/ul (4.70-6.10); WHITE BLOOD COUNT 10.69 K/ul (4.2-10.2)
[2024-09-17] MEDS: ROCEPHIN 1 GM VIAL IVP ONE (18:27)
[2024-09-17] MEDS: SODIUM CHLORIDE 1,000 ML IV ONE ×2 (18:28→19:54)
[2024-09-17 19:14] LABS: ABG O2 HGB 95.8 % (95-100); ABG PH 7.43 (7.35-7.45); BEecf -1.1 (-2.0-3.0); COHb 2.2 (0.5-1.5); HCO3 23.2 (21-28); MetHb 0.6 (0-1.5); TCO2 24.3 (19-24); sO2 96.3 % (94-98); tHb 12.5 g/dl (11.7-17.4)
[2024-09-17] MEDS: DUONEB NEB STA (19:27)
[2024-09-17 19:32] LABS: ALBUMIN 3.21 g/dL (3.5-5.0); ALKALINE PHOSPHATASE 83.2 U/L (56-119); ASPARTATE AMINO TRANSFERASE 25.5 U/L (17-59); BILIRUBIN,TOTAL 0.52 mg/dL (0.2-1.3); BLOOD UREA NITROGEN 18.9 mg/dL (9-20); CALCIUM 8.42 mg/dL (8.4-10.2); CARBON DIOXIDE 24.6 mmol/L (22-30.0); CHLORIDE 96.8 mmol/L (98-107); CREATININE 1.59 mg/dL (0.60-1.10); GLUCOSE 220.7 mg/dL (74-106); POTASSIUM 4.95 mmol/L (3.5-5.1); TOTAL PROTEIN 6.16 g/dL (6.3-8.2)
[2024-09-17 19:38] LABS: SARS COV-2 RNA RAPID NAAT NEGATIVE (NEGATIVE)
--- NOTE | 2024-09-17 20:31 | CT ---
EXAM: CT OF THE ABDOMEN AND PELVIS WITHOUT THE CONTRAST COMPARISON: CT abdomen 08/22/2024. CT abdomen pelvis 08/06/2022 HISTORY: Acute urinary retention. Sepsis. TECHNIQUE: Axial CT images were obtained through the abdomen and pelvis without the administration of intravenous contrast. Coronal and sagittal reformatted images were also submitted for interpretatio n. FINDINGS: Liver: Normal morphology. Gallbladder: No gallstones. Bile ducts: No intra or extrahepatic biliary ductal dilatation. Pancreas: No lesions. The main pancreatic duct is not dilated. Calcified granulomas. Spleen: The spleen is not enlarged. Adrenal glands: Thickening of the bilateral adrenal gland; left greater than right likely secondary to adenomatous hyperplasia. Kidneys: No hydronephrosis. Punctate nonobstructing renal calculi. Hemorrhagic/proteinaceous left renal cyst. Ureters: Mild distal bilateral hydroureter likely reflux uropathy. Urinary bladder: Walsh catheter in place. Bladder wall thickening suggestive of cystitis versus blad alirio outlet obstruction. Correlation with urinalysis recommended. Reproductive organs: No pelvic masses. Peritoneum: No ascites or free intraperitoneal air. Gastrointestinal tract: Normal caliber. Small hiatal hernia. Moderate/large fecal burden. Colonic diverticula without evidence of acute diverticulitis. Normal appendix. Rectal wall thickening. Co nsider proctitis versus less likely neoplasm. Clinical correlation advised. Lymph nodes: Left inguinal lymph node measuring up to 1.3 cm in short axis, nonspecific and may be re active. Vessels: Atherosclerosis in the abdominal aorta and branch vessels. Aneurysm of the abdominal aorta measuring up to 3.3 cm. 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 Abdominal wall: Within normal limits. Osseous structures: Degenerative changes. Anterolisthesis of L5 on S1 measuring 0.5 cm. Lower thorax: Emphysematous changes. Calcified granulomas. Mild bronchiectasis and peribronchial th ickening suggestive of small airways disease whether infectious or inflammatory. Aneurysm of the linda cending thoracic aorta measuring 3.2 cm IMPRESSION: - Lack of IV contrast limits the evaluation of IV contrast limits the evaluation for infectious and n eoplastic processes. Study is limited motion artifact. - Walsh catheter in place. Bladder wall thickening suggestive of cystitis versus bladder outlet obst ruction. Correlation with urinalysis recommended. : Mild distal bilateral hydroureter likely reflux uropathy. - Punctate nonobstructing renal calculi. Hemorrhagic/proteinaceous left renal cyst. - Colonic diverticula without evidence of acute diverticulitis. Normal appendix. Small hiatal herni a. Moderate/large fecal burden. - Rectal wall thickening. Consider proctitis versus less likely neoplasm. Clinical correlation advi sed. - Thickening of the bilateral adrenal gland; left greater than right likely secondary to adenomatous hyperplasia. - Atherosclerosis in the abdominal aorta and branch vessels. Aneurysm of the abdominal aorta measuri ng up to 3.[address] scans are performed using dose optimization techniques as appropriate to the performed exam an d include at least one of the following: Automated exposure control, adjustment of the mA and/or kV according t o size, and the use of iterative reconstruction technique.
--- NOTE | 2024-09-17 20:34 | DI ---
EXAM: CHEST RADIOGRAPH TECHNIQUE: Single frontal chest radiograph. HISTORY: Cough. COMPARISON: 08/23/2024. FINDINGS: Benign calcified granulomas bilaterally. Hyperinflation consistent with emphysema. Lungs are otherw ise clear. The heart size is normal. There is calcification in the aorta consistent with atherosclerosis. There is no pleural effusion. There is no pneumothorax. IMPRESSION: 1. Old calcified granulomatous disease. 2. Emphysema. 3. Atherosclerosis. 4. Otherwise unremarkable chest radiograph.
[2024-09-17] MEDS ORDERED: TYLENOL PO PRN (21:07)
[2024-09-17] MEDS: SODIUM CHLORIDE 1,000 ML IV SCH ×2 (22:31→22:45)
[2024-09-17 23:21] VITALS: BMI 15.8
[2024-09-18 05:36] LABS: ALANINE AMINOTRANSFERASE 10.2 U/L (0-50); ALBUMIN 2.89 g/dL (3.5-5.0); ALKALINE PHOSPHATASE 77.3 U/L (56-119); ASPARTATE AMINO TRANSFERASE 24.2 U/L (17-59); BILIRUBIN,TOTAL 0.49 mg/dL (0.2-1.3); BLOOD UREA NITROGEN 15.7 mg/dL (9-20); CALCIUM 8.2 mg/dL (8.4-10.2); CARBON DIOXIDE 26.6 mmol/L (22-30.0); CHLORIDE 100.6 mmol/L (98-107); CREATININE 1.36 mg/dL (0.60-1.10); GLUCOSE 159.7 mg/dL (74-106); POTASSIUM 4.43 mmol/L (3.5-5.1); SODIUM 133.4 mmol/L (134.5-145); TOTAL PROTEIN 5.69 g/dL (6.3-8.2)
[2024-09-18 05:40] LABS: BASOPHILS % (AUTO) 0.1 % (0.0-3.0); EOSINOPHILS # (AUTO) 0.1 K/ul (0.0-0.7); EOSINOPHILS % (AUTO) 1.6 % (0.0-7.0); HEMOGLOBIN 11.2 g/dl (14.0-18.0); IMMATURE GRANULOCYTE # (AUTO) 0.1 (0.0-1.0); IMMATURE GRANULOCYTE % (AUTO) 0.8 % (0.0-5.0); LYMPHOCYTES # (AUTO) 2.3 K/uL (0.60-3.4); LYMPHOCYTES % (AUTO) 30.7 (10.0-50.0); MEAN CORPUSCULAR HEMOGLOBIN 29.2 pg (27.0-31.0); MEAN CORPUSCULAR HGB CONC 32.3 (31.8-35.4); MEAN CORPUSCULAR VOLUME 90.6 fl (80.0-94.0); MONOCYTES # (AUTO) 0.9 K/uL (0.4-2.0); MONOCYTES % (AUTO) 12.5 (0-10); NEUTROPHILS # (AUTO) 4.1 K/ul (2.0-6.9); NEUTROPHILS % (AUTO) 54.3 % (42.2-75.2); PLATELET COUNT 300 10^3/uL (140-440); RDW COEFFICIENT OF VARIATION 13.1 % (11.6-14.8); RED BLOOD COUNT 3.83 10^6/ul (4.70-6.10); WHITE BLOOD COUNT 7.53 K/ul (4.2-10.2)
[2024-09-18 05:42] LABS: HEMATOCRIT 34.7 % (42.0-52.0)
[2024-09-18] MEDS: ROCEPHIN 1 GM/50 ML D5W 1 GM/50 ML BAG IV SCH (08:26)
[2024-09-18] MEDS: CRESTOR PO SCH (08:27)
[2024-09-18] MEDS: NORVASC PO SCH (08:27)
[2024-09-18] MEDS: FLOMAX PO SCH (08:28)
[2024-09-18] MEDS: DITROPAN XL PO SCH (08:28)
[2024-09-18] MEDS: COZAAR PO SCH (08:29)
[2024-09-18] MEDS: PLAVIX PO SCH (08:29)
--- NOTE | 2024-09-18 10:41 | PCM ---
Date of Service Date Seen by Provider: 09/18/24 Time Seen by Provider: 08:45 Admit Day/Time Admission Date: 09/17/24 Admission Time: 20:57 Reason for Admission Chief Complaint: UROSEPSIS, TOBIN Hospital Provider Hospital Provider[facility] Physician Primary Care Physician: RUSSEL MORRIS MD History of Present Illness History of Present Illness: Patient is a 73 year old male from home with pmhx of CVA, COPD, BPH, hyperlipidemia, diabetes type 2, hypertension who presented to the ER for no urine output in rod for 24 hours. Patient unable to provide details of this. HE was hospitalized in late July for COPD related symptoms but found to have recurrent urine retention despite straight caths. He was discharged with a rod, finasteride, and urology referral. However he reportedly refused to see urology and wouldn't make an apt when they called. He followed up with PCP on 08/31 wanting the rod taken out. He went to ER on 09/01 due to urinary retention and rod was replaced. He has since done ok until yesterday. He was noted to have UTI on UA. He was started on rocephin. Also noted to have TOBIN. CT showing cystitis vs bladder outlet obstruction and possible proctitis. Patient also noted by nursing to have feces on his lower extremities/feet/ etc. Patient lives with and son. When asked if son helps them he just replies "nope." Patient admitted to med surg for uti, tobin, urinary retention. Nursing called patient's pharmacy who reports he filled 1 tablet of finasteride only following hospitalization in July (he was prescribed 30 tablets). No further explanation given. Case Discussed With Case Discussed With: Patient's case was discussed with the ER Physicians, Dr. Mak. [facility] Medical History Encounter for Medicare annual wellness exam Z00.00 - Encounter for general adult medical examination without abnormal findings (ICD-10) Weight loss, non-intentional R63.4 - Abnormal weight loss (ICD-10) Abnormal stress test R94.39 - Abnormal result of other cardiovascular function study (ICD-10) Hypertension I10 - Essential (primary) hypertension (ICD-10) Contact with and (suspected) exposure to environmental tobacco smoke (acute) (chronic) Z77.22 - Contact with and (suspected) exposure to environmental tobacco smoke (acute) (chronic) (ICD-10) PAD (peripheral artery disease) I73.9 - Peripheral vascular disease, unspecified (ICD-10) Subconjunctival hemorrhage of right eye H11.31 - Conjunctival hemorrhage, right eye (ICD-10) Olecranon bursitis M70.20 - Olecranon bursitis, unspecified elbow (ICD-10) Surgical History H/O vasectomy Z98.52 - Vasectomy status (ICD-10) Family History Other No known health problems Social History Smoking and tobacco status: Current every day smoker Tobacco type: cigarettes Smoking packs per day: 1.5 Smoking cigarettes per day: 30.0 Alcohol intake: current Alcohol intake frequency: 0-2 drinks per day Alcohol type: beer Substance use type: does not use Special nolberto needs: No Agree to transfusion: Yes Adopted: No Caregiver/support person: No Foster care: No Household members: spouse Housing: house Marital status: M Lives independently: Yes Daycare: no daycare Number of children: 2 service: Yes status: retired group home: No Current occupational status: retired History of recent travel: No Do you think of yourself as: straight/heterosexual Current gender identity: male Seatbelt use: always Drives intoxicated or rides with intoxicated commercial driver's license driver: No Current diet type/program: regular Water heater temperature set < 120 degrees: Yes Working smoke detector in home: No Fire extinguisher in home: No Carbon monoxide detector in home: No Allergies Allergies Allergy/AdvReac Type Severity Reaction Status Date / Time No Known Allergies Allergy Verified 09/17/24 18:00 Current Medications Home Medications hydrochlorothiazide 12.5 mg capsule 12.5 mg PO QDAY #90 caps 02/14/24 [Rx Confirmed 09/17/24 Last Taken 09/17/24] losartan 50 mg tablet See Rx Instructions .Route .COMPLEX #60 tabs 03/13/24 [Rx Confirmed 09/17/24 Last Taken 09/17/24] amlodipine 5 mg tablet 5 mg PO DAILY #90 tabs 04/26/24 [Rx Confirmed 09/17/24 Last Taken 09/17/24] metformin 1,000 mg tablet See Rx Instructions .Route .COMPLEX #60 tabs 05/01/24 [Rx Confirmed 09/17/24 Last Taken 09/17/24] oxybutynin chloride 10 mg tablet,extended release 24 hr 10 mg PO DAILY #30 tabs 07/13/24 [Rx Confirmed 09/17/24 Last Taken 09/17/24] rosuvastatin 20 mg tablet See Rx Instructions .Route .COMPLEX #30 tabs 08/07/24 [Rx Confirmed 09/17/24 Last Taken 09/17/24] clopidogrel 75 mg tablet 75 mg PO DAILY #90 tabs 09/05/24 [Rx Confirmed 09/17/24 Last Taken 09/17/24] tamsulosin 0.4 mg capsule 0.8 mg PO BEDTIME 09/18/24 [History Confirmed 09/18/24 Last Taken 09/17/24] Home Acetaminophen (Acetaminophen 325 Mg Tablet) 650 mg PO Q4H PRN PRN Reason: Mild Pain Amlodipine Besylate (Amlodipine Besylate 5 Mg Tablet) 5 mg PO DAILY [facility] Last Admin: 09/18/24 08:27 Dose: 5 mg Clopidogrel Bisulfate (Clopidogrel Bisulfate 75 Mg Tablet) 75 mg PO DAILY [facility] Last Admin: 09/18/24 08:29 Dose: 75 mg Enoxaparin Sodium (Enoxaparin Sodium 40 Mg/0.4 Ml Syr) 40 mg SUBCUT DAILY [facility] Finasteride (Finasteride 5 Mg Tablet) 5 mg PO DAILY [facility] CEFTRIAXONE/D5W 1 GM PREMIX (Rocephin 1 Gm/50 Ml D5w) 1 gm in 50 mls @ 100 mls/hr IV DAILY [facility] Stop: 09/21/24 08:59 Last Admin: 09/18/24 08:26 Dose: 100 mls/hr Sodium Chloride (Sodium Chloride) 1,000 mls @ 100 mls/hr IV Q10H [facility] Last Admin: 09/18/24 08:42 Dose: 100 mls/hr Insulin Human Regular (Insulin Regular, Human 100 Unit/Ml (10ml) Vial) 0 unit SUBCUT PRN PRN; Protocol PRN Reason: Hyperglycemia Losartan Potassium (Losartan Potassium 25 Mg Tablet) 50 mg PO BID [facility] Last Admin: 09/18/24 08:29 Dose: 50 mg Rosuvastatin Calcium (Rosuvastatin Calcium 10 Mg Tablet) 20 mg PO DAILY [facility] Last Admin: 09/18/24 08:27 Dose: 20 mg Tamsulosin HCl (Tamsulosin Hcl 0.4 Mg Cap.Er.24h) 0.8 mg PO BEDTIME [facility] Tamsulosin HCl (Tamsulosin Hcl 0.4 Mg Cap.Er.24h) 0.4 mg PO ONCE ONE Stop: 09/18/24 21:01 Discontinued Medications Albuterol/Ipratropium (Ipratropium/Albuterol Vial.Neb) 3 ml NEB ONCE STA Stop: 09/17/24 18:55 Last Admin: 09/17/24 19:27 Dose: 3 ml Ceftriaxone Sodium (Ceftriaxone 1 Gm Vial) 1 gm IVP ONCE ONE Stop: 09/17/24 17:51 Last Admin: 09/17/24 18:27 Dose: 1 gm Finasteride (Finasteride 5 Mg Tablet) 5 mg PO DAILY [facility] Last Admin: 09/18/24 10:54 Dose: 5 mg Sodium Chloride (Sodium Chloride) 1,000 mls @ 1,000 mls/hr IV BOLUS ONE Stop: 09/17/24 19:20 Last Infusion: 09/17/24 19:47 Dose: Infused Sodium Chloride (Sodium Chloride) 1,000 mls @ 1,000 mls/hr IV BOLUS ONE Stop: 09/17/24 19:54 Last Infusion: 09/17/24 20:50 Dose: Infused Sodium Chloride (Sodium Chloride) 1,000 mls @ 100 mls/hr IV Q0H [facility] Last Infusion: 09/18/24 08:37 Dose: Infused Oxybutynin Chloride (Oxybutynin Chloride 5 Mg Tab.Er.24) 10 mg PO DAILY [facility] Last Admin: 09/18/24 08:28 Dose: 10 mg Tamsulosin HCl (Tamsulosin Hcl 0.4 Mg Cap.Er.24h) 0.4 mg PO DAILY [facility] Last Admin: 09/18/24 08:28 Dose: 0.4 mg Opioid Naive vs. Tolerant Does Patient Take Opioids?: No Is Patient Opioid Naive?: Yes What is Opioid Naive?: *Opioid Naive implies the patient is not already taking opioids or not chronically receiving opioids on a daily basis. *PRN dosing is not "usually" associated with tolerance. *Patients are at higher risk of over-sedation and aspiration. Is Patient Opioid Tolerant?: No What is Opioid Tolerant?: *Opioid Tolerance implies less than the expected response to an opioid. *Acquired tolerance is defined by the patient taking 60mg of oral morphine daily (or equianalgesic dose of another opioid) for 1 week or more. *Often associated with chronic pain. *May take more than usual dose to achieve desired pain control. Review of Systems Constitutional: Reports Weakness; Denies Fever or Fatigue Head: Reports Normocephalic and Atraumatic Cardiovascular: Denies Chest pain Respiratory: Denies Cough or Shortness of air Gastrointestinal: Denies Nausea, Vomiting, Diarrhea, Abdominal pain or Melena Genitourinary: Reports Other (+urinary retention ) Dermatologic: Denies Rashes Physical examination Most Recent Vital Signs: Most Recent Vital Signs Temperature 97.8 F 09/18/24 09:57 Temperature Source Temporal Artery Scan 09/18/24 09:57 Temperature Source Temporal Artery Scan 09/17/24 18:05 Pulse Rate 80 09/18/24 09:57 Respiratory Rate 20 09/18/24 09:57 Blood Pressure 114/67 09/18/24 09:57 Blood Pressure Mean 82 09/18/24 09:57 Blood Pressure Right Arm 104/65 09/17/24 22:16 Blood Pressure Location Right Arm 09/18/24 09:57 Blood Pressure Position Sitting 09/18/24 09:57 O2 Sat by Pulse Oximetry 95 09/18/24 09:57 Oxygen Delivery Method Room Air 09/18/24 09:57 Height 6 ft 09/18/24 09:35 Weight 53 kg 09/18/24 09:35 Telemetry Type Remote Telemetry 09/18/24 07:00 Telemetry Monitoring Continues 09/18/24 07:00 Telemetry Heart Rate 62 09/18/24 07:00 Telemetry SPO2 90 L 08/24/24 13:00 EKG [place] Interval 0.16 09/18/24 07:00 EKG QRS Interval 0.06 09/18/24 07:00 Telemetry Strip Reading SR 09/18/24 07:00 Appearance: Positive No Apparent Distress, Alert and Oriented x3 and Other (+very hard of hearing. Frail, thin. ) Skin: Positive [place], Warm and Good Turgor HEENT: Positive Normocephalic and Atraumatic Neck: Positive Supple and Midline Trachea Chest/Lungs: Positive Clear to Auscultation Bilaterally; Negative Rales, Rhonci or Wheezes Heart: Positive RRR GI/: Positive Soft, Nontender, Bowel Sounds Normal and No Distention Extremities: Negative Edema Neurological: Positive Cranial Nerves Intact, Alert and Oriented Psychiatric: Positive Oriented x4, Appropriate Mood and Appropriate Affect Labs This Visit Labs This Visit: Labs This Visit 09/17/24 09/17/24 09/17/24 17:40 17:51 19:05 WBC 10.69 H RBC 4.67 L Hgb 13.2 L Hct 41.9 L MCV 89.7 MCH 28.3 MCHC 31.5 L RDW Coeff of Katie 13.2 Plt Count 376 Immature Gran % (Auto) 0.5 Neut % (Auto) 81.4 H Lymph % (Auto) 9.6 L [place] % (Auto) 7.9 Eos % (Auto) 0.5 Baso % (Auto) 0.1 Neut # (Auto) 8.7 H Lymph # (Auto) 1.0 [place] # (Auto) 0.8 Eos # (Auto) 0.1 Baso # (Auto) 0.0 Immature Gran # (Auto) 0.1 Puncture Site Rr Base Excess -1.1 O2 Saturation 96.3 ABG pH 7.43 ABG pCO2 35.0 ABG pO2 82.0 L ABG HCO3 23.2 ABG Total CO2 24.3 H [place] Test Pos Hemoglobin 0.6 Oxyhemoglobin 95.8 Carboxyhemoglobin 2.2 H Total Hemoglobin 12.5 O2 Delivery Device Ra FiO2 % 21.0 Sodium Cancelled Potassium Cancelled Chloride Cancelled Carbon Dioxide Cancelled Anion Gap Cancelled BUN Cancelled Creatinine Cancelled Estimated GFR (MDRD) Cancelled BUN/Creatinine Ratio Cancelled Glucose Cancelled Lactic Acid 6.02 H Calcium Cancelled Total Bilirubin Cancelled AST Cancelled ALT Cancelled Alkaline Phosphatase Cancelled Troponin I 0.014 NT-Pro-B Natriuret Pep 340 H Total Protein Cancelled Albumin Cancelled Globulin Cancelled Albumin/Globulin Ratio Cancelled Urine Color Yellow Urine Clarity Clear Urine pH 6.0 Ur Specific [place] 1.025 Urine Protein 3+ H Urine Glucose (UA) Negative Urine Ketones Negative Urine Blood 3+ H Urine Nitrite Positive H Urine Bilirubin Negative Urine Urobilinogen 0.2 Ur Leukocyte Esterase 3+ H Urine Microscopic RBC 5-10 Urine Microscopic WBC 10-20 Ur Squamous Epith Cells 2-5 Urine Bacteria 1+ SARS CoV-2 RNA Rapid MING 09/17/24 09/17/24 09/17/24 19:08 19:14 21:07 WBC RBC Hgb Hct MCV MCH MCHC RDW Coeff of Katie Plt Count Immature Gran % (Auto) Neut % (Auto) Lymph % (Auto) [place] % (Auto) Eos % (Auto) Baso % (Auto) Neut # (Auto) Lymph # (Auto) [place] # (Auto) Eos # (Auto) Baso # (Auto) Immature Gran # (Auto) Puncture Site Base Excess O2 Saturation ABG pH ABG pCO2 ABG pO2 ABG HCO3 ABG Total CO2 [place] Test Hemoglobin Oxyhemoglobin Carboxyhemoglobin Total Hemoglobin O2 Delivery Device FiO2 % Sodium 131.0 L Potassium 4.95 Chloride 96.8 L Carbon Dioxide 24.6 Anion Gap 14.55 BUN 18.9 Creatinine 1.59 H Estimated GFR (MDRD) 43.00 BUN/Creatinine Ratio 11.88 Glucose 220.7 H Lactic Acid 1.83 Calcium 8.42 Total Bilirubin 0.52 AST 25.5 ALT 13.0 Alkaline Phosphatase 83.2 Troponin I NT-Pro-B Natriuret Pep Total Protein 6.16 L Albumin 3.21 L Globulin 2.95 Albumin/Globulin Ratio 1.08 Urine Color Urine Clarity Urine pH Ur Specific [place] Urine Protein Urine Glucose (UA) Urine Ketones Urine Blood Urine Nitrite Urine Bilirubin Urine Urobilinogen Ur Leukocyte Esterase Urine Microscopic RBC Urine Microscopic WBC Ur Squamous Epith Cells Urine Bacteria SARS CoV-2 RNA Rapid MING Negative 09/18/24 05:10 WBC 7.53 RBC 3.83 L Hgb 11.2 L Hct 34.7 L D MCV 90.6 MCH 29.2 MCHC 32.3 RDW Coeff of [place] 13.1 Plt Count 300 Immature Gran % (Auto) 0.8 Neut % (Auto) 54.3 Lymph % (Auto) 30.7 [place] % (Auto) 12.5 H Eos % (Auto) 1.6 Baso % (Auto) 0.1 Neut # (Auto) 4.1 Lymph # (Auto) 2.3 [place] # (Auto) 0.9 Eos # (Auto) 0.1 Baso # (Auto) 0.0 Immature Gran # (Auto) 0.1 Puncture Site Base Excess O2 Saturation ABG pH ABG pCO2 ABG pO2 ABG HCO3 ABG Total CO2 [place] Test Hemoglobin Oxyhemoglobin Carboxyhemoglobin Total Hemoglobin O2 Delivery Device FiO2 % Sodium 133.4 L Potassium 4.43 Chloride 100.6 Carbon Dioxide 26.6 Anion Gap 10.63 BUN 15.7 Creatinine 1.36 H Estimated GFR (MDRD) 51.00 BUN/Creatinine Ratio 11.54 Glucose 159.7 H D Lactic Acid Calcium 8.20 L Total Bilirubin 0.49 AST 24.2 ALT 10.2 Alkaline Phosphatase 77.3 Troponin I NT-Pro-B Natriuret Pep Total Protein 5.69 L Albumin 2.89 L Globulin 2.80 Albumin/Globulin Ratio 1.03 Urine Color Urine Clarity Urine pH Ur Specific [place] Urine Protein Urine Glucose (UA) Urine Ketones Urine Blood Urine Nitrite Urine Bilirubin Urine Urobilinogen Ur Leukocyte Esterase Urine Microscopic RBC Urine Microscopic WBC Ur Squamous Epith Cells Urine Bacteria SARS CoV-2 RNA Rapid MING Microbiology This Visit 09/17/24 17:48 Urine,Random Urine Culture - Preliminary Imaging Imaging: EXAM: CT OF THE ABDOMEN AND PELVIS WITHOUT THE CONTRAST COMPARISON: CT abdomen 08/22/2024. CT abdomen pelvis 08/06/2022 HISTORY: Acute urinary retention. Sepsis. TECHNIQUE: Axial CT images were obtained through the abdomen and pelvis without the administration of intravenous contrast. Coronal and sagittal reformatted images were also submitted for interpretation. FINDINGS: Liver: Normal morphology. Gallbladder: No gallstones. Bile ducts: No intra or extrahepatic biliary ductal dilatation. Pancreas: No lesions. The main pancreatic duct is not dilated. Calcified granulomas. Spleen: The spleen is not enlarged. Adrenal glands: Thickening of the bilateral adrenal gland; left greater than right likely secondary to adenomatous hyperplasia. Kidneys: No hydronephrosis. Punctate nonobstructing renal calculi. Hemorrhagic/proteinaceous left renal cyst. Ureters: Mild distal bilateral hydroureter likely reflux uropathy. Urinary bladder: Rod catheter in place. Bladder wall thickening suggestive of cystitis versus bladder outlet obstruction. Correlation with urinalysis recommended. Reproductive organs: No pelvic masses. Peritoneum: No ascites or free intraperitoneal air. Gastrointestinal tract: Normal caliber. Small hiatal hernia. Moderate/large fecal burden. Colonic diverticula without evidence of acute diverticulitis. Normal appendix. Rectal wall thickening. Consider proctitis versus less likely neoplasm. Clinical correlation advised. Lymph nodes: Left inguinal lymph node measuring up to 1.3 cm in short axis, nonspecific and may be reactive. Vessels: Atherosclerosis in the abdominal aorta and branch vessels. Aneurysm of the abdominal aorta measuring up to 3.3 cm. 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 Abdominal wall: Within normal limits. Osseous structures: Degenerative changes. Anterolisthesis of L5 on S1 measuring 0.5 cm. Lower thorax: Emphysematous changes. Calcified granulomas. Mild bronchiec tasis and peribronchial thickening suggestive of small airways disease whether infectious or inflammatory. Aneurysm of the descending thoracic aorta measuring 3.2 cm IMPRESSION: - Lack of IV contrast limits the evaluation of IV contrast limits the evaluation for infectious and neoplastic processes. Study is limited motion artifact. - Rod catheter in place. Bladder wall thickening suggestive of cystitis versus bladder outlet obstruction. Correlation with urinalysis recommended. : Mild distal bilateral hydroureter likely reflux uropathy. - Punctate nonobstructing renal calculi. Hemorrhagic/proteinaceous left renal cyst. - Colonic diverticula without evidence of acute diverticulitis. Normal appendix. Small hiatal hernia. Moderate/large fecal burden. - Rectal wall thickening. Consider proctitis versus less likely neoplasm. Clinical correlation advised. - Thickening of the bilateral adrenal gland; left greater than right likely secondary to adenomatous hyperplasia. - Atherosclerosis in the abdominal aorta and branch vessels. Aneurysm of the abdominal aorta measuring up to 3.2 cm. Review Statement Review Statement: I have independently reviewed and interpreted the labs/EKGs/imaging that were ordered by the ER provider. I have reviewed all outside records that are available currently in our EMR including imaging/notes/labs from previous visits. Plan Plan: 1. TOBIN in setting of urinary retention/rod failure and UTI - Improving, fluids given, not yet at baseline. Continue fluids. 2. Urinary retention/rod failure - Pt had 400 out when new rod placed in ER. Pt needs uro follow up, will cont to recommend. Will recommend pt/ot/sn home health. Finasteride restarted, will try to clarify with pharmacy what happened last time. 3. UTI in setting of urinary retention - UA growing gram neg rods, will cont rocephin. Will await culture results due to indwelling catheter. 4. Lactic acidosis - Improved with fluids. 5. Questionable proctitis - Pt has no symptoms. Recommend outpatient scope if patient is willing, will discuss. 6. Hypertension - Cont home meds 7. DMT2 - Diabetic diet. Humalog ss. Accuchecks. 8. Hyperlipidemia - Cont home meds 9. BPH - On flomax and oxybutynin. Restarted finasteride. Update: states they actually went to Dr. Lacy's office last week on 09/12. Medication changes were made. Case management discussed with urology office nurse who states stop oxybutynin, flomax doubled to 0.8 mg daily, and continue finasteride. also questions her ability to care for patient. Seems as though the son at home is not helpful. The urology note obtained mentions at that visit he had feces all down his leg and on his catheter tubing and bag. She initially mentions he needs prison placement but then states she wants to talk with family first. DVT Prophylaxis: Lovenox Time Spent: Greater than 80 minutes spent with patient, 50% of the time spent with this patient was devoted to counseling and coordination of care. [facility] minutes spent discussing advance care planning. Smoking Cessation: 3 minutes spent discussing smoking cessation. Admit to: Flipped to inpatient today Discussed Plan of Care with Dr. Ashley Morris. Medications Medication Orders: Medications Ordered Category Date Time Status Acetaminophen [Tylenol] Meds 09/17/24 21:07 Active 650 mg PO Q4H PRN Amlodipine Besylate [Norvasc] Meds 09/18/24 09:00 Active 5 mg PO DAILY Ceftriaxone/D5w 1 gm Premix [Rocephin 1 gm/50 ml D5w] Meds 09/18/24 09:00 Active 1 gm in 50 ml IV DAILY Clopidogrel Bisulfate [Plavix] Meds 09/18/24 09:00 Active 75 mg PO DAILY Finasteride [Proscar] Meds 09/18/24 10:40 Active 5 mg PO DAILY Insulin Regular, Human [Humulin R (10Ml)] Meds 09/17/24 21:09 Active See Protocol SUBCUT PRN PRN Losartan Potassium [Cozaar] Meds 09/18/24 09:00 Active 50 mg PO BID Oxybutynin Chloride [Ditropan Xl] Meds 09/18/24 09:00 Active 10 mg PO DAILY Rosuvastatin Calcium [Crestor] Meds 09/18/24 09:00 Active 20 mg PO DAILY Sodium Chloride 0.9% [Sodium Chloride] 1,000 ml Meds 09/17/24 23:00 Active IV Q10H Tamsulosin HCl [Flomax] Meds 09/18/24 09:00 Active 0.4 mg PO DAILY
[2024-09-18] MEDS: PROSCAR PO SCH (10:54)
--- NOTE | 2024-09-18 14:14 | RS.PTINEVL ---
Subjective Patient information Date of Evaluation: 09/18/24 Date of Arrival on Unit: 09/17/24 Admitted From:: Home Diagnosis: urosepsis, impaired mobility, acute kidney injury Usual Living Arrangement: With Spouse Living Arrangement Comments: lives with and son Home Environment: House and Level/No stairs Medical History: Hypertension, CVA/TIA, COPD, Diabetes and Arthritis Medical History Comments:: BPH, Medications: see chart Subjective Information/ Patient Comments:: pt reports he lives with and son, but that he doesn't have much help at home. pt also states that he doesn't want to walk but he will. Level of function Prior to this admission, the patient could do the following:: Independent Selfcare, Independent ADL's, Independent Ambulation and Drive Current Level of Function: Partially Dependent Current Equipment Used at Home: NONE Interventions Objective Patient Orientation: Person and Place Current Interventions: IV's, Telemetry and Walsh Catheter Observation: scabbed areas BLE pt very [place] Range of Motion ROM Right Upper Extremity AROM: WFL's Left Upper Extremity AROM: WFL's Right Lower Extremity AROM: WFL's Left Lower Extremity AROM: WFL's Muscle Strength Muscle Strength Right Upper Extremity: Mild Weakness (grossly 4/5) Left Upper Extremity: Mild Weakness (grossly 4/5) Right Lower Extremity: Mild Weakness (hip flex 4-/5, knee flex/ext 4/5, ankle DF/PF 4/5) Left Lower Extremity: Mild Weakness (hip flex 4-/5, knee flex/ext 4/5, ankle DF/PF 4/5) Sensation Sensation Right Upper Extremity: Intact/Normal Left Upper Extremity: Intact/Normal Right Lower Extremity: Intact/Normal Left Lower Extremity: Intact/Normal Palpation Palpation Findings: None/Normal Balance Sitting Balance and Reactions Static Sitting Balance: Good (good-) Dynamic Sitting Balance: Fair Standing Balance and Reactions Static Standing Balance: Poor Dynamic Standing Balance: Poor Functional Mobility Bed Mobility Rolling R/L: CGA Supine to Sit: Supervision and CGA Sit to Supine: CGA Transfers Sit to Stand: CGA Stand to Sit: CGA Safety Awareness Safety Awareness: Poor GERMAN INDEX SCORE: n/a Ambulation Ambulation Assistive Device Used: Rolling Walker Orthotic/Prosthetic Device: No Distance: 140ft Assistance needed with Ambulation: CGA Gait Deviations: Forward posture, Short stride and Deviates from path Ambulation Comments: increased lat sway Factors Affecting Ambulation: Decreased Balance, Weakness, Decreased Coordination, Decreased Safety, Cognitive Status and Limited Endurance Treatment time Units charged Gait trainin Time with patient Length of Evaluation: 19 Total treatment time: 27 Patient Education Education Patient Education: Activity Modification and Education of Plan of Care Teaching Recipient: Patient Teaching Methods: Discussion Comments: discussion regarding POC Assessment Assessment Problem List:: Decreased level of function, Requires training/education, Decreased safety/Risk of falls, Weakness and Cognitive status limits abilities Rehab Potential: Fair Further Therapy Indicated?: Yes Candidate for Swing Bed for Therapy Services?: Feel pt may not be a candidate for swing bed for therapy. Evaluation Complexity: HISTORY: Medium, EXAM OF BODY SYSTEMS: Medium, CLINICAL PRESENTATION: Medium and CLINICAL DECISION MAKING: Medium Patient's Goal(s): Go home Short Term Goals GOAL #1: pt demonstrate rolling and scooting to edge of bed independently. Goal to be met by: 09/20/24 GOAL #2: Transfer sup to/from sit SBA to independent. Goal to be met by: 09/20/24 GOAL #3: Transfer sit to/from stand SBA to CGA Goal to be met by: 09/20/24 GOAL #4: pt amb with rwx 150ft with CGA to SBA Goal to be met by: 09/20/24 GOAL #5: Improve BLE strength 4+/5 Goal to be met by: 09/21/24 Service Coordinator [facility] Facility Goals GOAL #1: Transfer sup to/from sit to/from stand sBA to independent. Goal to be met by: 09/23/24 GOAL #2: pt amb with rwx functional household distances with SBA Goal to be met by: 09/23/24 GOAL #3: Dyn stand balance fair Goal to be met by: 09/23/24 Plan Plan of Care: Therapeutic EX and Therapeutic Activity Other:: Gait training Frequency of Treatment: 1-2 X day, as tolerated Duration of Treatment: 5 days Anticipated Discharge Destination: undetermined Treatment Diagnosis (ICD 10 Codes): R26.2 gait difficulty R 26.81 impaired balance M62.81 weakness Has the Physician been added for Co-signature?: Yes
[2024-09-18] MEDS: HUMULIN R (10ML) SUBCUT PRN (17:00)
[2024-09-18] MEDS: FLOMAX PO ONE (20:19)
[2024-09-19 05:30] VITALS: RESP 20
[2024-09-19 08:31] LABS: BASOPHILS % (AUTO) 0.1 % (0.0-3.0); EOSINOPHILS # (AUTO) 0.1 K/ul (0.0-0.7); EOSINOPHILS % (AUTO) 1.2 % (0.0-7.0); HEMATOCRIT 37.4 % (42.0-52.0); HEMOGLOBIN 11.7 g/dl (14.0-18.0); IMMATURE GRANULOCYTE # (AUTO) 0.1 (0.0-1.0); IMMATURE GRANULOCYTE % (AUTO) 0.7 % (0.0-5.0); LYMPHOCYTES % (AUTO) 29.2 (10.0-50.0); MEAN CORPUSCULAR HEMOGLOBIN 28.5 pg (27.0-31.0); MEAN CORPUSCULAR HGB CONC 31.3 (31.8-35.4); MONOCYTES # (AUTO) 0.8 K/uL (0.4-2.0); MONOCYTES % (AUTO) 11.3 (0-10); NEUTROPHILS % (AUTO) 57.5 % (42.2-75.2); PLATELET COUNT 287 10^3/uL (140-440); RDW COEFFICIENT OF VARIATION 13.4 % (11.6-14.8); RED BLOOD COUNT 4.11 10^6/ul (4.70-6.10); WHITE BLOOD COUNT 6.92 K/ul (4.2-10.2)
[2024-09-19 08:43] LABS: ALANINE AMINOTRANSFERASE 11.6 U/L (0-50); ALBUMIN 3.01 g/dL (3.5-5.0); ALKALINE PHOSPHATASE 84.3 U/L (56-119); ASPARTATE AMINO TRANSFERASE 27.4 U/L (17-59); BILIRUBIN,TOTAL 0.7 mg/dL (0.2-1.3); CALCIUM 8.2 mg/dL (8.4-10.2); CARBON DIOXIDE 26.3 mmol/L (22-30.0); CREATININE 1.05 mg/dL (0.60-1.10); GLUCOSE 207.1 mg/dL (74-106); POTASSIUM 3.9 mmol/L (3.5-5.1); SODIUM 132.4 mmol/L (134.5-145); TOTAL PROTEIN 5.95 g/dL (6.3-8.2)
[2024-09-19] MEDS: LOVENOX SUBCUT SCH (08:45)
--- NOTE | 2024-09-19 09:36 | DCSUM ---
Admission Date Admission Date: 09/17/24 Discharge Date Discharge Date: 09/19/24 Admission Diagnosis Admission Diagnosis: 1. TOBIN in setting of urinary retention/lombardo failure and UTI 2. Urinary retention/lombardo failure 3. UTI in setting of urinary retention Discharge Diagnosis Discharge Diagnosis: 1. TOBIN in setting of urinary retention/lombardo failure and UTI - resolved 2. Urinary retention/lombardo failure - new lombardo placed in ER 3. UTI in setting of urinary retention due to E. Hermannii 4. Lactic acidosis - resolved 5. Questionable proctitis, less likely neoplasm on CT - Consider outpatient scope if patient is willing. 6. Hypertension - Cont home meds 7. DMT2 - Cont home meds 8. Hyperlipidemia - Cont home meds 9. BPH - Cont home meds Hospital Provider Hospital Provider: RENETTA E[facility]L [facility] Physician Primary Care Physician: RUSSEL MORRIS MD Summary of History and Physical Summary of History and Physical: Patient is a 73 year old male from home with pmhx of CVA, COPD, BPH, hyperlipidemia, diabetes type 2, hypertension who presented to the ER for no urine output in lombardo for 24 hours. Patient unable to provide details of this. HE was hospitalized in late July for COPD related symptoms but found to have recurrent urine retention despite straight caths. He was discharged with a lombardo, finasteride, and urology referral. However he reportedly refused to see urology and wouldn't make an apt when they called. He followed up with PCP on 08/31 wanting the lombardo taken out. He went to ER on 09/01 due to urinary retention and lombardo was replaced. He has since done ok until yesterday. He was noted to have UTI on UA. He was started on rocephin. Also noted to have TOBIN. CT showing cystitis vs bladder outlet obstruction and possible proctitis. Patient also noted by nursing to have feces on his lower extremities/feet/ etc. Patient lives with and son. When asked if son helps them he just replies "nope." Patient admitted to med surg for uti, tobin, urinary retention. Nursing called patient's pharmacy who reports he filled 1 tablet of finasteride only following hospitalization in July (he was prescribed 30 tablets). No further explanation given. Hospital Course Subjective: Patient's TOBIN improved. Lombardo replaced in ER and has been draining well. Urine culture resulted e. hermannii sensitive to levaquin. Patient is requesting to go home today. His had brought up intermediate placement yesterday and then after speaking with family has decided against it. Pt has been incontinent of bowel here. He is alert and oriented to person, place, and time but seems to have poor insight into his medical condition. Patient's is having a hard time taking care of him at home. Home health had been ordered recently and evaluated him but then they declined the services. Discussed in great detail how home health is needed at least for long term to change lombardo monthly for him, therefore he is agreeable to that, not therapy though. Discussed importance of following up with urology. Will send another script for finasteride as it seems he has not been taking that and his urology office wants him on that. Also reiterated that his urology office stopped oxybutynin. The did fill the increased dose of flomax prescribed by urology. Will send in 5 more days worth of levaquin for UTI. Of note Ct mentioned rectal wall thickening consider proctitis vs less likely neoplasm. Pt has no symptoms of proctitis. Discussed potential outpatient scope, patient does not express interest in pursuing at this time. Pt is high risk of readmission due to his needs becoming more difficult at home and his is struggling as well. However they decline any further services at this time. Appearance: Pleasant, No Apparent Distress and Other (+thin, frail ) HEENT: MMM and Supple CVS: Other (RRR) Abdomen: Soft, Non-Tender and No Distention Respiratory: No Accessory Muscle Use Extremities: No Edema Vital Signs: Most Recent Vital Signs Temperature 97.6 F 09/19/24 05:29 Temperature Source Temporal Artery Scan 09/19/24 05:29 Temperature Source Temporal Artery Scan 09/17/24 18:05 Pulse Rate 79 09/19/24 05:29 Respiratory Rate 20 09/19/24 05:29 Blood Pressure 124/83 09/19/24 05:29 Blood Pressure Mean 96 09/19/24 05:29 Blood Pressure Right Arm 104/65 09/17/24 22:16 Blood Pressure Location Left Arm 09/19/24 05:29 Blood Pressure Position Supine 09/19/24 05:29 O2 Sat by Pulse Oximetry 96 09/19/24 05:29 Oxygen Delivery Method Room Air 09/19/24 05:29 Height 6 ft 09/18/24 09:35 Weight 53 kg 09/18/24 09:35 Telemetry Type Remote Telemetry 09/19/24 07:00 Telemetry Monitoring Continues 09/19/24 07:00 Telemetry Heart Rate 80 09/19/24 07:00 Telemetry SPO2 90 L 08/24/24 13:00 EKG MO Interval 0.14 09/19/24 07:00 EKG QRS Interval 0.07 09/19/24 07:00 Telemetry Strip Reading SR 09/19/24 07:00 Imaging: EXAM: CT OF THE ABDOMEN AND PELVIS WITHOUT THE CONTRAST COMPARISON: CT abdomen 08/22/2024. CT abdomen pelvis 08/06/2022 HISTORY: Acute urinary retention. Sepsis. TECHNIQUE: Axial CT images were obtained through the abdomen and pelvis without the administration of intravenous contrast. Coronal and sagittal reformatted images were also submitted for interpretation. FINDINGS: Liver: Normal morphology. Gallbladder: No gallstones. Bile ducts: No intra or extrahepatic biliary ductal dilatation. Pancreas: No lesions. The main pancreatic duct is not dilated. Calcified granulomas. Spleen: The spleen is not enlarged. Adrenal glands: Thickening of the bilateral adrenal gland; left greater than right likely secondary to adenomatous hyperplasia. Kidneys: No hydronephrosis. Punctate nonobstructing renal calculi. Hemorrhagic/proteinaceous left renal cyst. Ureters: Mild distal bilateral hydroureter likely reflux uropathy. Urinary bladder: Lombardo catheter in place. Bladder wall thickening suggestive of cystitis versus bladder outlet obstruction. Correlation with urinalysis recommended. Reproductive organs: No pelvic masses. Peritoneum: No ascites or free intraperitoneal air. Gastrointestinal tract: Normal caliber. Small hiatal hernia. Moderate/large fecal burden. Colonic diverticula without evidence of acute diverticulitis. Normal appendix. Rectal wall thickening. Consider proctitis versus less likely neoplasm. Clinical correlation advised. Lymph nodes: Left inguinal lymph node measuring up to 1.3 cm in short axis, nonspecific and may be reactive. Vessels: Atherosclerosis in the abdominal aorta and branch vessels. Aneurysm of the abdominal aorta measuring up to 3.3 cm. 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 Abdominal wall: Within normal limits. Osseous structures: Degenerative changes. Anterolisthesis of L5 on S1 measuring 0.5 cm. Lower thorax: Emphysematous changes. Calcified granulomas. Mild bronchiectasis and peribronchial thickening suggestive of small airways disease whether infectious or inflammatory. Aneurysm of the descending thoracic aorta measuring 3.2 cm IMPRESSION: - Lack of IV contrast limits the evaluation of IV contrast limits the evaluation for infectious and neoplastic processes. Study is limited motion artifact. - Lombardo catheter in place. Bladder wall thickening suggestive of cystitis versus bladder outlet obstruction. Correlation with urinalysis recommended. : Mild distal bilateral hydroureter likely reflux uropathy. - Punctate nonobstructing renal calculi. Hemorrhagic/proteinaceous left renal cyst. - Colonic diverticula without evidence of acute diverticulitis. Normal appendix. Small hiatal hernia. Moderate/large fecal burden. - Rectal wall thickening. Consider proctitis versus less likely neoplasm. Clinical correlation advised. - Thickening of the bilateral adrenal gland; left greater than right likely secondary to adenomatous hyperplasia. - Atherosclerosis in the abdominal aorta and branch vessels. Aneurysm of the abdominal aorta measuring up to 3.2 cm. Lab Results Last 24 Hours: 09/19/24 08:27 WBC 6.92 RBC 4.11 L Hgb 11.7 L Hct 37.4 L MCV 91.0 MCH 28.5 MCHC 31.3 L RDW Coeff of Katie 13.4 Plt Count 287 Immature Gran % (Auto) 0.7 Neut % (Auto) 57.5 Lymph % (Auto) 29.2 [place] % (Auto) 11.3 H Eos % (Auto) 1.2 Baso % (Auto) 0.1 Neut # (Auto) 4.0 Lymph # (Auto) 2.0 [place] # (Auto) 0.8 Eos # (Auto) 0.1 Baso # (Auto) 0.0 Immature Gran # (Auto) 0.1 Sodium 132.4 L Potassium 3.90 Chloride 100.0 Carbon Dioxide 26.3 Anion Gap 10.00 BUN 14.0 Creatinine 1.05 Estimated GFR (MDRD) 69.00 BUN/Creatinine Ratio 13.33 Glucose 207.1 H Calcium 8.20 L Total Bilirubin 0.70 AST 27.4 ALT 11.6 Alkaline Phosphatase 84.3 Total Protein 5.95 L Albumin 3.01 L Globulin 2.94 Albumin/Globulin Ratio 1.02 Discharge Instructions Discharge Planning: Discharge Planning > [address] Ashley Morris. Discharge Medications: Medications at Discharge (Home Meds & RX) Discharge Plan Discharge Discharge Orders: Discharge Patient (ONCE); Ordered 09/19/24 Ordered By: RENETTA EARL Activity Restrictions/Additional Instructions: DISCHARGE TO HOME DX: URINARY RETENTION, UTI PHARMACY: [facility] PRESCRIBED FOR UTI FINISH ANTIBIOTIC NEW SCRIPT FOR FINASTERIDE SENT IN (THIS IS A PROSTATE MEDICATION TO HELP YOU URINATE) [facility] ORDERED TO CHANGE YOUR LOMBARDO ONCE MONTHLY, THIS IS IMPORTANT TO ALLOW THEM TO DO THIS PLEASE MAKE SURE YOU HAVE STOPPED THE OXYBUTYNIN, YOUR UROLOGIST STOPPED THIS MEDICATION LAST WEEK PLEASE KEEP YOU SCHEDULED UROLOGY APPOINTMENT ON 09/21/24 You have been referred to [facility] for monthly nurse visits to monitor and change your catheter. They will be in contact with you to initiate care. If you have any questions or need to speak with them, their contact number is [phone]. Patient is to take Levaquin every 48 hours. 1st dose will be 09/20/24, 2nd dose will be taken on 09/22/24, and 3rd dose will be taken on 09/24/24 Care Plan Goals: Problem: Infection Goal #1: No signs/symptoms of infection Instructions: Monitor for sign/symptoms of infection Monitor temperature Goal #2: White blood cell counts Within Normal Limits Instructions: Obtain labs per physician orders Patient Disposition: HOME SELF-CARE Prescriptions: New finasteride 5 mg Tablet 5 mg PO DAILY Qty: 30 0RF levofloxacin 750 mg tablet 750 mg PO Q48H 5 Days Qty: 3 0RF Rx Instructions: Starting today Continued hydrochlorothiazide 12.5 mg capsule 12.5 mg PO QDAY Qty: 90 1RF losartan 50 mg tablet See Rx Instructions .ROUTE .COMPLEX Qty: 60 5RF Dose Instruction: TAKE ONE TABLET TWICE DAILY Rx Instructions: TAKE ONE TABLET TWICE DAILY amlodipine 5 mg tablet 5 mg PO DAILY Qty: 90 1RF metformin 1,000 mg tablet See Rx Instructions .ROUTE .COMPLEX Qty: 60 2RF Dose Instruction: TAKE ONE TABLET TWICE DAILY WITH MEALS Rx Instructions: TAKE ONE TABLET TWICE DAILY WITH MEALS rosuvastatin 20 mg tablet See Rx Instructions .ROUTE .COMPLEX Qty: 30 3RF Dose Instruction: TAKE ONE TABLET DAILY Rx Instructions: TAKE ONE TABLET DAILY clopidogrel 75 mg tablet 75 mg PO DAILY Qty: 90 1RF tamsulosin 0.4 mg capsule 0.8 mg PO BEDTIME Discontinued oxybutynin chloride 10 mg tablet extended release 24hr 10 mg PO DAILY Qty: 30 3RF Did you review [place] UTILITY BILL COLLECTION CLERK for ALL controlled substances?: Not Applicable Discussed opioids are addictive and Narcan is available by prescription or from pharmacy.: No Condition: Fair Referrals: RUSSEL MORRIS MD [Primary Care Provider] - 09/26/24 11:00 am
[2024-09-19 10:45] VITALS: BP 121/85; PULSE 81; TEMP 97.4
[2024-09-19] MEDS ORDERED: FLOMAX PO SCH (21:00)
[2024-09-20] MEDS ORDERED: PROSCAR PO SCH (09:00)
== END 2024-09-19 12:30 | disposition home or self-care (01) | DRG 683 ==
LOC: MEDSURG B 17:00 → ED 17:00 → MEDSURG B 22:03 → UNDODISOB 09-19 12:30
PROVIDERS: ADMIT Hospitalist; ATTEND Physician Assistant

== ENCOUNTER 2024-10-02 18:33 | Inpatient (IN) ==
--- NOTE | 2024-10-02 18:43 | ED.PDOC ---
General ED Provider: Dr. HUNTER POOLE MD Chief Complaint: Shortness of Air Stated Complaint: short of breath Time Seen by Provider: 10/02/24 18:42 Mode of Arrival: Ambulance Information Source: Patient Exam Limitations: Other (Severe hearing impairment) Primary Care Provider: RUSSEL STEINER MD Nursing and Triage Documentation Reviewed and Agree: Yes Does Patient Take Opioids?: No Is Patient Opioid Naive?: Yes What is Opioid Naive?: *Opioid Naive implies the patient is not already taking opioids or not chronically receiving opioids on a daily basis. *PRN dosing is not "usually" associated with tolerance. *Patients are at higher risk of over-sedation and aspiration. Is Patient Opioid Tolerant?: No What is Opioid Tolerant?: *Opioid Tolerance implies less than the expected response to an opioid. *Acquired tolerance is defined by the patient taking 60mg of oral morphine daily (or equianalgesic dose of another opioid) for 1 week or more. *Often associated with chronic pain. *May take more than usual dose to achieve desired pain control. Cardiovascular Complaint Exam Chest Pain Complaint/Exam Onset: Gradual Duration: 6 to 7 days Symptoms Are: Still present Timing: Intermittent Initial Severity: Moderate Location: Reports Diffuse Pain Radiates: Reports None Character: Reports Tightness and Heaviness Aggravating: Reports Exertion Alleviating: Reports Oxygen and Upright position Associated Signs and Symptoms: Reports Cough and Short of air; Denies Diaphoresis, Nausea, Vomiting, Palpitations, Hemoptysis or Calf pain Related History: Reports Similar episode, Current ARBs, Current Ca Morrison.Jesse, Current Diuretic and Rx noncompliance (??) History of Healthcare-Acquired Pneumonia: Reports Admit w/in last 30 days AMI/ACS Risk Factors: Reports Diabetes, Hypertension and Smoking Prior Care for this Complaint: Yes Diminshed Breath Sounds: Yes Documents Reviewed: Medical records, Labs, Imaging and EKG Patient Advised to Stop Smoking: Yes Review of Systems Review Of Systems Constitutional: Reports Weakness and Loss of appetite; Denies Chills or Fever Eyes: Reports No symptoms Ears, Nose, Mouth, Throat: Reports Other (Severe hearing loss) Respiratory: Reports Cough, Orthopnea, Shortness of Breath and Wheezing Cardiac: Reports No symptoms; Denies Edema, Irregular heart rate or Syncope GI: Reports No symptoms : Reports Other (Recently had Walsh catheter discontinued) Musculoskeletal: Reports Muscle stiffness Neurological: Reports No symptoms Endocrine: Reports No symptoms Hematologic/Lymphatic: Reports No symptoms [facility] Medical History Encounter for Medicare annual wellness exam Z00.00 - Encounter for general adult medical examination without abnormal findings (ICD-10) Weight loss, non-intentional R63.4 - Abnormal weight loss (ICD-10) Abnormal stress test R94.39 - Abnormal result of other cardiovascular function study (ICD-10) Hypertension I10 - Essential (primary) hypertension (ICD-10) Contact with and (suspected) exposure to environmental tobacco smoke (acute) (chronic) Z77.22 - Contact with and (suspected) exposure to environmental tobacco smoke (acute) (chronic) (ICD-10) PAD (peripheral artery disease) I73.9 - Peripheral vascular disease, unspecified (ICD-10) Subconjunctival hemorrhage of right eye H11.31 - Conjunctival hemorrhage, right eye (ICD-10) Olecranon bursitis M70.20 - Olecranon bursitis, unspecified elbow (ICD-10) Family History Other No known health problems Social History Smoking and tobacco status: Current every day smoker Tobacco type: cigarettes Smoking packs per day: 1.5 Smoking cigarettes per day: 30.0 Alcohol intake: current Alcohol intake frequency: 0-2 drinks per day Alcohol type: beer Substance use type: does not use Special nolberto needs: No Agree to transfusion: Yes Adopted: No Caregiver/support person: No Foster care: No Household members: spouse Housing: house Marital status: M Lives independently: Yes Daycare: no daycare Number of children: 2 service: Yes status: retired [employer]: No Current occupational status: retired History of recent travel: No Do you think of yourself as: straight/heterosexual Current gender identity: male Seatbelt use: always 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 Current diet type/program: regular Water heater temperature set < 120 degrees: Yes Working smoke detector in home: No Fire extinguisher in home: No Carbon monoxide detector in home: No Surgical History H/O vasectomy Z98.52 - Vasectomy status (ICD-10) Physical Exam Physical Exam Appearance: Reports Ill-appearing, Thin and Cachectic Ill-appearing: Moderate Pain Distress: None Eyes: Reports VERNON, EOMI and Conjunctiva clear; Denies Conjunctiva inflammed ENT: Reports Ears normal, Nose normal and Oropharynx normal Neck: Supple Respiratory: Reports Airway patent, Breath sounds diminished, Crackles and Wheezes; Denies Rhonchi Cardiovascular: Reports RRR, No murmur and Abnormal pulses GI/: Reports Soft, Nontender, Bowel sounds normal and No Organomegaly Musculoskeletal: Reports No edema, No calf tenderness, Limited ROM and Limited strength Skin: Reports Warm, Dry and Cyanotic Neurological: Reports Alert and Disoriented (?) Psychiatric: Reports Depressed Interpretation EKG Interpretation EKG Interpretation By: ED Physician Rate: Normal Rhythm: Sinus Ectopy: PACs [place]: NL ST Segment: Other (Nonspecific ST-T wave changes) EKG Comparison: No significant changes EKG Interpretation By: ED Physician Radiology Interpretation Radiology Interpretation By: ED Physician Radiology Results: No acute changes Exam Interpreted: Portable CXR Xray Comments: COPD with scarring unchanged. Radiologist reports infiltrate on the right Course Course 10/02/24 19:05 10/02/24 19:05 Orders, Labs, Meds: Lab Review 10/02/24 10/02/24 19:05 20:20 WBC 8.99 RBC 4.17 L Hgb 12.4 L Hct 39.6 L MCV 95.0 H MCH 29.7 MCHC 31.3 L RDW Coeff of Katie 13.4 Plt Count 303 Immature Gran % (Auto) 0.4 Neut % (Auto) 69.4 Lymph % (Auto) 20.8 Eagle % (Auto) 9.0 Eos % (Auto) 0.2 Baso % (Auto) 0.2 Neut # (Auto) 6.2 Lymph # (Auto) 1.9 Eagle # (Auto) 0.8 Eos # (Auto) 0.0 Baso # (Auto) 0.0 Immature Gran # (Auto) 0.0 Sodium 135.6 Potassium 3.60 Chloride 100.8 Carbon Dioxide 26.6 Anion Gap 11.80 BUN 35.8 H Creatinine 1.14 H Estimated GFR (MDRD) 63.00 BUN/Creatinine Ratio 31.40 Glucose 224.4 H Lactic Acid 1.78 Calcium 8.84 Total Bilirubin 1.10 AST 14.7 L ALT 14.4 Alkaline Phosphatase 82.2 Troponin I 0.012 NT-Pro-B Natriuret Pep 480 H Total Protein 6.63 Albumin 3.34 L Globulin 3.29 Albumin/Globulin Ratio 1.01 Plasma/Serum Alcohol < 10.0 Influ A Molecular Assay Positive by naat H Influ B Molecular Assay Negative by naat RSV Antigen Negative by naat SARS CoV-2 RNA Rapid MING Negative Orders Category Date Time Status PLACE PATIENT OBSERVATION .TO MEDSURG (MONITORED BED ADMISSION 10/02/24 20:13 Active ) EKG-(ED ONLY) Stat CARDIO 10/02/24 18:49 Completed NEBULIZER TREATMENT Routine CARDIO 10/02/24 20:27 Ordered ACTIVITY .Up With Assistance CARE 10/02/24 20:22 Active GIVE HS SNACK 2100 CARE 10/02/24 20:22 Active INTAKE & OUTPUT Q8HR CARE 10/02/24 20:22 Active TELEMETRY MONITORING TELE CARE 10/02/24 20:15 Active VITAL SIGNS Q4HR CARE 10/02/24 20:22 Active ADA 1800 LEXI. DIET DIETARY 10/03/24 Breakfast Ordered HS SNACK DIETARY 10/02/24 Dinner Ordered Bladder Scan [ED BLADDER SCAN] .ONCE EMERGENCY 10/02/24 18:52 Active BLOOD CULTURE (ED ONLY) Stat LAB 10/02/24 20:05 Received CBC W/ AUTO DIFF DAILY@0600 LAB 10/03/24 06:00 Ordered CBC W/ AUTO DIFF DAILY@0600 LAB 10/04/24 06:00 Ordered CBC W/ AUTO DIFF Stat LAB 10/02/24 19:05 Completed CMP [COMPREHENSIVE METABOLIC PANEL] Stat LAB 10/02/24 19:05 Completed COMPREHENSIVE METABOLIC PANEL DAILY@0600 LAB 10/03/24 06:00 Ordered COMPREHENSIVE METABOLIC PANEL DAILY@0600 LAB 10/04/24 06:00 Ordered COVID [SARS COV-2 RNA RAPID MING] Stat LAB 10/02/24 20:20 Completed ETOH LEVEL [BLOOD ALCOHOL] Stat LAB 10/02/24 19:05 Completed FLU A/B MOLECULAR Stat LAB 10/02/24 20:20 Completed LACTIC ACID Stat LAB 10/02/24 19:05 Completed NT-PROBNP(ED) Stat LAB 10/02/24 19:05 Completed RSV Stat LAB 10/02/24 20:20 Completed TROPONIN I Stat LAB 10/02/24 19:05 Completed Acetaminophen [Tylenol] Meds 10/02/24 20:22 Active 650 mg PO Q4H PRN Ceftriaxone 1 gm Vial [Rocephin 1 gm Vial] Meds 10/02/24 19:23 Discontinued 2 gm IVP ONCE ONE Ipratropium/Albuterol Neb [Duoneb] Meds 10/02/24 19:23 Discontinued 3 ml NEB ONCE ONE Ipratropium/Albuterol Neb [Duoneb] Meds 10/02/24 20:27 Active 3 ml NEB RTQ4H PRN Levofloxacin/D5w [Levaquin 750 mg/150 ml D5w] Meds 10/02/24 19:23 Discontinued 750 mg in 150 ml IV ONCE Methylprednisolone Sod Succ/Pf [Solu-Medrol 125 mg] 125 Meds 10/02/24 19:23 Discontinued mg 0.9 % Sodium Chloride [Sodium Chloride] 50 ml IV ONCE Methylprednisolone Sod Succ/Pf [Solu-Medrol 40 mg] Meds 10/03/24 09:00 Active 40 mg IVP Q8HR Ondansetron HCl/Pf [Zofran Sdv] Meds 10/02/24 20:22 Active 4 mg IVP Q6H PRN CXR [CHEST, 1V AP ONLY] Stat RADS 10/02/24 18:46 Completed Medications Generic Name Dose Route Start Last Admin Trade Name Freq PRN Reason Stop Dose Admin Acetaminophen 650 mg 10/02/24 20:22 Acetaminophen 325 Mg Tablet PO Q4H PRN Mild Pain Albuterol/Ipratropium 3 ml 10/02/24 20:27 Ipratropium/Albuterol Vial.Neb NEB RTQ4H PRN Wheezing Methylprednisolone Sodium Succinate 40 mg 10/03/24 09:00 Methylprednisolone Sod Succ/Pf 40 Mg/Ml Vial IVP Q8HR YARED Ondansetron HCl 4 mg 10/02/24 20:22 Ondansetron Hcl/Pf 4 Mg/2 Ml Sdv IVP Q6H PRN Nausea / Vomiting Discontinued Medications Generic Name Dose Route Start Last Admin Trade Name Freq PRN Reason Stop Dose Admin Albuterol/Ipratropium 3 ml 10/02/24 19:23 10/02/24 19:53 Ipratropium/Albuterol Vial.Neb NEB 10/02/24 19:24 3 ml ONCE ONE Administration Ceftriaxone Sodium 2 gm 10/02/24 19:23 10/02/24 20:10 Ceftriaxone 1 Gm Vial IVP 10/02/24 19:24 2 gm ONCE ONE Administration Levofloxacin/Dextrose 750 mg in 150 mls @ 100 mls/hr 10/02/24 19:23 Levaquin 750 Mg/150 Ml D5w IV 10/02/24 20:52 ONCE ONE Methylprednisolone Sodium 52 mls @ 100 mls/hr 10/02/24 19:23 10/02/24 20:11 Succinate 125 mg/ Sodium IV 10/02/24 19:55 100 mls/hr Chloride ONCE ONE Administration EXAM: CHEST RADIOGRAPH TECHNIQUE: Single frontal chest radiograph. HISTORY: Dyspnea. COMPARISON: 09/17/2024. FINDINGS: Hyperinflation consistent with emphysema. Multiple calcified granulomas bilaterally. Mild consolidation in the right upper lobe inferiorly consistent with pneumonia. Lungs are otherwise clear. The heart size is normal. Calcification in the aorta. There is no pleural effusion. There is no pneumothorax. IMPRESSION: 1. Mild right upper lobe pneumonia. 2. Emphysema. 3. Old calcified granulomatous disease. 4. Atherosclerosis. 5. Otherwise unremarkable chest radiograph. Dictated By: NAHED WEISS MD Dictated Date/Time: 10/02/24 190 Vital Signs: Temp Pulse Resp BP Pulse Ox 10/02/24 18:34 97.5 F L 88 24 H 150/85 H 96 MALA Risk Score MALA Risk Score: Risk Score Odds of by 30D 0 0.1 (0.1-0.2) 1 0.3 (0.2-0.3) 2 0.4 (0.3-0.5) 3 0.7 (0.6-0.9) 4 1.2 (1.0-1.5) 5 2.2 (1.9-2.6) 6 3.0 (2.5-3.6) 7 4.8 (3.8-6.1) Physician Progress Note: Patient seen after triage. Difficult communication because of severe hearing loss. Complains of being short of breath and cold. Laboratory studies show the patient has been hypoxic in the past but no evidence of hypercapnia. Last admission on 1222 had lactic acidosis that resolved. Medical records reviewed and patient was just here. Radiologist reports right sided infiltrate but I cannot differentiate it from previous studies with scar tissue Bladder scan 86 192-discussed with hospitalist. 2015-I spoke to his daughter. She is aware of the situation. He has been failing for the last year or so. Has lost a substantial amount of weight. Told her a few weeks ago that he was ready to . Patient desires to stay the night. Hospitalist notified. Placed in observation. Discussion with the daughter regarding placement, palliative care, hospice Discharge Plan Discharge Patient Disposition: PLACED OBSERVATION Discharge Problem: Acute and chronic respiratory failure with hypoxia, Nicotine dependence, cigarettes, with unspecified nicotine-induced disorders, Influenza A Pneumonia involving right lung Qualifiers: Pneumonia type: due to unspecified organism Lung location: unspecified part of lung Qualified Code(s): J18.9 - Pneumonia, unspecified organism Type 2 diabetes mellitus with hyperglycemia Qualifiers: Diabetes mellitus intermediate project manager insulin use: without intermediate project manager use Qualified Code(s): E11.65 - Type 2 diabetes mellitus with hyperglycemia Did you review [place] [employer] PROGRAM DIRECTOR for ALL controlled substances?: Not Applicable ED Provider: HUNTER POOLE
--- NOTE | 2024-10-02 19:08 | DI ---
EXAM: CHEST RADIOGRAPH TECHNIQUE: Single frontal chest radiograph. HISTORY: Dyspnea. COMPARISON: 09/17/2024. FINDINGS: Hyperinflation consistent with emphysema. Multiple calcified granulomas bilaterally. Mild consolida tion in the right upper lobe inferiorly consistent with pneumonia. Lungs are otherwise clear. The heart size is normal. Calcification in the aorta. There is no pleural effusion. There is no pneumothorax. IMPRESSION: 1. Mild right upper lobe pneumonia. 2. Emphysema. 3. Old calcified granulomatous disease. 4. Atherosclerosis. 5. Otherwise unremarkable chest radiograph.
[2024-10-02 19:09] LABS: BASOPHILS % (AUTO) 0.2 % (0.0-3.0); EOSINOPHILS % (AUTO) 0.2 % (0.0-7.0); HEMATOCRIT 39.6 % (42.0-52.0); HEMOGLOBIN 12.4 g/dl (14.0-18.0); IMMATURE GRANULOCYTE % (AUTO) 0.4 % (0.0-5.0); LYMPHOCYTES # (AUTO) 1.9 K/uL (0.60-3.4); LYMPHOCYTES % (AUTO) 20.8 (10.0-50.0); MEAN CORPUSCULAR HEMOGLOBIN 29.7 pg (27.0-31.0); MEAN CORPUSCULAR HGB CONC 31.3 (31.8-35.4); MONOCYTES # (AUTO) 0.8 K/uL (0.4-2.0); NEUTROPHILS # (AUTO) 6.2 K/ul (2.0-6.9); NEUTROPHILS % (AUTO) 69.4 % (42.2-75.2); PLATELET COUNT 303 10^3/uL (140-440); RDW COEFFICIENT OF VARIATION 13.4 % (11.6-14.8); RED BLOOD COUNT 4.17 10^6/ul (4.70-6.10); WHITE BLOOD COUNT 8.99 K/ul (4.2-10.2)
[2024-10-02 19:23] LABS: ALANINE AMINOTRANSFERASE 14.4 U/L (0-50); ALBUMIN 3.34 g/dL (3.5-5.0); ALKALINE PHOSPHATASE 82.2 U/L (56-119); ASPARTATE AMINO TRANSFERASE 14.7 U/L (17-59); BLOOD UREA NITROGEN 35.8 mg/dL (9-20); CALCIUM 8.84 mg/dL (8.4-10.2); CARBON DIOXIDE 26.6 mmol/L (22-30.0); CHLORIDE 100.8 mmol/L (98-107); CREATININE 1.14 mg/dL (0.60-1.10); GLUCOSE 224.4 mg/dL (74-106); SODIUM 135.6 mmol/L (134.5-145); TOTAL PROTEIN 6.63 g/dL (6.3-8.2)
[2024-10-02 19:24] LABS: BLOOD ALCOHOL < 10.0 mg/dL (0.0-50.0)
[2024-10-02 19:34] LABS: TROPONIN I 0.012 ng/ml (0.0000-0.120)
[2024-10-02] MEDS: DUONEB NEB ONE (19:53)
[2024-10-02] MEDS ORDERED: SOLU-MEDROL 125 MG ONE (19:58)
[2024-10-02] MEDS: ROCEPHIN 1 GM VIAL IVP ONE (20:10)
[2024-10-02] MEDS: SOLU-MEDROL 125 MG 125 MG in SODIUM CHLORIDE 50 ML IV ONE (20:11)
[2024-10-02] MEDS ORDERED: TYLENOL PO PRN (20:22)
[2024-10-02] MEDS ORDERED: ZOFRAN SDV IVP PRN (20:22)
[2024-10-02 20:49] LABS: MOLECULAR FLU A POSITIVE BY NAAT (NEGATIVE); MOLECULAR FLU B NEGATIVE BY NAAT (NEGATIVE); RSV MOLECULAR NEGATIVE BY NAAT (NEGATIVE); SARS COV-2 RNA RAPID NAAT NEGATIVE (NEGATIVE)
[2024-10-02] MEDS: LEVAQUIN 750 MG/150 ML D5W 750 MG/150 ML BAG IV ONE (21:12)
[2024-10-02 22:11] VITALS: BMI 14.6
[2024-10-02] MEDS: FLOMAX PO SCH (22:26)
[2024-10-02] MEDS: COZAAR PO SCH (22:26)
[2024-10-03 05:37] LABS: EOSINOPHILS % (AUTO) 0.5 % (0.0-7.0); HEMOGLOBIN 11.7 g/dl (14.0-18.0); IMMATURE GRANULOCYTE % (AUTO) 0.5 % (0.0-5.0); LYMPHOCYTES # (AUTO) 0.7 K/uL (0.60-3.4); LYMPHOCYTES % (AUTO) 11.4 (10.0-50.0); MEAN CORPUSCULAR HEMOGLOBIN 28.5 pg (27.0-31.0); MEAN CORPUSCULAR HGB CONC 31.6 (31.8-35.4); MONOCYTES # (AUTO) 0.1 K/uL (0.4-2.0); MONOCYTES % (AUTO) 1.6 (0-10); NEUTROPHILS # (AUTO) 5.4 K/ul (2.0-6.9); PLATELET COUNT 326 10^3/uL (140-440); RDW COEFFICIENT OF VARIATION 13.4 % (11.6-14.8); RED BLOOD COUNT 4.11 10^6/ul (4.70-6.10); WHITE BLOOD COUNT 6.25 K/ul (4.2-10.2)
[2024-10-03 05:45] LABS: ALANINE AMINOTRANSFERASE 14.7 U/L (0-50); ALBUMIN 3.01 g/dL (3.5-5.0); ALKALINE PHOSPHATASE 72.7 U/L (56-119); BILIRUBIN,TOTAL 0.7 mg/dL (0.2-1.3); BLOOD UREA NITROGEN 37.3 mg/dL (9-20); CALCIUM 8.38 mg/dL (8.4-10.2); CARBON DIOXIDE 29.5 mmol/L (22-30.0); CHLORIDE 98.9 mmol/L (98-107); CREATININE 1.05 mg/dL (0.60-1.10); POTASSIUM 4.41 mmol/L (3.5-5.1); SODIUM 135.2 mmol/L (134.5-145); TOTAL PROTEIN 6.14 g/dL (6.3-8.2)
[2024-10-03] MEDS: HYDROCHLOROTHIAZIDE PO SCH (08:18)
[2024-10-03] MEDS: CRESTOR PO SCH (08:18)
[2024-10-03] MEDS: PLAVIX PO SCH (08:18)
[2024-10-03] MEDS: NORVASC PO SCH (08:18)
[2024-10-03] MEDS: PROSCAR PO SCH (08:18)
[2024-10-03] MEDS: SOLU-MEDROL 40 MG IVP SCH (08:20)
[2024-10-03] MEDS: DUONEB NEB PRN (10:26)
--- NOTE | 2024-10-03 11:55 | PCM ---
Date of Service Date Seen by Provider: 10/03/24 Time Seen by Provider: 08:40 Admit Day/Time Admission Date: 10/02/24 Admission Time: 20:13 Reason for Admission Chief Complaint: PNEUMONIA, TYPE 2 DIABETES Hospital Provider Hospital Provider: RENETTA EARL PA-C, [facility] Primary Care Physician: RUSSEL STEINER MD History of Present Illness History of Present Illness: Patient is a 73 year old male from home with pmhx of dmt2, COPD, hx of urinary retention, BPH, hyperlipidemia, cva, hypertension, smoker who presents to ER with worsening SOB. Patient states it has been ongoing for over a week. He denies having a nebulizer at home. Has not tried anything at home. His had tested positive for influenza. In the ER he was noted to have unremarkable labs and vitals, but CXR did show concern for pneumonia. Due to his age and comorbidities, pt was admitted. He was given rocephin and levaquin. Today he states he is feeling somewhat better but doesn't feel he can go home. He states "my can't take care of me like this." Case Discussed With Case Discussed With: Patient's case was discussed with the ER Physicians, Dr. Multani. [facility] Medical History Encounter for Medicare annual wellness exam Z00.00 - Encounter for general adult medical examination without abnormal findings (ICD-10) Weight loss, non-intentional R63.4 - Abnormal weight loss (ICD-10) Abnormal stress test R94.39 - Abnormal result of other cardiovascular function study (ICD-10) Hypertension I10 - Essential (primary) hypertension (ICD-10) Contact with and (suspected) exposure to environmental tobacco smoke (acute) (chronic) Z77.22 - Contact with and (suspected) exposure to environmental tobacco smoke (acute) (chronic) (ICD-10) PAD (peripheral artery disease) I73.9 - Peripheral vascular disease, unspecified (ICD-10) Subconjunctival hemorrhage of right eye H11.31 - Conjunctival hemorrhage, right eye (ICD-10) Olecranon bursitis M70.20 - Olecranon bursitis, unspecified elbow (ICD-10) Surgical History H/O vasectomy Z98.52 - Vasectomy status (ICD-10) Family History Other No known health problems Social History Smoking and tobacco status: Current every day smoker Tobacco type: cigarettes Smoking packs per day: 1.5 Smoking cigarettes per day: 30.0 Alcohol intake: current Alcohol intake frequency: 0-2 drinks per day Alcohol type: beer Substance use type: does not use Special nolberto needs: No Agree to transfusion: Yes Adopted: No Caregiver/support person: No Foster care: No Household members: spouse Housing: house Marital status: M Lives independently: Yes Daycare: no daycare Number of children: 2 service: Yes status: retired residential: No Current occupational status: retired History of recent travel: No Do you think of yourself as: straight/heterosexual Current gender identity: male Seatbelt use: always Drives intoxicated or rides with intoxicated full service vending driver: No Current diet type/program: regular Water heater temperature set < 120 degrees: Yes Working smoke detector in home: No Fire extinguisher in home: No Carbon monoxide detector in home: No Allergies Allergies Allergy/AdvReac Type Severity Reaction Status Date / Time No Known Allergies Allergy Verified 10/02/24 18:39 Current Medications Home Medications hydrochlorothiazide 12.5 mg capsule 12.5 mg PO QDAY #90 caps 02/14/24 [Rx Confirmed 10/02/24 Last Taken 10/01/24] losartan 50 mg tablet See Rx Instructions .Route .COMPLEX #60 tabs 03/13/24 [Rx Confirmed 10/02/24 Last Taken 10/01/24] amlodipine 5 mg tablet 5 mg PO DAILY #90 tabs 04/26/24 [Rx Confirmed 10/02/24 Last Taken 10/01/24] rosuvastatin 20 mg tablet See Rx Instructions .Route .COMPLEX #30 tabs 08/07/24 [Rx Confirmed 10/02/24 Last Taken 10/01/24] clopidogrel 75 mg tablet 75 mg PO DAILY #90 tabs 09/05/24 [Rx Confirmed 10/02/24 Last Taken 10/01/24] tamsulosin 0.4 mg capsule 0.8 mg PO BEDTIME 09/18/24 [History Confirmed 10/02/24 Last Taken 10/01/24] finasteride 5 mg tablet 5 mg PO DAILY #30 tabs 09/19/24 [Rx Confirmed 10/02/24 Last Taken 10/01/24] metformin 1,000 mg tablet 1,000 mg PO 2XD #60 tabs 10/03/24 [Rx Last Taken Unknown] Home Acetaminophen (Acetaminophen 325 Mg Tablet) 650 mg PO Q4H PRN PRN Reason: Mild Pain Albuterol/Ipratropium (Ipratropium/Albuterol Vial.Neb) 3 ml NEB RTQ4H PRN PRN Reason: Wheezing Last Admin: 10/03/24 10:26 Dose: 3 ml Amlodipine Besylate (Amlodipine Besylate 5 Mg Tablet) 5 mg PO DAILY [facility] Last Admin: 10/03/24 08:18 Dose: 5 mg Clopidogrel Bisulfate (Clopidogrel Bisulfate 75 Mg Tablet) 75 mg PO DAILY [facility] Last Admin: 10/03/24 08:18 Dose: 75 mg Doxycycline Hyclate (Doxycycline Hyclate 100 Mg Capsule) 100 mg PO Q12HR [facility] Stop: 10/06/24 11:49 Enoxaparin Sodium (Enoxaparin Sodium 40 Mg/0.4 Ml Syr) 40 mg SUBCUT DAILY [facility] Finasteride (Finasteride 5 Mg Tablet) 5 mg PO DAILY [facility] Last Admin: 10/03/24 08:18 Dose: 5 mg Hydrochlorothiazide (Hydrochlorothiazide 25 Mg Tablet) 12.5 mg PO DAILY [facility] Last Admin: 10/03/24 08:18 Dose: 12.5 mg CEFTRIAXONE/D5W 1 GM PREMIX (Rocephin 1 Gm/50 Ml D5w) 1 gm in 50 mls @ 100 mls/hr IV DAILY [facility] Stop: 10/06/24 11:49 Last Admin: 10/03/24 12:28 Dose: 100 mls/hr Insulin Human Lispro (Insulin Lispro 100 Unit/Ml (10 Ml Vial)) 0 unit SUBCUT PRN PRN; Protocol PRN Reason: Hyperglycemia Losartan Potassium (Losartan Potassium 25 Mg Tablet) 50 mg PO BID [facility] Last Admin: 10/03/24 08:19 Dose: 50 mg Methylprednisolone Sodium Succinate (Methylprednisolone Sod Succ/Pf 40 Mg/Ml Vial) 40 mg IVP Q8HR [facility] Last Admin: 10/03/24 08:20 Dose: 40 mg Ondansetron HCl (Ondansetron Hcl/Pf 4 Mg/2 Ml Sdv) 4 mg IVP Q6H PRN PRN Reason: Nausea / Vomiting Rosuvastatin Calcium (Rosuvastatin Calcium 10 Mg Tablet) 20 mg PO DAILY [facility] Last Admin: 10/03/24 08:18 Dose: 20 mg Sodium Chloride (0.9% Sodium Chloride 10 Ml Disp.Syrin) 1 syr IVF Q8HR [facility] Last Admin: 10/03/24 04:58 Dose: 1 syr Tamsulosin HCl (Tamsulosin Hcl 0.4 Mg Cap.Er.24h) 0.8 mg PO BEDTIME [facility] Last Admin: 10/02/24 22:26 Dose: 0.8 mg Discontinued Medications Albuterol/Ipratropium (Ipratropium/Albuterol Vial.Neb) 3 ml NEB ONCE ONE Stop: 10/02/24 19:24 Last Admin: 10/02/24 19:53 Dose: 3 ml Ceftriaxone Sodium (Ceftriaxone 1 Gm Vial) 2 gm IVP ONCE ONE Stop: 10/02/24 19:24 Last Admin: 10/02/24 20:10 Dose: 2 gm Levofloxacin/Dextrose (Levaquin 750 Mg/150 Ml D5w) 750 mg in 150 mls @ 100 mls/ hr IV ONCE ONE Stop: 10/02/24 20:52 Last Admin: 10/02/24 21:12 Dose: 100 mls/hr Methylprednisolone Sodium Succinate 125 mg/ Sodium Chloride 52 mls @ 100 mls/hr IV ONCE ONE Stop: 10/02/24 19:55 Last Admin: 10/02/24 20:11 Dose: 100 mls/hr Opioid Naive vs. Tolerant Does Patient Take Opioids?: No Is Patient Opioid Naive?: Yes What is Opioid Naive?: *Opioid Naive implies the patient is not already taking opioids or not chronically receiving opioids on a daily basis. *PRN dosing is not "usually" associated with tolerance. *Patients are at higher risk of over-sedation and aspiration. Is Patient Opioid Tolerant?: No What is Opioid Tolerant?: *Opioid Tolerance implies less than the expected response to an opioid. *Acquired tolerance is defined by the patient taking 60mg of oral morphine daily (or equianalgesic dose of another opioid) for 1 week or more. *Often associated with chronic pain. *May take more than usual dose to achieve desired pain control. Review of Systems Constitutional: Reports Fatigue, Weakness and Loss of appetite; Denies Fever Head: Reports Normocephalic and Atraumatic Throat: Denies Sore Throat Cardiovascular: Denies Chest pain, Chest Pressure or Edema Respiratory: Reports Cough and Shortness of air Gastrointestinal: Denies Nausea, Vomiting, Abdominal pain or Melena Genitourinary: Denies Dysuria or Hematuria Neurological: Reports Weakness; Denies Dizziness, Syncope or Loss of Conciousness Physical examination Most Recent Vital Signs: Most Recent Vital Signs Temperature 97.2 F L 10/03/24 10:00 Temperature Source Temporal Artery Scan 10/03/24 10:00 Temperature Source Oral 10/02/24 18:34 Pulse Rate 84 10/03/24 10:00 Respiratory Rate 18 10/03/24 10:00 Blood Pressure 123/72 10/03/24 10:00 Blood Pressure Mean 89 10/03/24 10:00 Blood Pressure Left Arm 105/73 10/02/24 21:59 Blood Pressure Location Right Arm 10/03/24 10:00 Blood Pressure Position Supine 10/03/24 10:00 O2 Sat by Pulse Oximetry 92 L 10/03/24 10:00 Oxygen Delivery Method Room Air 10/03/24 11:00 Oxygen Flow Rate 2 10/03/24 06:00 Height 6 ft 10/03/24 09:38 Weight 49 kg 10/03/24 09:38 Telemetry Type Remote Telemetry 10/03/24 07:00 Telemetry Monitoring Continues 10/03/24 07:00 Telemetry Heart Rate 70 10/03/24 01:00 Telemetry SPO2 92 L 10/03/24 01:00 EKG IN Interval 0.13 10/03/24 07:00 EKG QRS Interval 0.07 10/03/24 07:00 Telemetry Strip Reading SR 10/03/24 07:00 Appearance: Positive Alert and Oriented x3, Thin and Cachectic Skin: Negative Rashes HEENT: Positive Normocephalic and Atraumatic Neck: Positive Supple and Midline Trachea Chest/Lungs: Positive Other (+diminished breath sounds yana, mild retractions present, conversational dyspnea noted ) Heart: Positive RRR GI/: Positive Soft, Nontender, Bowel Sounds Normal and No Distention Extremities: Negative Edema Neurological: Positive Cranial Nerves Intact, Alert, Oriented and Other (+generalized weakness ) Psychiatric: Positive Oriented x4, Appropriate Mood and Appropriate Affect Labs This Visit Labs This Visit: Labs This Visit 10/02/24 10/02/24 10/02/24 19:05 20:20 21:07 WBC 8.99 RBC 4.17 L Hgb 12.4 L Hct 39.6 L MCV 95.0 H MCH 29.7 MCHC 31.3 L RDW Coeff of Katie 13.4 Plt Count 303 Immature Gran % (Auto) 0.4 Neut % (Auto) 69.4 Lymph % (Auto) 20.8 Drew % (Auto) 9.0 Eos % (Auto) 0.2 Baso % (Auto) 0.2 Neut # (Auto) 6.2 Lymph # (Auto) 1.9 Drew # (Auto) 0.8 Eos # (Auto) 0.0 Baso # (Auto) 0.0 Immature Gran # (Auto) 0.0 Sodium 135.6 Potassium 3.60 Chloride 100.8 Carbon Dioxide 26.6 Anion Gap 11.80 BUN 35.8 H Creatinine 1.14 H Estimated GFR (MDRD) 63.00 BUN/Creatinine Ratio 31.40 Glucose 224.4 H Lactic Acid 1.78 Calcium 8.84 Total Bilirubin 1.10 AST 14.7 L ALT 14.4 Alkaline Phosphatase 82.2 Troponin I 0.012 NT-Pro-B Natriuret Pep 480 H Total Protein 6.63 Albumin 3.34 L Globulin 3.29 Albumin/Globulin Ratio 1.01 Procalcitonin 0.06 H Plasma/Serum Alcohol < 10.0 Influ A Molecular Assay Positive by naat H Influ B Molecular Assay Negative by naat RSV Antigen Negative by naat SARS CoV-2 RNA Rapid MING Negative 10/03/24 05:05 WBC 6.25 RBC 4.11 L Hgb 11.7 L Hct 37.0 L MCV 90.0 D MCH 28.5 MCHC 31.6 L RDW Coeff of Katie 13.4 Plt Count 326 Immature Gran % (Auto) 0.5 Neut % (Auto) 86.0 H Lymph % (Auto) 11.4 Drew % (Auto) 1.6 Eos % (Auto) 0.5 Baso % (Auto) 0.0 Neut # (Auto) 5.4 Lymph # (Auto) 0.7 Drew # (Auto) 0.1 L Eos # (Auto) 0.0 Baso # (Auto) 0.0 Immature Gran # (Auto) 0.0 Sodium 135.2 Potassium 4.41 Chloride 98.9 Carbon Dioxide 29.5 Anion Gap 11.21 BUN 37.3 H Creatinine 1.05 Estimated GFR (MDRD) 69.00 BUN/Creatinine Ratio 35.52 Glucose 304.0 H D Lactic Acid Calcium 8.38 L Total Bilirubin 0.70 AST 23.0 ALT 14.7 Alkaline Phosphatase 72.7 Troponin I NT-Pro-B Natriuret Pep Total Protein 6.14 L Albumin 3.01 L Globulin 3.13 Albumin/Globulin Ratio 0.96 Procalcitonin Plasma/Serum Alcohol Influ A Molecular Assay Influ B Molecular Assay RSV Antigen SARS CoV-2 RNA Rapid MING Imaging Imaging: EXAM: CHEST RADIOGRAPH TECHNIQUE: Single frontal chest radiograph. HISTORY: Dyspnea. COMPARISON: 09/17/2024. FINDINGS: Hyperinflation consistent with emphysema. Multiple calcified granulomas bilaterally. Mild consolidation in the right upper lobe inferiorly consistent with pneumonia. Lungs are otherwise clear. The heart size is normal. Calcification in the aorta. There is no pleural effusion. There is no pneumothorax. IMPRESSION: 1. Mild right upper lobe pneumonia. 2. Emphysema. 3. Old calcified granulomatous disease. 4. Atherosclerosis. 5. Otherwise unremarkable chest radiograph. Review Statement Review Statement: I have independently reviewed and interpreted the labs/EKGs/imaging that were ordered by the ER provider. I have reviewed all outside records that are available currently in our EMR including imaging/notes/labs from previous visits. Plan Plan: 1. Acute COPD exacerbation in setting of influenza - duonebs, O2 prn if needed, steroids 2. Right sided pneumonia - Likely viral from influenza but given >7 days of symptoms and his immunocompromised condition, will cover with abx. Cont rocephin/doxy. 3. Medical noncompliance - Given multiple admissions and he himself and his admitting they cannot care for him at home, residential placement was discussed. Pt is adamantly declining at this time. He does not really have a plan going forward, but it isn't the residential. High likelihood of readmission. 4. Hypertension - Cont home meds 5. DMT2- Hold metformin, diabetic diet, humalog ss 6. BPH - Cont home meds DVT Prophylaxis: Lovenox Time Spent: Greater than 80 minutes spent with patient, 50% of the time spent with this patient was devoted to counseling and coordination of care. [facility]annin minutes spent discussing advance care planning. Smoking Cessation: 3 minutes spent discussing smoking cessation. Admit to: flipped inpatient Discussed Plan of Care with Dr. Ashley Steiner. Medications Medication Orders: Medications Ordered Category Date Time Status 0.9 % Sodium Chloride [Saline Flush] Meds 10/03/24 05:00 Active 1 syr IVF Q8HR Acetaminophen [Tylenol] Meds 10/02/24 20:22 Active 650 mg PO Q4H PRN Amlodipine Besylate [Norvasc] Meds 10/03/24 09:00 Active 5 mg PO DAILY Ceftriaxone/D5w 1 gm Premix [Rocephin 1 gm/50 ml D5w] Meds 10/03/24 11:50 Ordered 1 gm in 50 ml IV DAILY Clopidogrel Bisulfate [Plavix] Meds 10/03/24 09:00 Active 75 mg PO DAILY Doxycycline Hyclate Meds 10/03/24 11:50 Ordered 100 mg PO Q12HR Finasteride [Proscar] Meds 10/03/24 09:00 Active 5 mg PO DAILY Hydrochlorothiazide Meds 10/03/24 09:00 Active 12.5 mg PO DAILY Ipratropium/Albuterol Neb [Duoneb] Meds 10/02/24 20:27 Active 3 ml NEB RTQ4H PRN Losartan Potassium [Cozaar] Meds 10/02/24 22:00 Active 50 mg PO BID Methylprednisolone Sod Succ/Pf [Solu-Medrol 40 mg] Meds 10/03/24 09:00 Active 40 mg IVP Q8HR Ondansetron HCl/Pf [Zofran Sdv] Meds 10/02/24 20:22 Active 4 mg IVP Q6H PRN Rosuvastatin Calcium [Crestor] Meds 10/03/24 09:00 Active 20 mg PO DAILY Tamsulosin HCl [Flomax] Meds 10/02/24 21:45 Active 0.8 mg PO BEDTIME
[2024-10-03] MEDS ORDERED: HUMALOG (10 ML VIAL) SUBCUT PRN (11:59)
[2024-10-03] MEDS: ROCEPHIN 1 GM/50 ML D5W 1 GM/50 ML BAG IV SCH (12:28)
[2024-10-03] MEDS: LOVENOX SUBCUT SCH (12:53)
[2024-10-03] MEDS: DOXYCYCLINE HYCLATE PO SCH (12:53)
[2024-10-03] MEDS: NYSTATIN CREAM TP SCH (14:30)
[2024-10-03] MEDS: HUMALOG (10 ML VIAL) SUBCUT PRN (17:15)
[2024-10-03] MEDS: DUONEB NEB SCH (20:33)
[2024-10-03 21:08] LABS: BLOOD UREA NITROGEN 48.6 mg/dL (9-20); CALCIUM 8.46 mg/dL (8.4-10.2); CHLORIDE 91.6 mmol/L (98-107); CREATININE 1.2 mg/dL (0.60-1.10); POTASSIUM 4.1 mmol/L (3.5-5.1)
[2024-10-03 21:15] LABS: GLUCOSE 581.7 mg/dL (74-106)
[2024-10-03] MEDS: SODIUM CHLORIDE 1,000 ML IV SCH (21:34)
[2024-10-03] MEDS ORDERED: DUONEB NEB SCH (22:00)
--- NOTE | 2024-10-03 22:30 | PCM.PROG ---
Patient continues to have BS >500 despite multiple subq humalog doses. Likely steroid induced. Labs do not indicate DKA at this time. Plan: Hold solumedrol. Start insulin drip per protocol and NS + 20+K at 125 ml/hr with hourly accuchecks. Repeat BMP at 0300. Call provider with results for further instruction. Stop insulin drip and fluids if glucose <300.
[2024-10-03] MEDS: SODIUM CHLORIDE 0.9%-KCL 20 MEQ 1,000 ML IV SCH (22:32)
[2024-10-03] MEDS: MYXREDLIN 100 UNIT/100 ML BAG 100 UNIT/100 ML PLAST..BAG IV SCH (22:52)
[2024-10-04 03:18] LABS: BLOOD UREA NITROGEN 45.8 mg/dL (9-20); CALCIUM 8.56 mg/dL (8.4-10.2); CARBON DIOXIDE 30.3 mmol/L (22-30.0); CHLORIDE 95.2 mmol/L (98-107); CREATININE 1.13 mg/dL (0.60-1.10); GLUCOSE 305.2 mg/dL (74-106); POTASSIUM 3.59 mmol/L (3.5-5.1); SODIUM 131.4 mmol/L (134.5-145)
[2024-10-04 06:04] LABS: BASOPHILS % (AUTO) 0.1 % (0.0-3.0); EOSINOPHILS # (AUTO) 0.1 K/ul (0.0-0.7); EOSINOPHILS % (AUTO) 0.6 % (0.0-7.0); HEMATOCRIT 33.9 % (42.0-52.0); HEMOGLOBIN 10.7 g/dl (14.0-18.0); IMMATURE GRANULOCYTE # (AUTO) 0.1 (0.0-1.0); IMMATURE GRANULOCYTE % (AUTO) 0.5 % (0.0-5.0); LYMPHOCYTES # (AUTO) 1.7 K/uL (0.60-3.4); LYMPHOCYTES % (AUTO) 17.2 (10.0-50.0); MEAN CORPUSCULAR HEMOGLOBIN 28.3 pg (27.0-31.0); MEAN CORPUSCULAR HGB CONC 31.6 (31.8-35.4); MEAN CORPUSCULAR VOLUME 89.7 fl (80.0-94.0); MONOCYTES # (AUTO) 1.1 K/uL (0.4-2.0); NEUTROPHILS # (AUTO) 7.2 K/ul (2.0-6.9); NEUTROPHILS % (AUTO) 70.6 % (42.2-75.2); PLATELET COUNT 303 10^3/uL (140-440); RDW COEFFICIENT OF VARIATION 13.2 % (11.6-14.8); RED BLOOD COUNT 3.78 10^6/ul (4.70-6.10); WHITE BLOOD COUNT 10.13 K/ul (4.2-10.2)
[2024-10-04 06:17] LABS: ALANINE AMINOTRANSFERASE 23.3 U/L (0-50); ALBUMIN 2.78 g/dL (3.5-5.0); ALKALINE PHOSPHATASE 72.4 U/L (56-119); ASPARTATE AMINO TRANSFERASE 31.7 U/L (17-59); BILIRUBIN,TOTAL 0.44 mg/dL (0.2-1.3); BLOOD UREA NITROGEN 44.2 mg/dL (9-20); CALCIUM 8.63 mg/dL (8.4-10.2); CARBON DIOXIDE 31.8 mmol/L (22-30.0); CHLORIDE 96.1 mmol/L (98-107); CREATININE 1.13 mg/dL (0.60-1.10); GLUCOSE 246.2 mg/dL (74-106); POTASSIUM 3.64 mmol/L (3.5-5.1); SODIUM 131.6 mmol/L (134.5-145); TOTAL PROTEIN 5.72 g/dL (6.3-8.2)
--- NOTE | 2024-10-04 11:27 | DCSUM ---
Hospital Provider Hospital Provider: [facility]ENETTA EARL PA-C, [facility] Primary Care Physician: RUSSEL STEINER MD Hospital Course Vital Signs: Most Recent Vital Signs Temperature 97.1 F L 10/04/24 10:00 Temperature Source Temporal Artery Scan 10/04/24 10:00 Temperature Source Oral 10/02/24 18:34 Pulse Rate 73 10/04/24 10:00 Respiratory Rate 20 10/04/24 10:00 Blood Pressure 128/70 10/04/24 10:00 Blood Pressure Mean 89 10/04/24 10:00 Blood Pressure Left Arm 105/73 10/02/24 21:59 Blood Pressure Location Left Arm 10/04/24 10:00 Blood Pressure Position Supine 10/04/24 05:25 O2 Sat by Pulse Oximetry 91 L 10/04/24 10:00 Oxygen Delivery Method Room Air 10/04/24 11:00 Oxygen Flow Rate 1 10/04/24 05:25 Height 6 ft 10/03/24 09:38 Weight 49 kg 10/03/24 09:38 Telemetry Type Remote Telemetry 10/04/24 07:00 Telemetry Monitoring Continues 10/04/24 07:00 Telemetry Heart Rate 64 10/04/24 07:00 Telemetry SPO2 98 10/04/24 01:00 EKG MA Interval 0.14 10/04/24 07:00 EKG QRS Interval 0.06 10/04/24 07:00 Telemetry Strip Reading SR 10/04/24 07:00 Lab Results Last 24 Hours: 10/04/24 10/04/24 10/03/24 05:56 03:00 22:03 WBC 10.13 RBC 3.78 L Hgb 10.7 L Hct 33.9 L MCV 89.7 MCH 28.3 MCHC 31.6 L RDW Coeff of Katie 13.2 Plt Count 303 Immature Gran % (Auto) 0.5 Neut % (Auto) 70.6 Lymph % (Auto) 17.2 [place] % (Auto) 11.0 H Eos % (Auto) 0.6 Baso % (Auto) 0.1 Neut # (Auto) 7.2 H Lymph # (Auto) 1.7 [place] # (Auto) 1.1 Eos # (Auto) 0.1 Baso # (Auto) 0.0 Immature Gran # (Auto) 0.1 Sodium 131.6 L 131.4 L Potassium 3.64 3.59 Chloride 96.1 L 95.2 L Carbon Dioxide 31.8 H 30.3 H Anion Gap 7.34 9.49 BUN 44.2 H 45.8 H Creatinine 1.13 H 1.13 H Estimated GFR (MDRD) 63.00 63.00 BUN/Creatinine Ratio 39.11 40.53 Glucose 246.2 H D 305.2 H D 570.3 H* Calcium 8.63 8.56 Total Bilirubin 0.44 AST 31.7 ALT 23.3 Alkaline Phosphatase 72.4 Total Protein 5.72 L Albumin 2.78 L Globulin 2.94 Albumin/Globulin Ratio 0.94 10/03/24 10/03/24 20:28 17:02 WBC RBC Hgb Hct MCV MCH MCHC RDW Coeff of Katie Plt Count Immature Gran % (Auto) Neut % (Auto) Lymph % (Auto) [place] % (Auto) Eos % (Auto) Baso % (Auto) Neut # (Auto) Lymph # (Auto) [place] # (Auto) Eos # (Auto) Baso # (Auto) Immature Gran # (Auto) Sodium 129.0 L Potassium 4.10 Chloride 91.6 L Carbon Dioxide 27.0 Anion Gap 14.50 BUN 48.6 H Creatinine 1.20 H Estimated GFR (MDRD) 59.00 BUN/Creatinine Ratio 40.50 Glucose 581.7 H* 571.1 H* D Calcium 8.46 Total Bilirubin AST ALT Alkaline Phosphatase Total Protein Albumin Globulin Albumin/Globulin Ratio Discharge Instructions Discharge Planning: Discharge Planning > 40 minutes If patient is discharged with left ventricular systolic dysfunction: Discharged with a beta alma? [] If no, why not? [] Discharged with an oneida/arb? [] If no, why not? [] Discharge Medications: Medications at Discharge (Home Meds & RX) hydrochlorothiazide 12.5 mg capsule 12.5 mg PO QDAY #90 caps 02/14/24 losartan 50 mg tablet See Rx Instructions .Route .COMPLEX #60 tabs 03/13/24 amlodipine 5 mg tablet 5 mg PO DAILY #90 tabs 04/26/24 rosuvastatin 20 mg tablet See Rx Instructions .Route .COMPLEX #30 tabs 08/07/24 clopidogrel 75 mg tablet 75 mg PO DAILY #90 tabs 09/05/24 tamsulosin 0.4 mg capsule 0.8 mg PO BEDTIME 09/18/24 finasteride 5 mg tablet 5 mg PO DAILY #30 tabs 09/19/24 metformin 1,000 mg tablet 1,000 mg PO 2XD #60 tabs 10/03/24 Discharge Plan Discharge Discharge Orders: Discharge Patient (ONCE); Ordered 10/04/24 Ordered By: RENETTA EARL Prescriptions: No Action hydrochlorothiazide 12.5 mg capsule 12.5 mg PO QDAY Qty: 90 1RF losartan 50 mg tablet See Rx Instructions .ROUTE .COMPLEX Qty: 60 5RF Dose Instruction: TAKE ONE TABLET TWICE DAILY Rx Instructions: TAKE ONE TABLET TWICE DAILY amlodipine 5 mg tablet 5 mg PO DAILY Qty: 90 1RF rosuvastatin 20 mg tablet See Rx Instructions .ROUTE .COMPLEX Qty: 30 3RF Dose Instruction: TAKE ONE TABLET DAILY Rx Instructions: TAKE ONE TABLET DAILY clopidogrel 75 mg tablet 75 mg PO DAILY Qty: 90 1RF metformin 1,000 mg tablet 1,000 mg PO 2XD Qty: 60 2RF tamsulosin 0.4 mg capsule 0.8 mg PO BEDTIME finasteride 5 mg Tablet 5 mg PO DAILY Qty: 30 0RF Referrals: RUSSEL STEINER MD [Primary Care Provider] - 10/10/24 11:00 am
[2024-10-04] MEDS: HUMALOG (10 ML VIAL) SUBCUT STA ×2 (11:50→13:01)
--- NOTE | 2024-10-04 12:43 | PCM.PROG ---
Date/Time Seen Date Seen by Provider: 10/04/24 Time Seen by Provider: 08:40 Provider Provider: RENETTA EARL PA-C, [facility] Chief Complaint Chief Complaint: PNEUMONIA, TYPE 2 DIABETES Subjective Subjective: Patient states he's feeling better today. Nursing noted his O2 to be 88% and placed him on 1L. His glucose has also been >500 despite stopping solumedrol last night. He did require an insulin drip for about 4ish hours overnight. Glucose improved but then again this afternoon his sugar is >500 despite humalog. Objective Appearance: Positive No Apparent Distress and Alert and Oriented x3 Chest/Lungs: Positive Clear to Auscultation Bilaterally and Wheezes (mild yana, improved ) Heart: Positive RRR GI/: Positive Soft, Nontender, Bowel Sounds Normal and No Distention Neurological: Positive Cranial Nerves Intact, Alert, Oriented and Other (+generalized weakness, frail, thin) Vital Signs Vital Signs: Vital Signs: Last 24 Hours 10/03/24 13:00 10/03/24 13:00 10/03/24 14:00 Temperature Temperature Source Pulse Rate Respiratory Rate Blood Pressure Blood Pressure Mean Blood Pressure Location Blood Pressure Position O2 Sat by Pulse Oximetry Oxygen Delivery Method Room Air Nasal Cannula Oxygen Flow Rate 2 Telemetry Type Remote Telemetry Telemetry Monitoring Continues Telemetry Heart Rate 79 Telemetry SPO2 EKG AK Interval 0.13 EKG QRS Interval 0.08 Telemetry Strip Reading NSR 10/03/24 14:00 10/03/24 14:00 10/03/24 14:53 Temperature 97.4 F L Temperature Source Temporal Artery Scan Pulse Rate 78 Respiratory Rate 20 Blood Pressure 119/75 Blood Pressure Mean 89 Blood Pressure Location Left Arm Blood Pressure Position Supine O2 Sat by Pulse Oximetry 91 L Oxygen Delivery Method Nasal Cannula Room Air Room Air Oxygen Flow Rate Telemetry Type Telemetry Monitoring Telemetry Heart Rate Telemetry SPO2 EKG AK Interval EKG QRS Interval Telemetry Strip Reading 10/03/24 16:00 10/03/24 17:00 10/03/24 18:00 Temperature 97 F L Temperature Source Temporal Artery Scan Pulse Rate 78 Respiratory Rate 22 H Blood Pressure 126/83 Blood Pressure Mean 97 Blood Pressure Location Right Arm Blood Pressure Position Sitting O2 Sat by Pulse Oximetry 95 Oxygen Delivery Method Room Air Room Air Room Air Oxygen Flow Rate Telemetry Type Telemetry Monitoring Telemetry Heart Rate Telemetry SPO2 EKG AK Interval EKG QRS Interval Telemetry Strip Reading 10/03/24 18:00 10/03/24 19:00 10/03/24 19:00 Temperature Temperature Source Pulse Rate Respiratory Rate Blood Pressure Blood Pressure Mean Blood Pressure Location Blood Pressure Position O2 Sat by Pulse Oximetry Oxygen Delivery Method Room Air Room Air Oxygen Flow Rate Telemetry Type Remote Telemetry Telemetry Monitoring Continues Telemetry Heart Rate 71 Telemetry SPO2 94 EKG AK Interval 0.15 EKG QRS Interval 0.04 L Telemetry Strip Reading SR 10/03/24 19:10 10/03/24 20:00 10/03/24 20:00 Temperature Temperature Source Pulse Rate Respiratory Rate 22 H Blood Pressure Blood Pressure Mean Blood Pressure Location Blood Pressure Position O2 Sat by Pulse Oximetry 95 Oxygen Delivery Method Nasal Cannula Room Air Room Air Oxygen Flow Rate 1 1 Telemetry Type Telemetry Monitoring Telemetry Heart Rate Telemetry SPO2 EKG AK Interval EKG QRS Interval Telemetry Strip Reading 10/03/24 20:59 10/03/24 21:00 10/03/24 22:00 Temperature 98 F Temperature Source Temporal Artery Scan Pulse Rate 74 Respiratory Rate 17 Blood Pressure 117/74 Blood Pressure Mean 88 Blood Pressure Location Right Arm Blood Pressure Position Supine O2 Sat by Pulse Oximetry 94 L Oxygen Delivery Method Nasal Cannula Nasal Cannula Nasal Cannula Oxygen Flow Rate 1 Telemetry Type Telemetry Monitoring Telemetry Heart Rate Telemetry SPO2 EKG AK Interval EKG QRS Interval Telemetry Strip Reading 10/03/24 23:00 10/04/24 00:00 10/04/24 01:00 Temperature Temperature Source Pulse Rate Respiratory Rate Blood Pressure Blood Pressure Mean Blood Pressure Location Blood Pressure Position O2 Sat by Pulse Oximetry Oxygen Delivery Method Nasal Cannula Nasal Cannula Nasal Cannula Oxygen Flow Rate Telemetry Type Telemetry Monitoring Telemetry Heart Rate Telemetry SPO2 EKG AK Interval EKG QRS Interval Telemetry Strip Reading 10/04/24 01:00 10/04/24 02:00 10/04/24 02:00 Temperature Temperature Source Pulse Rate 95 Respiratory Rate 20 Blood Pressure Blood Pressure Mean Blood Pressure Location Blood Pressure Position O2 Sat by Pulse Oximetry 95 Oxygen Delivery Method Nasal Cannula Nasal Cannula Oxygen Flow Rate 1 Telemetry Type Remote Telemetry Telemetry Monitoring Continues Telemetry Heart Rate 62 Telemetry SPO2 98 EKG AK Interval 0.14 EKG QRS Interval 0.03 L Telemetry Strip Reading SR 10/04/24 03:00 10/04/24 04:00 10/04/24 04:46 Temperature Temperature Source Pulse Rate Respiratory Rate Blood Pressure Blood Pressure Mean Blood Pressure Location Blood Pressure Position O2 Sat by Pulse Oximetry Oxygen Delivery Method Nasal Cannula Nasal Cannula Nasal Cannula Oxygen Flow Rate Telemetry Type Telemetry Monitoring Telemetry Heart Rate Telemetry SPO2 EKG AK Interval EKG QRS Interval Telemetry Strip Reading 10/04/24 05:10 10/04/24 05:25 10/04/24 05:45 Temperature 98 F Temperature Source Temporal Artery Scan Pulse Rate 84 Respiratory Rate 20 Blood Pressure 124/84 Blood Pressure Mean 97 Blood Pressure Location Right Arm Blood Pressure Position Supine O2 Sat by Pulse Oximetry 95 95 Oxygen Delivery Method Nasal Cannula Nasal Cannula Nasal Cannula Oxygen Flow Rate 1 1 Telemetry Type Telemetry Monitoring Telemetry Heart Rate Telemetry SPO2 EKG AK Interval EKG QRS Interval Telemetry Strip Reading 10/04/24 07:00 10/04/24 07:00 10/04/24 08:00 Temperature Temperature Source Pulse Rate Respiratory Rate Blood Pressure Blood Pressure Mean Blood Pressure Location Blood Pressure Position O2 Sat by Pulse Oximetry Oxygen Delivery Method Nasal Cannula Nasal Cannula Oxygen Flow Rate Telemetry Type Remote Telemetry Telemetry Monitoring Continues Telemetry Heart Rate 64 Telemetry SPO2 EKG AK Interval 0.14 EKG QRS Interval 0.06 Telemetry Strip Reading SR 10/04/24 08:00 10/04/24 09:00 10/04/24 10:00 Temperature 97.1 F L Temperature Source Temporal Artery Scan Pulse Rate 73 Respiratory Rate 20 Blood Pressure 128/70 Blood Pressure Mean 89 Blood Pressure Location Left Arm Blood Pressure Position O2 Sat by Pulse Oximetry 91 L Oxygen Delivery Method Room Air Room Air Room Air Oxygen Flow Rate Telemetry Type Telemetry Monitoring Telemetry Heart Rate Telemetry SPO2 EKG AK Interval EKG QRS Interval Telemetry Strip Reading 10/04/24 10:00 10/04/24 10:00 10/04/24 11:00 Temperature Temperature Source Pulse Rate Respiratory Rate Blood Pressure Blood Pressure Mean Blood Pressure Location Blood Pressure Position O2 Sat by Pulse Oximetry 93 L Oxygen Delivery Method Room Air Room Air Room Air Oxygen Flow Rate Telemetry Type Telemetry Monitoring Telemetry Heart Rate Telemetry SPO2 EKG AK Interval EKG QRS Interval Telemetry Strip Reading 10/04/24 12:00 Temperature Temperature Source Pulse Rate Respiratory Rate Blood Pressure Blood Pressure Mean Blood Pressure Location Blood Pressure Position O2 Sat by Pulse Oximetry Oxygen Delivery Method Nasal Cannula Oxygen Flow Rate Telemetry Type Telemetry Monitoring Telemetry Heart Rate Telemetry SPO2 EKG AK Interval EKG QRS Interval Telemetry Strip Reading Lab Results Lab Results: Lab Results: Last 24 Hours 10/04/24 10/04/24 10/03/24 05:56 03:00 22:03 WBC 10.13 RBC 3.78 L Hgb 10.7 L Hct 33.9 L MCV 89.7 MCH 28.3 MCHC 31.6 L RDW Coeff of Katie 13.2 Plt Count 303 Immature Gran % (Auto) 0.5 Neut % (Auto) 70.6 Lymph % (Auto) 17.2 [place] % (Auto) 11.0 H Eos % (Auto) 0.6 Baso % (Auto) 0.1 Neut # (Auto) 7.2 H Lymph # (Auto) 1.7 [place] # (Auto) 1.1 Eos # (Auto) 0.1 Baso # (Auto) 0.0 Immature Gran # (Auto) 0.1 Sodium 131.6 L 131.4 L Potassium 3.64 3.59 Chloride 96.1 L 95.2 L Carbon Dioxide 31.8 H 30.3 H Anion Gap 7.34 9.49 BUN 44.2 H 45.8 H Creatinine 1.13 H 1.13 H Estimated GFR (MDRD) 63.00 63.00 BUN/Creatinine Ratio 39.11 40.53 Glucose 246.2 H D 305.2 H D 570.3 H* Calcium 8.63 8.56 Total Bilirubin 0.44 AST 31.7 ALT 23.3 Alkaline Phosphatase 72.4 Total Protein 5.72 L Albumin 2.78 L Globulin 2.94 Albumin/Globulin Ratio 0.94 10/03/24 10/03/24 20:28 17:02 WBC RBC Hgb Hct MCV MCH MCHC RDW Coeff of Katie Plt Count Immature Gran % (Auto) Neut % (Auto) Lymph % (Auto) [place] % (Auto) Eos % (Auto) Baso % (Auto) Neut # (Auto) Lymph # (Auto) [place] # (Auto) Eos # (Auto) Baso # (Auto) Immature Gran # (Auto) Sodium 129.0 L Potassium 4.10 Chloride 91.6 L Carbon Dioxide 27.0 Anion Gap 14.50 BUN 48.6 H Creatinine 1.20 H Estimated GFR (MDRD) 59.00 BUN/Creatinine Ratio 40.50 Glucose 581.7 H* 571.1 H* D Calcium 8.46 Total Bilirubin AST ALT Alkaline Phosphatase Total Protein Albumin Globulin Albumin/Globulin Ratio Additional Comments Additional Comments: I have independently reviewed and interpreted the labs/EKGs/imaging ordered during this hospital stay. I have reviewed outside records that are available in our EMR that pertain to medical stay including imaging/notes/labs from previous visits. Active Medications Active Medications: Medications Generic Name Dose Route Start Last Admin Trade Name Freq PRN Reason Stop Dose Admin Acetaminophen 650 mg 10/02/24 20:22 Acetaminophen 325 Mg Tablet PO Q4H PRN Mild Pain Albuterol/Ipratropium 3 ml 10/03/24 20:00 10/04/24 10:08 Ipratropium/Albuterol Vial.Neb NEB 3 ml RTQID YARED Administration Amlodipine Besylate 5 mg 10/03/24 09:00 10/04/24 08:12 Amlodipine Besylate 5 Mg Tablet PO 5 mg DAILY YARED Administration Clopidogrel Bisulfate 75 mg 10/03/24 09:00 10/04/24 08:10 Clopidogrel Bisulfate 75 Mg Tablet PO 75 mg DAILY YARED Administration Doxycycline Hyclate 100 mg 10/03/24 11:50 10/04/24 08:11 Doxycycline Hyclate 100 Mg Capsule PO 10/07/24 22:00 100 mg Q12HR YARED Administration Enoxaparin Sodium 40 mg 10/03/24 12:00 10/04/24 08:13 Enoxaparin Sodium 40 Mg/0.4 Ml Syr SUBCUT 40 mg DAILY YARED Administration Finasteride 5 mg 10/03/24 09:00 10/04/24 08:11 Finasteride 5 Mg Tablet PO 5 mg DAILY YARED Administration Hydrochlorothiazide 12.5 mg 10/03/24 09:00 10/04/24 08:13 Hydrochlorothiazide 25 Mg Tablet PO 12.5 mg DAILY YARED Administration CEFTRIAXONE/D5W 1 GM PREMIX 1 gm in 50 mls @ 100 mls/hr 10/03/24 11:50 10/04/24 08:12 Rocephin 1 Gm/50 Ml D5w IV 10/06/24 11:49 100 mls/hr DAILY YARED Administration Insulin Human Lispro 0 unit 10/03/24 17:04 10/04/24 06:27 Insulin Lispro 100 Unit/Ml (10 Ml Vial) SUBCUT 5 unit PRN PRN Administration Hyperglycemia Protocol Losartan Potassium 50 mg 10/02/24 22:00 10/04/24 08:12 Losartan Potassium 25 Mg Tablet PO 50 mg BID YARED Administration Methylprednisolone Sodium Succinate 40 mg 10/03/24 09:00 10/03/24 12:53 Methylprednisolone Sod Succ/Pf 40 Mg/Ml Vial IVP 40 mg Q8HR YARED Administration Nystatin 1 applic 10/03/24 14:10 10/04/24 08:27 Nystatin 15 Gm Cream TP 1 applic BID YARED Administration Ondansetron HCl 4 mg 10/02/24 20:22 Ondansetron Hcl/Pf 4 Mg/2 Ml Sdv IVP Q6H PRN Nausea / Vomiting Rosuvastatin Calcium 20 mg 10/03/24 09:00 10/04/24 08:11 Rosuvastatin Calcium 10 Mg Tablet PO 20 mg DAILY YARED Administration Sodium Chloride 1 syr 10/03/24 05:00 10/04/24 12:32 0.9% Sodium Chloride 10 Ml Disp.Syrin IVF 1 syr Q8HR YARED Administration Tamsulosin HCl 0.8 mg 10/02/24 21:45 10/03/24 20:13 Tamsulosin Hcl 0.4 Mg Cap.Er.24h PO 0.8 mg BEDTIME YARED Administration Plan Plan: 1. Acute COPD exacerbation in setting of influenza - duonebs, O2 prn if needed, stop steroids due to hyperglycemia 2. Right sided pneumonia - Likely viral from influenza but given >7 days of symptoms and his immunocompromised condition, will cover with abx. Cont rocephin/doxy. 3. Medical noncompliance - Given multiple admissions and he himself and his admitting they cannot care for him at home, usp placement was discussed. Pt is adamantly declining at this time. He does not really have a plan going forward, but it isn't the usp. High likelihood of readmission. 4. Hypertension - Cont home meds 5. DMT2- Hold metformin, diabetic diet, humalog ss 6. BPH - Cont home meds 7. Hyperglycemia in setting of steroids - Attempting to cover with humalog at this time, but if no improvement will put back on insulin drip. DVT Prophylaxis: Lovenox Discharge delayed due to elevated glucose, anticipate discharge tomorrow. Review Statement Review Statement: I have personally discussed and reviewed the patient's visit/currently labs/imaging/decision making with Dr. Morris, my supervising attending. Greater that 50 minutes spent with patient, 50% of the time spent with this patient was devoted to counseling and coordination of care.
[2024-10-04] MEDS: SODIUM CHLORIDE 0.9%-KCL 20 MEQ 1,000 ML IV SCH (14:04)
[2024-10-04] MEDS: MYXREDLIN 100 UNIT/100 ML BAG 100 UNIT/100 ML PLAST..BAG IV SCH (14:05)
[2024-10-04 18:33] LABS: BLOOD UREA NITROGEN 45.4 mg/dL (9-20); CALCIUM 8.8 mg/dL (8.4-10.2); CARBON DIOXIDE 26.3 mmol/L (22-30.0); CHLORIDE 100.3 mmol/L (98-107); CREATININE 0.95 mg/dL (0.60-1.10); POTASSIUM 3.87 mmol/L (3.5-5.1); SODIUM 132.4 mmol/L (134.5-145)
[2024-10-05 05:21] LABS: BASOPHILS % (AUTO) 0.1 % (0.0-3.0); EOSINOPHILS % (AUTO) 0.3 % (0.0-7.0); HEMATOCRIT 36.5 % (42.0-52.0); HEMOGLOBIN 11.5 g/dl (14.0-18.0); IMMATURE GRANULOCYTE % (AUTO) 0.3 % (0.0-5.0); LYMPHOCYTES # (AUTO) 1.4 K/uL (0.60-3.4); LYMPHOCYTES % (AUTO) 14.6 (10.0-50.0); MEAN CORPUSCULAR HEMOGLOBIN 28.5 pg (27.0-31.0); MEAN CORPUSCULAR HGB CONC 31.5 (31.8-35.4); MEAN CORPUSCULAR VOLUME 90.6 fl (80.0-94.0); MONOCYTES # (AUTO) 0.7 K/uL (0.4-2.0); MONOCYTES % (AUTO) 7.1 (0-10); NEUTROPHILS # (AUTO) 7.5 K/ul (2.0-6.9); NEUTROPHILS % (AUTO) 77.6 % (42.2-75.2); PLATELET COUNT 299 10^3/uL (140-440); RDW COEFFICIENT OF VARIATION 13.6 % (11.6-14.8); RED BLOOD COUNT 4.03 10^6/ul (4.70-6.10); WHITE BLOOD COUNT 9.61 K/ul (4.2-10.2)
[2024-10-05 05:33] LABS: ALANINE AMINOTRANSFERASE 28.9 U/L (0-50); ALBUMIN 2.88 g/dL (3.5-5.0); ALKALINE PHOSPHATASE 79.1 U/L (56-119); ASPARTATE AMINO TRANSFERASE 31.1 U/L (17-59); BILIRUBIN,TOTAL 0.6 mg/dL (0.2-1.3); BLOOD UREA NITROGEN 37.1 mg/dL (9-20); CALCIUM 8.59 mg/dL (8.4-10.2); CARBON DIOXIDE 29.2 mmol/L (22-30.0); CHLORIDE 97.6 mmol/L (98-107); CREATININE 0.99 mg/dL (0.60-1.10); GLUCOSE 264.5 mg/dL (74-106); POTASSIUM 3.93 mmol/L (3.5-5.1); SODIUM 132.2 mmol/L (134.5-145); TOTAL PROTEIN 5.82 g/dL (6.3-8.2)
[2024-10-05 09:50] VITALS: BP 115/74; PULSE 102; RESP 26; TEMP 97.2
--- NOTE | 2024-10-05 10:34 | DCSUM ---
Admission Date Admission Date: 10/02/24 Discharge Date Discharge Date: 10/05/24 Admission Diagnosis Admission Diagnosis: 1. Acute COPD exacerbation in setting of influenza 2. Right sided pneumonia Discharge Diagnosis Discharge Diagnosis: 1. Acute COPD exacerbation in setting of influenza 2. Right sided pneumonia 3. Medical noncompliance 4. Hypertension 5. DMT2 6. BPH 7. Hyperglycemia in setting of steroids - improved Hospital Provider Hospital Provider: RENETTA EARL PA-C, [facility] Primary Care Physician Primary Care Physician: RUSSEL STEINER MD Summary of History and Physical Summary of History and Physical: Patient is a 73 year old male from home with pmhx of dmt2, COPD, hx of urinary retention, BPH, hyperlipidemia, cva, hypertension, smoker who presents to ER with worsening SOB. Patient states it has been ongoing for over a week. He denies having a nebulizer at home. Has not tried anything at home. His had tested positive for influenza. In the ER he was noted to have unremarkable labs and vitals, but CXR did show concern for pneumonia. Due to his age and comorbidities, pt was admitted. He was given rocephin and levaquin. Today he states he is feeling somewhat better but doesn't feel he can go home. He states "my can't take care of me like this." Hospital Course Subjective: Patient's CXR showed concern for pneumonia. Thought to likely be viral pna given influenza, however chose to cover with abx given patient's underlying COPD and predisposition for secondary bacterial pneumonia. He was also started on solumedrol and breathing treatments. Out of window for tamiflu. Patient overall did well. He did require 1-2L of O2. His glucose was elevated due to the steroids which has to be stopped and he was on an insulin drip for a period of time to bring glucose down. However that has improved. He is having good intake. He does not want correction placement, home health, or really any resource offered to him. Requesting to go home today. He has a nebulizer, but sounds like he doesn't use it. Will send in remainder of abx, and duonebs. Home O2 set up for him although patient is already very noncompliant with wearing a nasal cannula while in the hospital. Patient is high risk for readmission. Appearance: No Apparent Distress, Alert and Other (+chronically ill, thin, frail ) HEENT: MMM and Supple CVS: Other (RRR) Abdomen: Soft, Non-Tender and No Distention Respiratory: Other (+nonlabored breathing, speaks full sentences, no tripoding ) Extremities: No Edema Vital Signs: Most Recent Vital Signs Temperature 97.2 F L 10/05/24 09:49 Temperature Source Temporal Artery Scan 10/05/24 09:49 Temperature Source Oral 10/02/24 18:34 Pulse Rate 102 H 10/05/24 09:49 Respiratory Rate 26 H 10/05/24 09:49 Blood Pressure 115/74 10/05/24 09:49 Blood Pressure Mean 87 10/05/24 09:49 Blood Pressure Left Arm 105/73 10/02/24 21:59 Blood Pressure Location Left Arm 10/05/24 09:49 Blood Pressure Position Supine 10/05/24 04:54 O2 Sat by Pulse Oximetry 92 L 10/05/24 10:00 Oxygen Delivery Method Nasal Cannula 10/05/24 10:00 Oxygen Flow Rate 2 10/05/24 10:00 Height 6 ft 10/03/24 09:38 Weight 49 kg 10/03/24 09:38 Telemetry Type Remote Telemetry 10/05/24 07:00 Telemetry Monitoring Continues 10/05/24 07:00 Telemetry Heart Rate 100 10/05/24 07:00 Telemetry SPO2 94 10/05/24 07:00 EKG AL Interval 0.14 10/05/24 07:00 EKG QRS Interval 0.05 L 10/05/24 07:00 Telemetry Strip Reading SR with PACs 10/05/24 07:00 Imaging: EXAM: CHEST RADIOGRAPH TECHNIQUE: Single frontal chest radiograph. HISTORY: Dyspnea. COMPARISON: 09/17/2024. FINDINGS: Hyperinflation consistent with emphysema. Multiple calcified granulomas bilaterally. Mild consolidation in the right upper lobe inferiorly consistent with pneumonia. Lungs are otherwise clear. The heart size is normal. Calcification in the aorta. There is no pleural effusion. There is no pneumothorax. IMPRESSION: 1. Mild right upper lobe pneumonia. 2. Emphysema. 3. Old calcified granulomatous disease. 4. Atherosclerosis. 5. Otherwise unremarkable chest radiograph. Lab Results Last 24 Hours: 10/05/24 10/04/24 04:59 18:10 WBC 9.61 RBC 4.03 L Hgb 11.5 L Hct 36.5 L MCV 90.6 MCH 28.5 MCHC 31.5 L RDW Coeff of Katie 13.6 Plt Count 299 Immature Gran % (Auto) 0.3 Neut % (Auto) 77.6 H Lymph % (Auto) 14.6 [place] % (Auto) 7.1 Eos % (Auto) 0.3 Baso % (Auto) 0.1 Neut # (Auto) 7.5 H Lymph # (Auto) 1.4 [place] # (Auto) 0.7 Eos # (Auto) 0.0 Baso # (Auto) 0.0 Immature Gran # (Auto) 0.0 Sodium 132.2 L 132.4 L Potassium 3.93 3.87 Chloride 97.6 L 100.3 Carbon Dioxide 29.2 26.3 Anion Gap 9.33 9.67 BUN 37.1 H 45.4 H Creatinine 0.99 0.95 Estimated GFR (MDRD) 74.00 77.00 BUN/Creatinine Ratio 37.47 47.78 Glucose 264.5 H D 174.0 H D Calcium 8.59 8.80 Total Bilirubin 0.60 AST 31.1 ALT 28.9 Alkaline Phosphatase 79.1 Total Protein 5.82 L Albumin 2.88 L Globulin 2.94 Albumin/Globulin Ratio 0.97 Discharge Instructions Discharge Planning: Discharge Planning > [address] Ashley Steiner. Discharge Medications: Medications at Discharge (Home Meds & RX) Discharge Plan Discharge Discharge Orders: Discharge Patient (ONCE); Ordered 10/05/24 Ordered By: RENETTA EARL Activity Restrictions/Additional Instructions: DISCHARGE TO HOME DX: INFLUENZA, PNEUMONIA, COPD WEAR YOUR OXYGEN. DO NOT SMOKE WHILE WEARING YOUR OXYGEN. PLEASE FOLLOW UP WITH PCP [facility] Instructions: Influenza (GEN), Hypoxia (GEN) Patient Disposition: HOME SELF-CARE Prescriptions: New doxycycline hyclate 100 mg Capsule 100 mg PO Q12HR 5 Days Qty: 10 0RF ipratropium-albuterol 0.5 mg-3 mg(2.5 mg base)/3 mL Solution For Nebulization 3 ml NEB RTQ6H PRN (Reason: SOB) Qty: 60 0RF cefpodoxime 200 mg tablet 200 mg PO BID 3 Days Qty: 6 0RF Rx Instructions: must administer with a meal/food. Start 10/06/24 Continued hydrochlorothiazide 12.5 mg capsule 12.5 mg PO QDAY Qty: 90 1RF losartan 50 mg tablet See Rx Instructions .ROUTE .COMPLEX Qty: 60 5RF Dose Instruction: TAKE ONE TABLET TWICE DAILY Rx Instructions: TAKE ONE TABLET TWICE DAILY amlodipine 5 mg tablet 5 mg PO DAILY Qty: 90 1RF rosuvastatin 20 mg tablet See Rx Instructions .ROUTE .COMPLEX Qty: 30 3RF Dose Instruction: TAKE ONE TABLET DAILY Rx Instructions: TAKE ONE TABLET DAILY clopidogrel 75 mg tablet 75 mg PO DAILY Qty: 90 1RF metformin 1,000 mg tablet 1,000 mg PO 2XD Qty: 60 2RF tamsulosin 0.4 mg capsule 0.8 mg PO BEDTIME finasteride 5 mg Tablet 5 mg PO DAILY Qty: 30 0RF Did you review [place] [employer] for ALL controlled substances?: Not Applicable Discussed opioids are addictive and Narcan is available by prescription or from pharmacy.: No Condition: Stable Referrals: RUSSEL STEINER MD [Primary Care Provider] - 10/10/24 11:00 am
== END 2024-10-05 15:00 | disposition home or self-care (01) | DRG 190 ==
LOC: ED 18:33 → MEDSURG B 18:33
PROVIDERS: ADMIT Hospitalist; ATTEND Physician Assistant

== ENCOUNTER 2024-10-12 15:56 | Inpatient (IN) ==
--- NOTE | 2024-10-12 16:10 | ED.PDOC ---
General ED Provider: Dr. HUNTER POOLE MD Chief Complaint: Shortness of Air Stated Complaint: weakness Time Seen by Provider: 10/12/24 16:07 Mode of Arrival: Ambulance Information Source: Patient, Family (Pat) and EMT Primary Care Provider: RUSSEL STEINER MD Nursing and Triage Documentation Reviewed and Agree: Yes Does Patient Take Opioids?: No Is Patient Opioid Naive?: Yes What is Opioid Naive?: *Opioid Naive implies the patient is not already taking opioids or not chronically receiving opioids on a daily basis. *PRN dosing is not "usually" associated with tolerance. *Patients are at higher risk of over-sedation and aspiration. Is Patient Opioid Tolerant?: No What is Opioid Tolerant?: *Opioid Tolerance implies less than the expected response to an opioid. *Acquired tolerance is defined by the patient taking 60mg of oral morphine daily (or equianalgesic dose of another opioid) for 1 week or more. *Often associated with chronic pain. *May take more than usual dose to achieve desired pain control. Respiratory Complaint Exam Shortness of Air Complaint/Exam Onset/Duration: Long-term Symptoms Are: Still present Timing: Constant Initial Severity: Moderate Current Severity: Severe Character: Reports Dyspnea at rest, Dyspnea on exertion and Orthopnea Aggravating: Reports Movement, Recumbent position, URI and Smoke exposure Alleviating: Reports Bronchodilators, Oxygen and Upright position Associated Signs and Symptoms: Reports Cough, Wheezing, Rapid breathing, Labored breathing and Decreased intake; Denies Chest pain with cough, Chest pain, Fever, Chills, Diaphoresis, Nasal congestion, Dizziness, Calf pain, Calf swelling or Edema Related History: Reports Similar episode History of Healthcare-Acquired Pneumonia: Admit w/in last 30 days Pulmonary Embolism Risk Factors: Reports Bedrest and Smoking Cardiac Risk Factors: Reports Smoking, Diabetes and Hypertension Pseudomonas Risk Factors: Reports Chronic Lung Disease, Repeat Antibx in 3 months and Chronic steriod use Tuberculosis Risk Factors: Reports Corticosteriod use, Immune deficiency, Malnutrition, Diabetes, Chronic Resp. Faliure, Smoking and Alcohol abuse; Denies Close contact w/ TB pt. Home Oxygen Use: Yes Respiratory Distress: Moderate Stridor Present: No Tracheal Deviation: No Subcutaneous Emphysema: No Accessory Muscle Use: Yes Retractions: Nasal Flaring and Intercostal Diminished Breath Sounds: Yes Prolonged Expiratory Phase: Yes Unable to Speak Full Sentences: Yes Fatigue: Yes Leg Swelling: No Camila's Sign Present: No Grunting Respirations: No Differential Diagnoses: Asthma, Pulmonary Edema, COPD Exacerbation, Pneumonia, SARS, Bronchitis and URI Review of Systems Review Of Systems Constitutional: Reports Weakness and Loss of appetite; Denies Chills or Fever Eyes: Reports No symptoms Ears, Nose, Mouth, Throat: Reports No symptoms and Other (Dental caries, hearing loss,) Cardiac: Reports No symptoms GI: Reports No symptoms, Poor appetite and Poor fluid intake : Reports No symptoms and Other (History of chronic indwelling Walsh catheter) Musculoskeletal: Reports Muscle stiffness Skin: Reports Other (Poor hygiene) Neurological: Reports Cognitive dysfunction (Evident on today's evaluation) Endocrine: Reports Increased thirst and Unexplained weight loss Hematologic/Lymphatic: Reports No symptoms [facility] Medical History Encounter for Medicare annual wellness exam Z00.00 - Encounter for general adult medical examination without abnormal findings (ICD-10) Weight loss, non-intentional R63.4 - Abnormal weight loss (ICD-10) Abnormal stress test R94.39 - Abnormal result of other cardiovascular function study (ICD-10) Hypertension I10 - Essential (primary) hypertension (ICD-10) Contact with and (suspected) exposure to environmental tobacco smoke (acute) (chronic) Z77.22 - Contact with and (suspected) exposure to environmental tobacco smoke (acute) (chronic) (ICD-10) PAD (peripheral artery disease) I73.9 - Peripheral vascular disease, unspecified (ICD-10) Subconjunctival hemorrhage of right eye H11.31 - Conjunctival hemorrhage, right eye (ICD-10) Olecranon bursitis M70.20 - Olecranon bursitis, unspecified elbow (ICD-10) Family History Other No known health problems Social History Smoking and tobacco status: Current every day smoker Tobacco type: cigarettes Smoking packs per day: 1.5 Smoking cigarettes per day: 30.0 Alcohol intake: current Alcohol intake frequency: 0-2 drinks per day Alcohol type: beer Substance use type: does not use Special nolberto needs: No Agree to transfusion: Yes Adopted: No Caregiver/support person: No Foster care: No Household members: spouse Housing: house Marital status: M Lives independently: Yes Daycare: no daycare Number of children: 2 service: Yes status: retired prison: No Current occupational status: retired History of recent travel: No Do you think of yourself as: straight/heterosexual Current gender identity: male Seatbelt use: always Drives intoxicated or rides with intoxicated driver license agent: No Current diet type/program: regular Water heater temperature set < 120 degrees: Yes Working smoke detector in home: No Fire extinguisher in home: No Carbon monoxide detector in home: No Surgical History H/O vasectomy Z98.52 - Vasectomy status (ICD-10) Physical Exam Physical Exam Appearance: Reports Ill-appearing, Thin and Cachectic Ill-appearing: Moderate Pain Distress: None Eyes: Reports VERNON and EOMI ENT: Reports Nose normal and Other (Dental caries into the pulp) Neck: Supple Respiratory: Reports Breath sounds diminished, Crackles, Rhonchi, Wheezes and Retractions Cardiovascular: Reports RRR, Pulses normal and No murmur GI/: Reports Soft, Nontender, Bowel sounds normal and No Organomegaly Musculoskeletal: Reports No edema, No calf tenderness, Limited ROM and Limited strength Skin: Reports Warm, Dry and Other (Poor skin turgor) Neurological: Reports Alert and Oriented (??) Interpretation Radiology Interpretation Radiology Interpretation By: ED Physician Radiology Results: No acute changes (No gross changes compared to study done October 02) Exam Interpreted: Portable CXR Xray Comments: By my independent interpretation Physician Notification Case Discussed Physician Notified: Armando Tucker NP Time of Notification: 16:44 Comments: Observation for longterm placement tomorrow Admit/Transition Orders Entered by ED Provider: No Admit To: Observation Course Course 10/12/24 16:25 10/12/24 16:25 Orders, Labs, Meds: Lab Review 10/12/24 10/12/24 16:23 16:25 WBC 6.74 RBC 4.42 L Hgb 12.5 L Hct 40.1 L MCV 90.7 MCH 28.3 MCHC 31.2 L RDW Coeff of Katie 13.6 Plt Count 291 Immature Gran % (Auto) 0.4 Neut % (Auto) 66.4 Lymph % (Auto) 24.6 Travis % (Auto) 7.9 Eos % (Auto) 0.6 Baso % (Auto) 0.1 Neut # (Auto) 4.5 Lymph # (Auto) 1.7 Travis # (Auto) 0.5 Eos # (Auto) 0.0 Baso # (Auto) 0.0 Immature Gran # (Auto) 0.0 Sodium 135.2 Potassium 3.60 Chloride 96.5 L Carbon Dioxide 29.2 Anion Gap 13.10 BUN 20.9 H Creatinine 1.13 H Estimated GFR (MDRD) 63.00 BUN/Creatinine Ratio 18.49 Glucose 259.0 H Lactic Acid 1.53 Calcium 8.70 NT-Pro-B Natriuret Pep 389 H SARS CoV-2 RNA Rapid MING Negative Orders Category Date Time Status PLACE [facility] ([facility] 10/12/24 16:46 Active BED) OXYGEN Routine CARDIO 10/12/24 16:50 Ordered ACTIVITY .Early Mobilization for VTE Prevention CARE 10/12/24 16:49 Active BLOOD GLUCOSE MONITORING (MED/SURG) 0630,1100,1700,2100 CARE 10/12/24 16:50 Active GIVE HS SNACK 2100 CARE 10/12/24 16:50 Active INTAKE & OUTPUT Q8HR CARE 10/12/24 16:49 Active VITAL SIGNS Q8HR CARE 10/12/24 16:49 Active ADA 1800 LEXI. DIET DIETARY 10/12/24 Dinner Ordered HS SNACK DIETARY 10/12/24 Dinner Ordered Bladder Scan [ED BLADDER SCAN] .ONCE EMERGENCY 10/12/24 16:15 Active Walsh [ED CATHETER INSERTION AND CARE] .ONCE EMERGENCY 10/12/24 16:53 Active BLOOD CULTURE (ED ONLY) Stat LAB 10/12/24 16:25 Received BMP [BASIC METABOLIC PANEL] Stat LAB 10/12/24 16:25 Completed CBC W/ AUTO DIFF DAILY@0600 LAB 10/13/24 06:00 Ordered CBC W/ AUTO DIFF DAILY@0600 LAB 10/14/24 06:00 Ordered CBC W/ AUTO DIFF Stat LAB 10/12/24 16:25 Completed COMPREHENSIVE METABOLIC PANEL DAILY@0600 LAB 10/13/24 06:00 Ordered COMPREHENSIVE METABOLIC PANEL DAILY@0600 LAB 10/14/24 06:00 Ordered COVID [SARS COV-2 RNA RAPID MING] Stat LAB 10/12/24 16:23 Completed LACTIC ACID Stat LAB 10/12/24 16:25 Completed NT-PROBNP(ED) Stat LAB 10/12/24 16:25 Completed Acetaminophen [Tylenol] Meds 10/12/24 16:49 Active 650 mg PO Q4H PRN Insulin Regular, Human [Humulin R (10Ml)] Meds 10/12/24 16:49 Active See Protocol SUBCUT PRN PRN Ipratropium/Albuterol Neb [Duoneb] Meds 10/12/24 16:11 Discontinued 3 ml NEB ONCE ONE CXR [CHEST, 1V AP ONLY] Stat RADS 10/12/24 16:11 Completed Medications Generic Name Dose Route Start Last Admin Trade Name Freq PRN Reason Stop Dose Admin Acetaminophen 650 mg 10/12/24 16:49 Acetaminophen 325 Mg Tablet PO Q4H PRN Mild Pain Insulin Human Regular 0 unit 10/12/24 16:49 Insulin Regular, Human 100 Unit/Ml (10ml) Vial SUBCUT PRN PRN Hyperglycemia Protocol Discontinued Medications Generic Name Dose Route Start Last Admin Trade Name Freq PRN Reason Stop Dose Admin Albuterol/Ipratropium 3 ml 10/12/24 16:11 10/12/24 16:25 Ipratropium/Albuterol Vial.Neb NEB 10/12/24 16:12 3 ml ONCE ONE Administration Vital Signs: Temp Pulse Resp BP Pulse Ox O2 Flow Rate 10/12/24 16:48 2 10/12/24 15:56 97.7 F 100 20 163/97 H 99 EXAM: CHEST RADIOGRAPH (1 VIEW) TECHNIQUE: Frontal Chest Radiograph. HISTORY: Dyspnea COMPARISON: 10/02/2024. FINDINGS: Lines, Tubes, Devices: None Lungs and Pleura: Improved appearance to the right mid lung opacity. Right infrahilar opacity, possibly related to scarring or prominent interstitial markings. Pneumonia is not excludable. Scattered granulomas. Emphysematous changes. Cardiac silhouette: Normal. Bones: No acute abnormality. IMPRESSION: Right infrahilar opacity, possibly scarring or prominent interstitial markings. However, pneumonia is not excludable. Emphysema and additional findings as above. Electronically Signed By: Dez Duncan D.O. Signing Date: 2024-10-12 16:29 Discharge Plan Discharge Patient Disposition: PLACED OBSERVATION Discharge Problem: Acute and chronic respiratory failure with hypoxia, Nicotine dependence, cigarettes, with unspecified nicotine-induced disorders Did you review [place] RUG [employer]ER for ALL controlled substances?: No ED Provider: HUNTER POOLE Condition: Stable Physician Progress Note: Patient seen after triage States he is not any good. Family had called a few hours ago stating they are gone and to call 911. He was discharged 1 week ago. He states 3 hospital nights. Mention at that time was to have him placed in a nursing facility and he declined. Family sentiment at this time for placement. Unable to get direct admission to the nursing facility without first evaluation. He will need to be reevaluated for level of acuity. He is comfort measures essentially. Records from through 10/05 reviewed Chest x-ray is unchanged essentially from October 02. CBC is unremarkable. Rest labs reviewed. COVID-negative. Case discussed with Armando Tucker nurse practitioner hospitalist. She is agreeable to observation for the evening pending longterm placement tomorrow. Family notified. They initiated this visit for placement. They are agreeable that the patient is no longer able to be cared for at home. The and daughter concur. Patient is unsure how long it has been since he urinated last. Bladder scan would only say greater than 200. Walsh catheter anchored.
[2024-10-12] MEDS: DUONEB NEB ONE (16:25)
--- NOTE | 2024-10-12 16:33 | DI ---
EXAM: CHEST RADIOGRAPH (1 VIEW) TECHNIQUE: Frontal Chest Radiograph. HISTORY: Dyspnea COMPARISON: 10/02/2024. FINDINGS: Lines, Tubes, Devices: None Lungs and Pleura: Improved appearance to the right mid lung opacity. Right infrahilar opacity, poss ibly related to scarring or prominent interstitial markings. Pneumonia is not excludable. Scattered granulomas. Emphysematous changes. Cardiac silhouette: Normal. Bones: No acute abnormality. IMPRESSION: Right infrahilar opacity, possibly scarring or prominent interstitial markings. However, pneumonia i s not excludable. Emphysema and additional findings as above.
[2024-10-12 16:34] LABS: BASOPHILS % (AUTO) 0.1 % (0.0-3.0); EOSINOPHILS % (AUTO) 0.6 % (0.0-7.0); HEMATOCRIT 40.1 % (42.0-52.0); HEMOGLOBIN 12.5 g/dl (14.0-18.0); IMMATURE GRANULOCYTE % (AUTO) 0.4 % (0.0-5.0); LYMPHOCYTES # (AUTO) 1.7 K/uL (0.60-3.4); LYMPHOCYTES % (AUTO) 24.6 (10.0-50.0); MEAN CORPUSCULAR HEMOGLOBIN 28.3 pg (27.0-31.0); MEAN CORPUSCULAR HGB CONC 31.2 (31.8-35.4); MEAN CORPUSCULAR VOLUME 90.7 fl (80.0-94.0); MONOCYTES # (AUTO) 0.5 K/uL (0.4-2.0); MONOCYTES % (AUTO) 7.9 (0-10); NEUTROPHILS # (AUTO) 4.5 K/ul (2.0-6.9); NEUTROPHILS % (AUTO) 66.4 % (42.2-75.2); PLATELET COUNT 291 10^3/uL (140-440); RDW COEFFICIENT OF VARIATION 13.6 % (11.6-14.8); RED BLOOD COUNT 4.42 10^6/ul (4.70-6.10); WHITE BLOOD COUNT 6.74 K/ul (4.2-10.2)
[2024-10-12 16:46] LABS: BLOOD UREA NITROGEN 20.9 mg/dL (9-20); CALCIUM 8.7 mg/dL (8.4-10.2); CARBON DIOXIDE 29.2 mmol/L (22-30.0); CHLORIDE 96.5 mmol/L (98-107); CREATININE 1.13 mg/dL (0.60-1.10); POTASSIUM 3.6 mmol/L (3.5-5.1); SODIUM 135.2 mmol/L (134.5-145)
[2024-10-12 16:58] LABS: SARS COV-2 RNA RAPID NAAT NEGATIVE (NEGATIVE)
--- NOTE | 2024-10-12 17:01 | PCM ---
Date of Service Date Seen by Provider: 10/12/24 Admit Day/Time Admission Date: 10/12/24 Reason for Admission Chief Complaint: RESPRATORY FAILURE Hospital Provider Hospital Provider: GEORGIE VANEGAS, [facility] Primary Care Physician Primary Care Physician: RUSSEL MORRIS MD History of Present Illness History of Present Illness: 74 yo male with pmh of COPD, urinary retention/BPH, DM2, HTN and HLD presented to the ER with complaints of shortness of breath. Patient has been admitted at least once a month since July. states that patient has been refusing to get out of bed, incontinent, and refusing to wear his oxygen. He is total care right now and has been unable to bathe him or provide ADLs. In ER, patient had c/o abd pain. Bladder scan obtained and showed 200. Rod catheter placed due to patient hx of retention and had a rod recently that was removed by Dr. Lacy. Had >500 mL urine output immediately and abd pain resolved. UA showing UTI. Admitted to med/surg observation. Of note, reports she is unable to care for patient and is requesting placement to [facility]. Case Discussed With Case Discussed With: Patient's case was discussed with the ER Physicians, Dr. Multani. [facility] Medical History Encounter for Medicare annual wellness exam Z00.00 - Encounter for general adult medical examination without abnormal findings (ICD-10) Weight loss, non-intentional R63.4 - Abnormal weight loss (ICD-10) Abnormal stress test R94.39 - Abnormal result of other cardiovascular function study (ICD-10) Hypertension I10 - Essential (primary) hypertension (ICD-10) Contact with and (suspected) exposure to environmental tobacco smoke (acute) (chronic) Z77.22 - Contact with and (suspected) exposure to environmental tobacco smoke (acute) (chronic) (ICD-10) PAD (peripheral artery disease) I73.9 - Peripheral vascular disease, unspecified (ICD-10) Subconjunctival hemorrhage of right eye H11.31 - Conjunctival hemorrhage, right eye (ICD-10) Olecranon bursitis M70.20 - Olecranon bursitis, unspecified elbow (ICD-10) Surgical History H/O vasectomy Z98.52 - Vasectomy status (ICD-10) Family History Other No known health problems Social History Smoking and tobacco status: Current every day smoker Tobacco type: cigarettes Smoking packs per day: 1.5 Smoking cigarettes per day: 30.0 Alcohol intake: current Alcohol intake frequency: 0-2 drinks per day Alcohol type: beer Substance use type: does not use Special nolberto needs: No Agree to transfusion: Yes Adopted: No Caregiver/support person: No Foster care: No Household members: spouse Housing: house Marital status: M Lives independently: Yes Daycare: no daycare Number of children: 2 service: Yes status: retired long-term: No Current occupational status: retired History of recent travel: No Do you think of yourself as: straight/heterosexual Current gender identity: male Seatbelt use: always Drives intoxicated or rides with intoxicated vibratory pile driver: No Current diet type/program: regular Water heater temperature set < 120 degrees: Yes Working smoke detector in home: No Fire extinguisher in home: No Carbon monoxide detector in home: No Allergies Allergies Allergy/AdvReac Type Severity Reaction Status Date / Time No Known Allergies Allergy Verified 10/12/24 16:13 Current Medications Home Medications Acetaminophen (Acetaminophen 325 Mg Tablet) 650 mg PO Q4H PRN PRN Reason: Mild Pain Albuterol/Ipratropium (Ipratropium/Albuterol Vial.Neb) 3 ml NEB RTQ6H YARED CEFTRIAXONE/D5W 1 GM PREMIX (Rocephin 1 Gm/50 Ml D5w) 1 gm in 50 mls @ 100 mls/hr IV Q24H YARED Stop: 10/15/24 19:59 Sodium Chloride (Sodium Chloride) 1,000 mls @ 75 mls/hr IV .[id number] YARED Insulin Human Regular (Insulin Regular, Human 100 Unit/Ml (10ml) Vial) 0 unit SUBCUT PRN PRN; Protocol PRN Reason: Hyperglycemia losartan 50 mg tablet See Rx Instructions .Route .COMPLEX #60 tabs 03/13/24 [Rx Confirmed 10/12/24] rosuvastatin 20 mg tablet See Rx Instructions .Route .COMPLEX #30 tabs 08/07/24 [Rx Confirmed 10/12/24] clopidogrel 75 mg tablet 75 mg PO DAILY #90 tabs 09/05/24 [Rx Confirmed 10/12/24] tamsulosin 0.4 mg capsule 0.8 mg PO BEDTIME 09/18/24 [History Confirmed 10/12/24] finasteride 5 mg tablet 5 mg PO DAILY #30 tabs 09/19/24 [Rx Confirmed 10/12/24] metformin 1,000 mg tablet 1,000 mg PO 2XD #60 tabs 10/03/24 [Rx Confirmed 10/12/24] ipratropium 0.5 mg-albuterol 3 mg (2.5 mg base)/3 mL nebulization soln 3 ml NEB RTQ6H PRN SOB #60 amps 10/05/24 [Rx Confirmed 10/12/24] aspirin 81 mg tablet,delayed release (Adult Aspirin Regimen) 81 mg PO DAILY 10/12/24 [History Confirmed 10/12/24] Opioid Naive vs. Tolerant Does Patient Take Opioids?: No Is Patient Opioid Naive?: Yes What is Opioid Naive?: *Opioid Naive implies the patient is not already taking opioids or not chronically receiving opioids on a daily basis. *PRN dosing is not "usually" associated with tolerance. *Patients are at higher risk of over-sedation and aspiration. Is Patient Opioid Tolerant?: No What is Opioid Tolerant?: *Opioid Tolerance implies less than the expected response to an opioid. *Acquired tolerance is defined by the patient taking 60mg of oral morphine daily (or equianalgesic dose of another opioid) for 1 week or more. *Often associated with chronic pain. *May take more than usual dose to achieve desired pain control. Review of Systems Constitutional: Reports No symptoms Head: Reports Normocephalic Eyes: Reports No symptoms Ears: Reports No symptoms Nose: Reports No symptoms Mouth: Reports No symptoms Throat: Reports No symptoms Cardiovascular: Reports No symptoms Respiratory: Reports Shortness of air Gastrointestinal: Reports Abdominal pain Genitourinary: Reports No Symptoms Musculoskeletal: Reports No symptoms Endocrine: Reports No symptoms Hematology: Reports No symptoms Immunology: Reports No symptoms Neurological: Reports No symptoms Psychiatric: Reports No symptoms Physical examination Most Recent Vital Signs: Most Recent Vital Signs Temperature 97.7 F 10/12/24 15:56 Temperature Source Temporal Artery Scan 10/12/24 15:56 Pulse Rate 100 10/12/24 15:56 Respiratory Rate 20 10/12/24 15:56 Blood Pressure 163/97 H 10/12/24 15:56 O2 Sat by Pulse Oximetry 99 10/12/24 15:56 Oxygen Flow Rate 2 10/12/24 16:48 Height 6 ft 10/12/24 15:56 Weight 51.4 kg 10/12/24 15:56 Telemetry Heart Rate 93 10/05/24 13:00 Telemetry SPO2 93 10/05/24 13:00 Appearance: Positive No Apparent Distress, Ill-Appearing, Thin and Cachectic Skin: Positive Warm HEENT: Positive Normocephalic and PERRLA Neck: Positive Supple and Midline Trachea Chest/Lungs: Positive Symmetrical With Equal Breath Sounds, Clear to Auscultation Bilaterally and Good Air Movement all 4 Lung Low Heart: Positive RRR and Pulses Normal GI/: Positive Soft, Nontender, Bowel Sounds Normal and No Distention Musculoskeletal: Positive Not Examined Extremities: Positive Intact Peripheral Pulses, Stable Joints Without Laxity and Good ROM in All Joints Neurological: Positive Sensation Intact, Motor intact, Alert, Oriented (person, place, year, president) and Disorinted (month) Labs This Visit Labs This Visit: Labs This Visit 10/12/24 10/12/24 16:23 16:25 WBC 6.74 RBC 4.42 L Hgb 12.5 L Hct 40.1 L MCV 90.7 MCH 28.3 MCHC 31.2 L RDW Coeff of Katie 13.6 Plt Count 291 Immature Gran % (Auto) 0.4 Neut % (Auto) 66.4 Lymph % (Auto) 24.6 Taney % (Auto) 7.9 Eos % (Auto) 0.6 Baso % (Auto) 0.1 Neut # (Auto) 4.5 Lymph # (Auto) 1.7 Taney # (Auto) 0.5 Eos # (Auto) 0.0 Baso # (Auto) 0.0 Immature Gran # (Auto) 0.0 Sodium 135.2 Potassium 3.60 Chloride 96.5 L Carbon Dioxide 29.2 Anion Gap 13.10 BUN 20.9 H Creatinine 1.13 H Estimated GFR (MDRD) 63.00 BUN/Creatinine Ratio 18.49 Glucose 259.0 H Lactic Acid 1.53 Calcium 8.70 NT-Pro-B Natriuret Pep 389 H SARS CoV-2 RNA Rapid MING Negative Imaging Imaging: EXAM: CHEST RADIOGRAPH (1 VIEW) FINDINGS: Lines, Tubes, Devices: None Lungs and Pleura: Improved appearance to the right mid lung opacity. Right infrahilar opacity, possibly related to scarring or prominent interstitial markings. Pneumonia is not excludable. Scattered granulomas. Emphysematous changes. Cardiac silhouette: Normal. Bones: No acute abnormality. IMPRESSION: Right infrahilar opacity, possibly scarring or prominent interstitial markings. However, pneumonia is not excludable. Emphysema and additional findings as above. Review Statement Review Statement: I have independently reviewed and interpreted the labs/EKGs/imaging that were ordered by the ER provider. I have reviewed all outside records that are available currently in our EMR including imaging/notes/labs from previous visits. Plan Plan: 1. UTI - rocephin 1G Q24H, urine culture pending, most recent culture from 08/2024 showed growth of ESCHERICHIA HERMANNII sensitive to rocephin 2. Chronic Respiratory Failure - noncompliant with oxygen and medications, 2L via nc baseline, nebs 3. DM2 - accuchecks qid with ssi, ADA diet, hold oral agents 4. HTN - chronic, continue home medications 5. BPH - chronic, continue home medications DVT Prophylaxis: Ambulation Time Spent: Greater than 80 minutes spent with patient, 50% of the time spent with this patient was devoted to counseling and coordination of care. [facility] Plannin minutes spent discussing advance care planning. Disposition: Admit to: Med/Surg Observation Discussed Plan of Care with Dr. Yolanda Morris. Medications Medication Orders: Medications Ordered Category Date Time Status Acetaminophen [Tylenol] Meds 10/12/24 16:49 Ordered 650 mg PO Q4H PRN Insulin Regular, Human [Humulin R (10Ml)] Meds 10/12/24 16:49 Ordered See Protocol SUBCUT PRN PRN
[2024-10-12 17:47] LABS: BILIRUBIN,URINE Negative (NEGATIVE); CLARITY,URINE Turbid (CLEAR); COLOR,URINE Yellow (YELLOW); GLUCOSE, URINE (UA) 2+ (NEGATIVE); KETONES,URINE Negative (NEGATIVE); LEUKOCYTE ESTERASE ,URINE 3+ (NEGATIVE); NITRITE,URINE Negative (NEGATIVE); PROTEIN,URINE 2+ (NEGATIVE); URINE, BLOOD 2+ (NEGATIVE); UROBILINOGEN,URINE 0.2 (0.2)
[2024-10-12 17:53] LABS: URINE WBC, MICROSCOPIC 50-100 (0-2); YEAST,URINE 3+ (NOT PRESENT)
[2024-10-12 18:08] VITALS: BMI 15.5
[2024-10-12] MEDS: PLAVIX PO SCH (19:46)
[2024-10-12] MEDS: CRESTOR PO SCH (19:50)
[2024-10-12] MEDS: PROSCAR PO SCH (19:50)
[2024-10-12] MEDS: SODIUM CHLORIDE 1,000 ML IV SCH (19:51)
[2024-10-12] MEDS: ROCEPHIN 1 GM/50 ML D5W 1 GM/50 ML BAG IV SCH (19:56)
[2024-10-12] MEDS: COZAAR PO SCH (20:19)
[2024-10-12] MEDS: FLOMAX PO SCH (20:19)
[2024-10-12] MEDS: HUMULIN R (10ML) SUBCUT PRN (21:49)
[2024-10-13] MEDS: DUONEB NEB SCH (00:51)
[2024-10-13 05:24] LABS: BASOPHILS % (AUTO) 0.1 % (0.0-3.0); EOSINOPHILS # (AUTO) 0.1 K/ul (0.0-0.7); EOSINOPHILS % (AUTO) 0.9 % (0.0-7.0); HEMATOCRIT 38.8 % (42.0-52.0); IMMATURE GRANULOCYTE % (AUTO) 0.5 % (0.0-5.0); LYMPHOCYTES # (AUTO) 1.2 K/uL (0.60-3.4); LYMPHOCYTES % (AUTO) 13.5 (10.0-50.0); MEAN CORPUSCULAR HEMOGLOBIN 27.8 pg (27.0-31.0); MEAN CORPUSCULAR HGB CONC 30.9 (31.8-35.4); MONOCYTES # (AUTO) 0.4 K/uL (0.4-2.0); MONOCYTES % (AUTO) 4.9 (0-10); NEUTROPHILS % (AUTO) 80.1 % (42.2-75.2); PLATELET COUNT 258 10^3/uL (140-440); RDW COEFFICIENT OF VARIATION 13.5 % (11.6-14.8); RED BLOOD COUNT 4.31 10^6/ul (4.70-6.10); WHITE BLOOD COUNT 8.74 K/ul (4.2-10.2)
[2024-10-13 05:39] LABS: ALBUMIN 3.04 g/dL (3.5-5.0); ALKALINE PHOSPHATASE 94.5 U/L (56-119); BILIRUBIN,TOTAL 0.76 mg/dL (0.2-1.3); BLOOD UREA NITROGEN 18.4 mg/dL (9-20); CALCIUM 8.18 mg/dL (8.4-10.2); CARBON DIOXIDE 29.4 mmol/L (22-30.0); CHLORIDE 96.9 mmol/L (98-107); CREATININE 0.94 mg/dL (0.60-1.10); GLUCOSE 138.1 mg/dL (74-106); POTASSIUM 3.3 mmol/L (3.5-5.1); SODIUM 132.4 mmol/L (134.5-145); TOTAL PROTEIN 6.24 g/dL (6.3-8.2)
[2024-10-13] MEDS: ASPIRIN EC PO SCH (08:34)
[2024-10-13] MEDS ORDERED: ASPIRIN EC PO SCH (09:00)
--- NOTE | 2024-10-13 09:52 | PCM.PROG ---
Date/Time Seen Date Seen by Provider: 10/13/24 Time Seen by Provider: 09:00 Provider Provider: GEORGIE VANEGAS, [facility] Chief Complaint Chief Complaint: RESPRATORY FAILURE Subjective Subjective: On home oxygen. Urine appears cloudy in bag. Patient states he just feels awful Objective Appearance: Positive No Apparent Distress and Alert and Oriented x3 Chest/Lungs: Positive Symmetrical With Equal Breath Sounds, Rhonci and Good Air Movement all 4 Lung Low Heart: Positive RRR and Pulses Normal GI/: Positive Soft, Nontender, Bowel Sounds Normal and No Distention Musculoskeletal: Positive Not Examined Neurological: Positive Sensation Intact, Motor intact, Alert, Oriented (x3) and Other (appears to be unable to comprehend conversation at times, memory loss) Vital Signs Vital Signs: Vital Signs: Last 24 Hours 10/12/24 15:56 10/12/24 16:48 10/12/24 17:58 Temperature 97.7 F 98.4 F Temperature Source Temporal Artery Scan Temporal Artery Scan Pulse Rate 100 84 Respiratory Rate 20 30 H Blood Pressure 163/97 H Blood Pressure Mean Blood Pressure Right Arm 135/94 Blood Pressure Location Blood Pressure Position Sitting O2 Sat by Pulse Oximetry 99 98 Oxygen Delivery Method Nasal Cannula Oxygen Flow Rate 2 2 Height 6 ft 6 ft Weight 51.4 kg 52.2 kg 10/12/24 17:58 10/12/24 18:00 10/12/24 18:02 Temperature 98.4 F Temperature Source Temporal Artery Scan Pulse Rate 84 Respiratory Rate 30 H 30 H Blood Pressure 135/94 H Blood Pressure Mean 107 Blood Pressure Right Arm Blood Pressure Location Right Arm Blood Pressure Position Sitting O2 Sat by Pulse Oximetry 98 Oxygen Delivery Method Nasal Cannula Nasal Cannula Nasal Cannula Oxygen Flow Rate 2 2 Height Weight 10/12/24 19:00 10/12/24 20:00 10/12/24 20:53 Temperature Temperature Source Pulse Rate Respiratory Rate Blood Pressure Blood Pressure Mean Blood Pressure Right Arm Blood Pressure Location Blood Pressure Position O2 Sat by Pulse Oximetry Oxygen Delivery Method Nasal Cannula Nasal Cannula Nasal Cannula Oxygen Flow Rate Height Weight 10/12/24 21:45 10/12/24 21:46 10/12/24 22:58 Temperature 96.6 F L Temperature Source Tympanic Pulse Rate 88 Respiratory Rate 15 Blood Pressure 124/78 Blood Pressure Mean 93 Blood Pressure Right Arm Blood Pressure Location Left Arm Blood Pressure Position Sitting O2 Sat by Pulse Oximetry 99 Oxygen Delivery Method Room Air Nasal Cannula Nasal Cannula Oxygen Flow Rate Height Weight 10/13/24 00:00 10/13/24 00:55 10/13/24 01:58 Temperature Temperature Source Pulse Rate Respiratory Rate Blood Pressure Blood Pressure Mean Blood Pressure Right Arm Blood Pressure Location Blood Pressure Position O2 Sat by Pulse Oximetry Oxygen Delivery Method Nasal Cannula Nasal Cannula Nasal Cannula Oxygen Flow Rate Height Weight 10/13/24 02:55 10/13/24 04:00 10/13/24 05:00 Temperature Temperature Source Pulse Rate Respiratory Rate Blood Pressure Blood Pressure Mean Blood Pressure Right Arm Blood Pressure Location Blood Pressure Position O2 Sat by Pulse Oximetry Oxygen Delivery Method Nasal Cannula Nasal Cannula Nasal Cannula Oxygen Flow Rate Height Weight 10/13/24 05:00 10/13/24 05:17 10/13/24 05:37 Temperature 97.7 F Temperature Source Tympanic Pulse Rate 92 Respiratory Rate 17 Blood Pressure 127/83 Blood Pressure Mean 97 Blood Pressure Right Arm Blood Pressure Location Left Arm Blood Pressure Position Sitting O2 Sat by Pulse Oximetry 97 96 Oxygen Delivery Method Nasal Cannula Nasal Cannula Nasal Cannula Oxygen Flow Rate 2 Height Weight 10/13/24 05:54 10/13/24 07:00 10/13/24 07:25 Temperature Temperature Source Pulse Rate Respiratory Rate Blood Pressure Blood Pressure Mean Blood Pressure Right Arm Blood Pressure Location Blood Pressure Position O2 Sat by Pulse Oximetry Oxygen Delivery Method Nasal Cannula Nasal Cannula Nasal Cannula Oxygen Flow Rate Height Weight Lab Results Lab Results: Lab Results: Last 24 Hours 10/13/24 10/12/24 10/12/24 05:08 17:35 16:25 WBC 8.74 6.74 RBC 4.31 L 4.42 L Hgb 12.0 L 12.5 L Hct 38.8 L 40.1 L MCV 90.0 90.7 MCH 27.8 28.3 MCHC 30.9 L 31.2 L RDW Coeff of Katie 13.5 13.6 Plt Count 258 291 Immature Gran % (Auto) 0.5 0.4 Neut % (Auto) 80.1 H 66.4 Lymph % (Auto) 13.5 24.6 [place] % (Auto) 4.9 7.9 Eos % (Auto) 0.9 0.6 Baso % (Auto) 0.1 0.1 Neut # (Auto) 7.0 H 4.5 Lymph # (Auto) 1.2 1.7 [place] # (Auto) 0.4 0.5 Eos # (Auto) 0.1 0.0 Baso # (Auto) 0.0 0.0 Immature Gran # (Auto) 0.0 0.0 Sodium 132.4 L 135.2 Potassium 3.30 L 3.60 Chloride 96.9 L 96.5 L Carbon Dioxide 29.4 29.2 Anion Gap 9.40 13.10 BUN 18.4 20.9 H Creatinine 0.94 1.13 H Estimated GFR (MDRD) 78.00 63.00 BUN/Creatinine Ratio 19.57 18.49 Glucose 138.1 H D 259.0 H Lactic Acid 1.53 Calcium 8.18 L 8.70 Total Bilirubin 0.76 AST 28.0 ALT 24.0 Alkaline Phosphatase 94.5 NT-Pro-B Natriuret Pep 389 H Total Protein 6.24 L Albumin 3.04 L Globulin 3.20 Albumin/Globulin Ratio 0.95 Urine Color Yellow Urine Clarity Turbid Urine pH 6.0 Ur Specific [place] 1.025 Urine Protein 2+ H Urine Glucose (UA) 2+ H Urine Ketones Negative Urine Blood 2+ H Urine Nitrite Negative Urine Bilirubin Negative Urine Urobilinogen 0.2 Ur Leukocyte Esterase 3+ H Urine Microscopic RBC 10-20 Urine Microscopic WBC 50-100 Ur Squamous Epith Cells Not Reportable Urine Yeast 3+ SARS CoV-2 RNA Rapid MING 10/12/24 16:23 WBC RBC Hgb Hct MCV MCH MCHC RDW Coeff of Katie Plt Count Immature Gran % (Auto) Neut % (Auto) Lymph % (Auto) [place] % (Auto) Eos % (Auto) Baso % (Auto) Neut # (Auto) Lymph # (Auto) [place] # (Auto) Eos # (Auto) Baso # (Auto) Immature Gran # (Auto) Sodium Potassium Chloride Carbon Dioxide Anion Gap BUN Creatinine Estimated GFR (MDRD) BUN/Creatinine Ratio Glucose Lactic Acid Calcium Total Bilirubin AST ALT Alkaline Phosphatase NT-Pro-B Natriuret Pep Total Protein Albumin Globulin Albumin/Globulin Ratio Urine Color Urine Clarity Urine pH Ur Specific [place] Urine Protein Urine Glucose (UA) Urine Ketones Urine Blood Urine Nitrite Urine Bilirubin Urine Urobilinogen Ur Leukocyte Esterase Urine Microscopic RBC Urine Microscopic WBC Ur Squamous Epith Cells Urine Yeast SARS CoV-2 RNA Rapid MING Negative Additional Comments Additional Comments: I have independently reviewed and interpreted the labs/EKGs/imaging ordered during this hospital stay. I have reviewed outside records that are available in our EMR that pertain to medical stay including imaging/notes/labs from previous visits. Active Medications Active Medications: Medications Generic Name Dose Route Start Last Admin Trade Name Freq PRN Reason Stop Dose Admin Acetaminophen 650 mg 10/12/24 16:49 Acetaminophen 325 Mg Tablet PO Q4H PRN Mild Pain Albuterol/Ipratropium 3 ml 10/13/24 00:00 10/13/24 05:28 Ipratropium/Albuterol Vial.Neb NEB 3 ml RTQ6H YARED Administration Aspirin 81 mg 10/13/24 09:00 10/13/24 08:34 Aspirin 81 Mg Tablet. PO 81 mg DAILYWM2 YARED Administration Clopidogrel Bisulfate 75 mg 10/12/24 19:00 10/13/24 08:35 Clopidogrel Bisulfate 75 Mg Tablet PO 75 mg DAILY YARED Administration Finasteride 5 mg 10/12/24 19:00 10/13/24 08:35 Finasteride 5 Mg Tablet PO 5 mg DAILY YARED Administration CEFTRIAXONE/D5W 1 GM PREMIX 1 gm in 50 mls @ 100 mls/hr 10/13/24 21:00 Rocephin 1 Gm/50 Ml D5w IV 10/15/24 19:59 BEDTIME YARED Insulin Human Regular 0 unit 10/12/24 16:49 10/12/24 21:49 Insulin Regular, Human 100 Unit/Ml (10ml) Vial SUBCUT 10 unit PRN PRN Administration Hyperglycemia Protocol Losartan Potassium 50 mg 10/12/24 21:00 10/13/24 08:34 Losartan Potassium 25 Mg Tablet PO 50 mg BID YARED Administration Rosuvastatin Calcium 20 mg 10/12/24 19:00 10/13/24 08:34 Rosuvastatin Calcium 10 Mg Tablet PO 20 mg DAILY YARED Administration Tamsulosin HCl 0.8 mg 10/12/24 21:00 10/12/24 20:19 Tamsulosin Hcl 0.4 Mg Cap.Er.24h PO 0.8 mg BEDTIME YARED Administration Plan Plan: 1. UTI - rocephin 1G Q24H, urine culture pending, most recent culture from 08/2024 showed growth of ESCHERICHIA HERMANNII sensitive to rocephin 2. Chronic Respiratory Failure - noncompliant with oxygen and medications, 2L via nc baseline, nebs 3. DM2 - accuchecks qid with ssi, ADA diet, hold oral agents 4. HTN - chronic, continue home medications 5. BPH - chronic, continue home medications 6. Dementia - mini mental exam score of 19 indicative of cognitive impairment, family unable to care for him at home and requesting SNF placement 7. Weakness/Debility - PT/OT to eval and treat DVT Prophylaxis: Ambulation Dispo: admit to inpatient anticipate >48 hours of treatment Review Statement Review Statement: I have personally discussed and reviewed the patient's visit/currently labs/imaging/decision making with Dr. Morris, my supervising attending. Greater that 50 minutes spent with patient, 50% of the time spent with this sheila ent was devoted to counseling and coordination of care.
[2024-10-13] MEDS: K-DUR PO ONE (09:56)
[2024-10-13] MEDS: SODIUM CHLORIDE 250 ML IV ONE (14:41)
[2024-10-13] MEDS: ROCEPHIN 1 GM/50 ML D5W 1 GM/50 ML BAG IV SCH (20:36)
[2024-10-13] MEDS: ATIVAN IVP ONE (21:35)
[2024-10-14 05:20] LABS: EOSINOPHILS # (AUTO) 0.1 K/ul (0.0-0.7); EOSINOPHILS % (AUTO) 1.4 % (0.0-7.0); HEMATOCRIT 34.2 % (42.0-52.0); HEMOGLOBIN 10.6 g/dl (14.0-18.0); IMMATURE GRANULOCYTE # (AUTO) 0.1 (0.0-1.0); IMMATURE GRANULOCYTE % (AUTO) 0.7 % (0.0-5.0); LYMPHOCYTES # (AUTO) 1.3 K/uL (0.60-3.4); LYMPHOCYTES % (AUTO) 16.7 (10.0-50.0); MEAN CORPUSCULAR HEMOGLOBIN 28.5 pg (27.0-31.0); MEAN CORPUSCULAR VOLUME 91.9 fl (80.0-94.0); MONOCYTES # (AUTO) 0.5 K/uL (0.4-2.0); MONOCYTES % (AUTO) 5.9 (0-10); NEUTROPHILS # (AUTO) 5.8 K/ul (2.0-6.9); NEUTROPHILS % (AUTO) 75.3 % (42.2-75.2); PLATELET COUNT 257 10^3/uL (140-440); RDW COEFFICIENT OF VARIATION 13.7 % (11.6-14.8); RED BLOOD COUNT 3.72 10^6/ul (4.70-6.10); WHITE BLOOD COUNT 7.67 K/ul (4.2-10.2)
[2024-10-14 05:33] LABS: ALANINE AMINOTRANSFERASE 18.7 U/L (0-50); ALBUMIN 2.58 g/dL (3.5-5.0); ALKALINE PHOSPHATASE 80.5 U/L (56-119); ASPARTATE AMINO TRANSFERASE 19.5 U/L (17-59); BILIRUBIN,TOTAL 0.62 mg/dL (0.2-1.3); BLOOD UREA NITROGEN 14.4 mg/dL (9-20); CALCIUM 8.04 mg/dL (8.4-10.2); CARBON DIOXIDE 27.2 mmol/L (22-30.0); CHLORIDE 101.2 mmol/L (98-107); CREATININE 0.85 mg/dL (0.60-1.10); GLUCOSE 157.9 mg/dL (74-106); POTASSIUM 3.49 mmol/L (3.5-5.1); SODIUM 133.3 mmol/L (134.5-145); TOTAL PROTEIN 5.54 g/dL (6.3-8.2)
--- NOTE | 2024-10-14 09:34 | PCM.PROG ---
Date/Time Seen Date Seen by Provider: 10/14/24 Provider Provider[facility] Chief Complaint Chief Complaint: RESPRATORY FAILURE Subjective Subjective: Resting quietly with eyes closed. Became irritated last night, received 0.5 mg ativan Objective Appearance: Positive No Apparent Distress, Ill-Appearing, Thin and Cachectic Chest/Lungs: Positive Symmetrical With Equal Breath Sounds and Clear to Auscultation Bilaterally Heart: Positive RRR and Pulses Normal GI/: Positive Soft, Nontender, Bowel Sounds Normal and No Distention Musculoskeletal: Positive Not Examined Neurological: Positive Sensation Intact, Motor intact and Alert Vital Signs Vital Signs: Vital Signs: Last 24 Hours 10/13/24 10:00 10/13/24 10:07 10/13/24 14:00 Temperature 98.1 F 98.9 F Temperature Source Temporal Artery Scan Temporal Artery Scan Pulse Rate 96 97 Respiratory Rate 20 16 Blood Pressure 108/68 84/56 L Blood Pressure Mean 81 65 Blood Pressure Location Right Arm Left Arm Blood Pressure Position Sitting O2 Sat by Pulse Oximetry 93 L 93 L 95 Oxygen Delivery Method Room Air Room Air Room Air Oxygen Flow Rate 10/13/24 14:00 10/13/24 20:00 10/13/24 20:00 Temperature Temperature Source Pulse Rate Respiratory Rate Blood Pressure Blood Pressure Mean Blood Pressure Location Blood Pressure Position O2 Sat by Pulse Oximetry Oxygen Delivery Method Room Air Nasal Cannula Nasal Cannula Oxygen Flow Rate 2 2 10/13/24 21:44 10/14/24 05:22 10/14/24 05:27 Temperature 97 F L 96.9 F L Temperature Source Temporal Artery Scan Pulse Rate 82 93 Respiratory Rate 16 16 Blood Pressure 122/74 119/80 Blood Pressure Mean 90 93 Blood Pressure Location Left Arm Left Arm Blood Pressure Position Supine Supine O2 Sat by Pulse Oximetry 95 97 93 L Oxygen Delivery Method Room Air Nasal Cannula Nasal Cannula Oxygen Flow Rate 2 2 10/14/24 08:00 Temperature Temperature Source Pulse Rate Respiratory Rate Blood Pressure Blood Pressure Mean Blood Pressure Location Blood Pressure Position O2 Sat by Pulse Oximetry Oxygen Delivery Method Nasal Cannula Oxygen Flow Rate 2 Lab Results Lab Results: Lab Results: Last 24 Hours 10/14/24 04:53 WBC 7.67 RBC 3.72 L Hgb 10.6 L Hct 34.2 L MCV 91.9 MCH 28.5 MCHC 31.0 L RDW Coeff of Katie 13.7 Plt Count 257 Immature Gran % (Auto) 0.7 Neut % (Auto) 75.3 H Lymph % (Auto) 16.7 [place] % (Auto) 5.9 Eos % (Auto) 1.4 Baso % (Auto) 0.0 Neut # (Auto) 5.8 Lymph # (Auto) 1.3 [place] # (Auto) 0.5 Eos # (Auto) 0.1 Baso # (Auto) 0.0 Immature Gran # (Auto) 0.1 Sodium 133.3 L Potassium 3.49 L Chloride 101.2 Carbon Dioxide 27.2 Anion Gap 8.39 BUN 14.4 Creatinine 0.85 Estimated GFR (MDRD) 88.00 BUN/Creatinine Ratio 16.94 Glucose 157.9 H Calcium 8.04 L Total Bilirubin 0.62 AST 19.5 ALT 18.7 Alkaline Phosphatase 80.5 Total Protein 5.54 L Albumin 2.58 L Globulin 2.96 Albumin/Globulin Ratio 0.87 Additional Comments Additional Comments: I have independently reviewed and interpreted the labs/EKGs/imaging ordered during this hospital stay. I have reviewed outside records that are available in our EMR that pertain to medical stay including imaging/notes/labs from previous visits. Active Medications Active Medications: Medications Generic Name Dose Route Start Last Admin Trade Name Freq PRN Reason Stop Dose Admin Acetaminophen 650 mg 10/12/24 16:49 Acetaminophen 325 Mg Tablet PO Q4H PRN Mild Pain Albuterol/Ipratropium 3 ml 10/13/24 00:00 10/14/24 05:28 Ipratropium/Albuterol Vial.Neb NEB 3 ml RTQ6H YARED Administration Aspirin 81 mg 10/13/24 09:00 10/14/24 08:21 Aspirin 81 Mg Tablet. PO 81 mg DAILYWM2 YARED Administration Clopidogrel Bisulfate 75 mg 10/12/24 19:00 10/14/24 08:21 Clopidogrel Bisulfate 75 Mg Tablet PO 75 mg DAILY YARED Administration Finasteride 5 mg 10/12/24 19:00 10/14/24 08:21 Finasteride 5 Mg Tablet PO 5 mg DAILY YARED Administration CEFTRIAXONE/D5W 1 GM PREMIX 1 gm in 50 mls @ 100 mls/hr 10/13/24 21:00 10/13/24 20:36 Rocephin 1 Gm/50 Ml D5w IV 10/15/24 19:59 100 mls/hr BEDTIME YARED Administration Insulin Human Regular 0 unit 10/12/24 16:49 10/13/24 20:54 Insulin Regular, Human 100 Unit/Ml (10ml) Vial SUBCUT 4 unit PRN PRN Administration Hyperglycemia Protocol Rosuvastatin Calcium 20 mg 10/12/24 19:00 10/14/24 08:21 Rosuvastatin Calcium 10 Mg Tablet PO 20 mg DAILY YARED Administration Tamsulosin HCl 0.8 mg 10/12/24 21:00 10/13/24 20:36 Tamsulosin Hcl 0.4 Mg Cap.Er.24h PO 0.8 mg BEDTIME YARED Administration Plan Plan: 1. UTI - rocephin 1G Q24H, urine culture showing mixed growth and suggesting contaminant, highly unlikely, urine was white/yellow of color on admission, recollect culture today, most recent culture from 08/2024 showed growth of ESCHERICHIA HERMANNII sensitive to rocephin 2. Chronic Respiratory Failure - noncompliant with oxygen and medications, 2L via nc baseline, nebs 3. DM2 - accuchecks qid with ssi, ADA diet, hold oral agents 4. HTN - chronic, continue home medications 5. BPH - chronic, continue home medications 6. Dementia - mini mental exam score of 19 indicative of cognitive impairment, unable to perform ADLs, family unable to care for him at home and requesting SNF placement 7. Weakness/Debility - PT/OT to eval and treat DVT Prophylaxis: Ambulation Dispo: D/c to [facility] Wednesday Review Statement Review Statement: I have personally discussed and reviewed the patient's visit/currently labs/imaging/decision making with Dr. Morris, my supervising attending. Greater that 50 minutes spent with patient, 50% of the time spent with this patient was devoted to counseling and coordination of care.
[2024-10-14] MEDS: K-DUR PO ONE (09:53)
[2024-10-14] MEDS: TYLENOL PO PRN (13:17)
[2024-10-14] MEDS: NORCO 5-325 PO ONE (19:30)
[2024-10-14] MEDS: ATIVAN IVP ONE (23:14)
[2024-10-15 05:24] LABS: EOSINOPHILS # (AUTO) 0.1 K/ul (0.0-0.7); EOSINOPHILS % (AUTO) 1.8 % (0.0-7.0); HEMATOCRIT 32.3 % (42.0-52.0); IMMATURE GRANULOCYTE % (AUTO) 0.7 % (0.0-5.0); LYMPHOCYTES # (AUTO) 1.6 K/uL (0.60-3.4); LYMPHOCYTES % (AUTO) 25.4 (10.0-50.0); MEAN CORPUSCULAR HEMOGLOBIN 28.3 pg (27.0-31.0); MEAN CORPUSCULAR VOLUME 91.5 fl (80.0-94.0); MONOCYTES # (AUTO) 0.4 K/uL (0.4-2.0); MONOCYTES % (AUTO) 6.8 (0-10); NEUTROPHILS % (AUTO) 65.3 % (42.2-75.2); PLATELET COUNT 244 10^3/uL (140-440); RDW COEFFICIENT OF VARIATION 13.9 % (11.6-14.8); RED BLOOD COUNT 3.53 10^6/ul (4.70-6.10); WHITE BLOOD COUNT 6.14 K/ul (4.2-10.2)
[2024-10-15 05:38] LABS: ALANINE AMINOTRANSFERASE 21.7 U/L (0-50); ALBUMIN 2.5 g/dL (3.5-5.0); ALKALINE PHOSPHATASE 81.9 U/L (56-119); ASPARTATE AMINO TRANSFERASE 23.7 U/L (17-59); BILIRUBIN,TOTAL 0.51 mg/dL (0.2-1.3); BLOOD UREA NITROGEN 14.2 mg/dL (9-20); CALCIUM 7.99 mg/dL (8.4-10.2); CREATININE 0.89 mg/dL (0.60-1.10); GLUCOSE 179.2 mg/dL (74-106); POTASSIUM 3.99 mmol/L (3.5-5.1); SODIUM 133.2 mmol/L (134.5-145); TOTAL PROTEIN 5.56 g/dL (6.3-8.2)
--- NOTE | 2024-10-15 09:43 | PCM.PROG ---
Date/Time Seen Date Seen by Provider: 10/15/24 Time Seen by Provider: 09:30 Provider Provider: GEORGIE [facility]ANEGAS[facility] Chief Complaint Chief Complaint: RESPRATORY FAILURE Subjective Subjective: Agitated with staff at bedtime. Stating "I can't breathe" O2 sat was 97%, lung sounds clear per RN. Objective Appearance: Positive No Apparent Distress, Ill-Appearing, Thin and Cachectic Chest/Lungs: Positive Symmetrical With Equal Breath Sounds, Clear to Au scultation Bilaterally and Good Air Movement all 4 Lung Low Heart: Positive RRR and Pulses Normal GI/: Positive Soft, Nontender, Bowel Sounds Normal and No Distention Musculoskeletal: Positive Not Examined Neurological: Positive Sensation Intact, Motor intact, Alert and Oriented (person and place) Vital Signs Vital Signs: Vital Signs: Last 24 Hours 10/14/24 10:00 10/14/24 14:00 10/14/24 14:00 Temperature 97.4 F L Temperature Source Temporal Artery Scan Pulse Rate 91 Respiratory Rate 20 Blood Pressure 104/68 Blood Pressure Mean 80 Blood Pressure Location Right Arm Blood Pressure Position O2 Sat by Pulse Oximetry 97 Oxygen Delivery Method Nasal Cannula Nasal Cannula Nasal Cannula Oxygen Flow Rate 2 2 2 10/14/24 19:48 10/14/24 20:00 10/14/24 20:37 Temperature 97.5 F L Temperature Source Temporal Artery Scan Pulse Rate 83 Respiratory Rate 16 Blood Pressure 122/79 Blood Pressure Mean 93 Blood Pressure Location Left Arm Blood Pressure Position Supine O2 Sat by Pulse Oximetry 94 L 94 L Oxygen Delivery Method Nasal Cannula Nasal Cannula Nasal Cannula Oxygen Flow Rate 2 2 2 10/15/24 05:12 10/15/24 05:19 Temperature 97.4 F L Temperature Source Temporal Artery Scan Pulse Rate 86 Respiratory Rate 18 Blood Pressure 127/80 Blood Pressure Mean 95 Blood Pressure Location Left Arm Blood Pressure Position Supine O2 Sat by Pulse Oximetry 96 96 Oxygen Delivery Method Nasal Cannula Nasal Cannula Oxygen Flow Rate 2 2 Lab Results Lab Results: Lab Results: Last 24 Hours 10/15/24 04:58 WBC 6.14 RBC 3.53 L Hgb 10.0 L Hct 32.3 L MCV 91.5 MCH 28.3 MCHC 31.0 L RDW Coeff of Katie 13.9 Plt Count 244 Immature Gran % (Auto) 0.7 Neut % (Auto) 65.3 Lymph % (Auto) 25.4 [place] % (Auto) 6.8 Eos % (Auto) 1.8 Baso % (Auto) 0.0 Neut # (Auto) 4.0 Lymph # (Auto) 1.6 [place] # (Auto) 0.4 Eos # (Auto) 0.1 Baso # (Auto) 0.0 Immature Gran # (Auto) 0.0 Sodium 133.2 L Potassium 3.99 Chloride 100.0 Carbon Dioxide 28.0 Anion Gap 9.19 BUN 14.2 Creatinine 0.89 Estimated GFR (MDRD) 83.00 BUN/Creatinine Ratio 15.95 Glucose 179.2 H Calcium 7.99 L Total Bilirubin 0.51 AST 23.7 ALT 21.7 Alkaline Phosphatase 81.9 Total Protein 5.56 L Albumin 2.50 L Globulin 3.06 Albumin/Globulin Ratio 0.81 Additional Comments Additional Comments: I have independently reviewed and interpreted the labs/EKGs/imaging ordered during this hospital stay. I have reviewed outside records that are available in our EMR that pertain to medical stay including imaging/notes/labs from previous visits. Active Medications Active Medications: Medications Generic Name Dose Route Start Last Admin Trade Name Freq PRN Reason Stop Dose Admin Acetaminophen 650 mg 10/12/24 16:49 10/14/24 13:17 Acetaminophen 325 Mg Tablet PO 650 mg Q4H PRN Administration Mild Pain Albuterol/Ipratropium 3 ml 10/13/24 00:00 10/15/24 05:16 Ipratropium/Albuterol Vial.Neb NEB 3 ml RTQ6H YARED Administration Aspirin 81 mg 10/13/24 09:00 10/15/24 08:15 Aspirin 81 Mg Tablet. PO 81 mg DAILYWM2 YARED Administration Clopidogrel Bisulfate 75 mg 10/12/24 19:00 10/15/24 08:15 Clopidogrel Bisulfate 75 Mg Tablet PO 75 mg DAILY YARED Administration Finasteride 5 mg 10/12/24 19:00 10/15/24 08:15 Finasteride 5 Mg Tablet PO 5 mg DAILY YARED Administration CEFTRIAXONE/D5W 1 GM PREMIX 1 gm in 50 mls @ 100 mls/hr 10/13/24 21:00 10/14/24 20:01 Rocephin 1 Gm/50 Ml D5w IV 10/15/24 23:59 100 mls/hr BEDTIME YARED Administration Insulin Human Regular 0 unit 10/12/24 16:49 10/14/24 20:07 Insulin Regular, Human 100 Unit/Ml (10ml) Vial SUBCUT 8 unit PRN PRN Administration Hyperglycemia Protocol Rosuvastatin Calcium 20 mg 10/12/24 19:00 10/15/24 08:15 Rosuvastatin Calcium 10 Mg Tablet PO 20 mg DAILY YARED Administration Tamsulosin HCl 0.8 mg 10/12/24 21:00 10/14/24 20:00 Tamsulosin Hcl 0.4 Mg Cap.Er.24h PO 0.8 mg BEDTIME YARED Administration Plan Plan: 1. UTI - rocephin 1G Q24H, urine culture showing mixed growth and suggesting contaminant, highly unlikely, urine was white/yellow of color on admission, culture recollected yesterday - showing too young to read this am, most recent culture from 08/2024 showed growth of ESCHERICHIA HERMANNII sensitive to rocephin 2. Chronic Respiratory Failure - noncompliant with oxygen and medications, 2L via nc baseline, nebs 3. DM2 - accuchecks qid with ssi, ADA diet, hold oral agents 4. HTN - chronic, continue home medications 5. BPH - chronic, continue home medications 6. Dementia - mini mental exam score of 19 indicative of cognitive impairment, unable to perform ADLs, family unable to care for him at home and requesting SNF placement 7. Weakness/Debility - PT/OT to eval and treat DVT Prophylaxis: Lovenox Dispo: D/c to [facility] Wednesday Review Statement Review Statement: I have personally discussed and reviewed the patient's visit/currently labs/imaging/decision making with Dr. Morris, my supervising attending. Greater that 50 minutes spent with patient, 50% of the time spent with this patient was devoted to counseling and coordination of care.
[2024-10-15] MEDS: LOVENOX SUBCUT SCH (11:07)
[2024-10-15] MEDS: ATIVAN PO PRN (20:00)
[2024-10-16 05:19] LABS: BASOPHILS % (AUTO) 0.2 % (0.0-3.0); EOSINOPHILS # (AUTO) 0.1 K/ul (0.0-0.7); EOSINOPHILS % (AUTO) 1.1 % (0.0-7.0); HEMATOCRIT 32.4 % (42.0-52.0); HEMOGLOBIN 10.1 g/dl (14.0-18.0); IMMATURE GRANULOCYTE # (AUTO) 0.1 (0.0-1.0); IMMATURE GRANULOCYTE % (AUTO) 0.8 % (0.0-5.0); LYMPHOCYTES # (AUTO) 1.6 K/uL (0.60-3.4); LYMPHOCYTES % (AUTO) 24.2 (10.0-50.0); MEAN CORPUSCULAR HEMOGLOBIN 28.5 pg (27.0-31.0); MEAN CORPUSCULAR HGB CONC 31.2 (31.8-35.4); MEAN CORPUSCULAR VOLUME 91.3 fl (80.0-94.0); MONOCYTES # (AUTO) 0.6 K/uL (0.4-2.0); MONOCYTES % (AUTO) 8.5 (0-10); NEUTROPHILS # (AUTO) 4.2 K/ul (2.0-6.9); NEUTROPHILS % (AUTO) 65.2 % (42.2-75.2); PLATELET COUNT 249 10^3/uL (140-440); RDW COEFFICIENT OF VARIATION 13.7 % (11.6-14.8); RED BLOOD COUNT 3.55 10^6/ul (4.70-6.10); WHITE BLOOD COUNT 6.49 K/ul (4.2-10.2)
[2024-10-16 05:31] LABS: ALANINE AMINOTRANSFERASE 25.8 U/L (0-50); ALBUMIN 2.67 g/dL (3.5-5.0); ASPARTATE AMINO TRANSFERASE 33.2 U/L (17-59); BILIRUBIN,TOTAL 0.56 mg/dL (0.2-1.3); BLOOD UREA NITROGEN 13.5 mg/dL (9-20); CALCIUM 8.02 mg/dL (8.4-10.2); CARBON DIOXIDE 28.9 mmol/L (22-30.0); CREATININE 0.93 mg/dL (0.60-1.10); GLUCOSE 126.1 mg/dL (74-106); POTASSIUM 4.04 mmol/L (3.5-5.1); SODIUM 132.4 mmol/L (134.5-145); TOTAL PROTEIN 5.8 g/dL (6.3-8.2)
[2024-10-16 05:33] VITALS: RESP 20
[2024-10-16] MEDS: DIFLUCAN PO ONE (09:58)
[2024-10-16] MEDS: NYSTATIN CREAM TP SCH (10:06)
--- NOTE | 2024-10-16 10:22 | DCSUM ---
Admission Date Admission Date: 10/12/24 Discharge Date Discharge Date: 10/16/24 Admission Diagnosis Admission Diagnosis: 1. UTI 2. Chronic Respiratory Failure Discharge Diagnosis Discharge Diagnosis: 1. Cystitis due to vilma 2. Chronic Respiratory Failure 3. DM2 4. HTN 5. BPH 6. Dementia 7. Weakness/Debility Hospital Provider Hospital Provider: Renetta Earl PA-C, [facility] Primary Care Physician Primary Care Physician: RUSSEL MORRIS MD Summary of History and Physical Summary of History and Physical: 74 yo male with pmh of COPD, urinary retention/BPH, DM2, HTN and HLD presented to the ER with complaints of shortness of breath. Patient has been admitted at [facility] once a month since July. states that patient has been refusing to get out of bed, incontinent, and refusing to wear his oxygen. He is total care right now and has been unable to bathe him or provide ADLs. In ER, patient had c/o abd pain. Bladder scan obtained and showed 200. Lombardo catheter placed due to patient hx of retention and had a lombardo recently that was removed by Dr. Lacy. Had >500 mL urine output immediately and abd pain resolved. UA showing UTI. Admitted to med/surg observation. Of note, reports she is unable to care for patient and is requesting placement to [facility]. Hospital Course Subjective: Patient was treated with rocephin for UTI. Initial urine culture showed contamination, recommended repeat sample. Repeat sample showing yeast. Pt does have yeast to penis area and near lombardo insertion area. Urine continues to have a milky look to it. Will treat with 14 days of fluconazole and also topical nystatin. Please reassess bmp in 1 week to check crcl, as patient is borderline for dosing of fluconazole. Pt has required oxygen on and off during stay, he is noncompliant with it. Pt was recently treated for pneumonia in recent hospital stay. Patient and family decided on placement at [facility] as they can no longer meet his needs at home. He has been declining over last several months with multiple hospitalizations. Discharged in stable condition. Pt has had multiple foleys in last few months. He follows with urology outpatient. He has trialed taking lombardo out multiple times but continues to have retention. Will discharge with lombardo at this time. Appearance: No Apparent Distress and Alert HEENT: MMM CVS: No Murmur Abdomen: Soft, Non-Tender and No Distention Respiratory: No Accessory Muscle Use Extremities: No Edema Additional Findings: + genitalia - penis has yeast rash noted near distal area Vital Signs: Most Recent Vital Signs Temperature 97.5 F L 10/16/24 05:33 Temperature Source Temporal Artery Scan 10/16/24 05:33 Temperature Source Temporal Artery Scan 10/12/24 15:56 Pulse Rate 84 10/16/24 05:33 Respiratory Rate 20 10/16/24 08:00 Blood Pressure 150/97 H 10/16/24 05:33 Blood Pressure Mean 114 10/16/24 05:33 Blood Pressure Right Arm 135/94 10/12/24 17:58 Blood Pressure Location Left Arm 10/16/24 05:33 Blood Pressure Position Sitting 10/16/24 05:33 O2 Sat by Pulse Oximetry 97 10/16/24 05:33 Oxygen Delivery Method Nasal Cannula 10/16/24 08:00 Oxygen Flow Rate 2 10/16/24 08:00 Height 6 ft 10/12/24 17:58 Weight 52.2 kg 10/12/24 17:58 Telemetry Heart Rate 93 10/05/24 13:00 Telemetry SPO2 93 10/05/24 13:00 Imaging: EXAM: CHEST RADIOGRAPH (1 VIEW) FINDINGS: Lines, Tubes, Devices: None Lungs and Pleura: Improved appearance to the right mid lung opacity. Right infrahilar opacity, possibly related to scarring or prominent interstitial markings. Pneumonia is not excludable. Scattered granulomas. Emphysematous changes. Cardiac silhouette: Normal. Bones: No acute abnormality. IMPRESSION: Right infrahilar opacity, possibly scarring or prominent interstitial markings. However, pneumonia is not excludable. Lab Results Last 24 Hours: 10/16/24 05:15 WBC 6.49 RBC 3.55 L Hgb 10.1 L Hct 32.4 L MCV 91.3 MCH 28.5 MCHC 31.2 L RDW Coeff of Katie 13.7 Plt Count 249 Immature Gran % (Auto) 0.8 Neut % (Auto) 65.2 Lymph % (Auto) 24.2 Borden % (Auto) 8.5 Eos % (Auto) 1.1 Baso % (Auto) 0.2 Neut # (Auto) 4.2 Lymph # (Auto) 1.6 Borden # (Auto) 0.6 Eos # (Auto) 0.1 Baso # (Auto) 0.0 Immature Gran # (Auto) 0.1 Sodium 132.4 L Potassium 4.04 Chloride 100.0 Carbon Dioxide 28.9 Anion Gap 7.54 BUN 13.5 Creatinine 0.93 Estimated GFR (MDRD) 79.00 BUN/Creatinine Ratio 14.51 Glucose 126.1 H Calcium 8.02 L Total Bilirubin 0.56 AST 33.2 ALT 25.8 Alkaline Phosphatase 87.0 Total Protein 5.80 L Albumin 2.67 L Globulin 3.13 Albumin/Globulin Ratio 0.85 Discharge Instructions Discharge Planning: Discharge Planning > [address] Ashley Morris. Discharge Medications: Medications at Discharge (Home Meds & RX) losartan 50 mg tablet See Rx Instructions .Route .COMPLEX #60 tabs 03/13/24 rosuvastatin 20 mg tablet See Rx Instructions .Route .COMPLEX #30 tabs 08/07/24 clopidogrel 75 mg tablet 75 mg PO DAILY #90 tabs 09/05/24 tamsulosin 0.4 mg capsule 0.8 mg PO BEDTIME 09/18/24 finasteride 5 mg tablet 5 mg PO DAILY #30 tabs 09/19/24 metformin 1,000 mg tablet 1,000 mg PO 2XD #60 tabs 10/03/24 ipratropium 0.5 mg-albuterol 3 mg (2.5 mg base)/3 mL nebulization soln 3 ml NEB RTQ6H PRN SOB #60 amps 10/05/24 aspirin 81 mg tablet,delayed release (Adult Aspirin Regimen) 81 mg PO DAILY 10/12/24 fluconazole 200 mg tablet 200 mg PO DAILY 13 days #13 tabs 10/16/24 nystatin 100,000 unit/gram topical cream 1 applic topical BID #30 grams 10/16/24 Discharge Plan Discharge Discharge Orders: Discharge Patient (ONCE); Ordered 10/16/24 Ordered By: RENETTA EARL Activity Restrictions/Additional Instructions: DISCHARGE TO SNF PT AND OT TO EVAL AND TREAT FALL PRECAUTIONS CONTINUE LOMBARDO FOLLOW UP WITH UROLOGY OUTPATIENT DX: URINARY RETENTION, CHRONIC RESPIRATORY FAILURE OXYGEN 1-2 L PRN NEBS PRN START FLUCONAZOLE DUE TO YEAST IN URINE START NYSTATIN BID TO PENIS UNTIL RASH CLEARS RECOMMEND REPEAT BMP IN 1 WEEK TO MONITOR CRCL, PT IS BORDERLINE FOR DOSE OF FLUCONAZOLE Patient Disposition: TRANSFER SNF Prescriptions: New nystatin 100,000 unit/gram Cream 1 applic topical BID Qty: 30 0RF fluconazole 200 mg tablet 200 mg PO DAILY 13 Days Qty: 13 0RF Rx Instructions: STARTING 10/17 Continued losartan 50 mg tablet See Rx Instructions .ROUTE .COMPLEX Qty: 60 5RF Dose Instruction: TAKE ONE TABLET TWICE DAILY Rx Instructions: TAKE ONE TABLET TWICE DAILY rosuvastatin 20 mg tablet See Rx Instructions .ROUTE .COMPLEX Qty: 30 3RF Dose Instruction: TAKE ONE TABLET DAILY Rx Instructions: TAKE ONE TABLET DAILY clopidogrel 75 mg tablet 75 mg PO DAILY Qty: 90 1RF metformin 1,000 mg tablet 1,000 mg PO 2XD Qty: 60 2RF tamsulosin 0.4 mg capsule 0.8 mg PO BEDTIME finasteride 5 mg Tablet 5 mg PO DAILY Qty: 30 0RF aspirin [Adult Aspirin Regimen] 81 mg tablet,delayed release (DR/EC) 81 mg PO DAILY ipratropium-albuterol 0.5 mg-3 mg(2.5 mg base)/3 mL Solution For Nebulization 3 ml NEB RTQ6H PRN (Reason: SOB) Qty: 60 0RF Did you review [place] [employer] for ALL controlled substances?: Not Applicable Discussed opioids are addictive and Narcan is available by prescription or from pharmacy.: No Condition: Stable
[2024-10-16] MEDS: HUMULIN R (10ML) SUBCUT ONE ×3 (11:05→12:23)
[2024-10-16] MEDS: GLUCOPHAGE PO ONE (12:22)
[2024-10-16 14:13] VITALS: BP 119/64; PULSE 108; TEMP 98.7
== END 2024-10-16 14:45 | DRG 728 ==
LOC: MEDSURG B 15:56 → ED 15:56 → MEDSURG B 17:50 → OBSVTOIN 10-13 09:03 → INTOOBSV 10-13 09:03 → UNDODISOB 10-16 14:45
PROVIDERS: ADMIT Hospitalist; ATTEND Nurse Practitioner Family